=== PATIENT | male | born 1960 | race Caucasian/White ===

== ENCOUNTER 2017-11-11 19:48 | Emergency (ER) | payer OTHER | END 2017-11-11 23:17 | disposition short-term general hospital (02) | LOC: ED 19:48 | DX: S12.400A Unspecified displaced fracture of fifth cervical vertebra, initial encounter for closed fracture (principal); S12.600A Unspecified displaced fracture of seventh cervical vertebra, initial encounter for closed fracture; S12.300A Unspecified displaced fracture of fourth cervical vertebra, initial encounter for closed fracture; F07.81 Postconcussional syndrome; V80.010A Animal-rider injured by fall from or being thrown from horse in noncollision accident, initial encounter | CPT/HCPCS: 70450; 70486; 71046; 72125; 73090; 80053; 82150; 82550; 83690; 85025; 86850; 86900; 86901; 96374; 96375; 99285; G0480; J1170; J2060; J2405 ==

== ENCOUNTER 2019-04-01 20:17 | Emergency (ER) | payer OTHER ==
[~2019-04-01] VITALS: Ht 188 cm; Wt 97.5 kg
--- OUTSIDE RECORDS SUMMARY | ~2019-04-01 | XMS | Encounter Summary ---
Demographics + + + | Address | [address] | | | [place] [address] | + + + | Home Phone | | + + + | Preferred Language | Unknown | + + + | Marital Status | | + + + | Episcopal Affiliation | Unknown | + + + | Race | Unknown | + + + | Ethnic Group | Unknown | + + + Author + + + | Author | [facility] | | | and [place] | + + + | Organization | [facility] | | | and [place] | + + + | Address | Unknown | + + + | Phone | Unavailable | + + + Support + + + + + | Name | Relationship | Address | Phone | + + + + + | Radha Dowling | ECON | [address] | | | | | [place] | | | | | [address] | | + + + + + Care Team Providers + +------+ + | Care Wheel Tuner Name | Role | Phone | + +------+ + | Nick Yeh DO | PCP | | + +------+ + Encounter Details +--------+ + + + + | Date | Type | Department | Care Team | Description | +--------+ + + + + | 10/05/ | Orders Only | [facility] | Nate Rajan, | | | 2018 | | NEUROSURGERY [address] | | | | | [address] | [address] | | | | | [place], [place] | [place] [address] | | | | | [address] | [phone] | | | | | [phone] | | | +--------+ + + + + Social History + +-------+ +--------+------+ | Tobacco Use | Types | Packs/Day | Years | Date | | | | | Used | | + +-------+ +--------+------+ | Never Assessed | | | | | + +-------+ +--------+------+ + + + | Sex Assigned at | Date Recorded | | | | + + + | Not on file | | + + + + + + + | Job Start Date | Occupation | Industry | + + + + | Not on file | Not on file | Not on file | + + + + + + + + | Travel History | Travel Start | Travel End | + + + + + + | No recent travel history available. | + + documented as of this encounter Plan of Treatment Not on filedocumented as of this encounter Visit Diagnoses Not on filedocumented in this encounter"
--- OUTSIDE RECORDS SUMMARY | ~2019-04-01 | XMS | Encounter Summary ---
Demographics + + + | Address | [address] | | | [place] [address] | + + + | Home Phone | | + + + | Preferred Language | Unknown | + + + | Marital Status | | + + + | Lutheran Affiliation | Unknown | + + + | Race | Unknown | + + + | Ethnic Group | Unknown | + + + Author + + + | Author | [facility] | | | and [place] | + + + | Organization | [facility] | | | and [place] | + + + | Address | Unknown | + + + | Phone | Unavailable | + + + Support + + + + + | Name | Relationship | Address | Phone | + + + + + | Radha Dowling | ECON | [address] | | | | | [place] | | | | | [address] | | + + + + + Care Team Providers + +------+ + | Care Financial Services Specialist Name | Role | Phone | + +------+ + | Nick Yeh DO | PCP | | + +------+ + Reason for Referral Evaluate & Treat (Routine) + + + + + + + | Status | Reason | Specialty | Diagnoses / | Referred By | Referred To | | | | | Procedures | Contact | Contact | + + + + + + + | Authorized | Specialty | Gastroenterol | Diagnoses | [facility] | | Services | ogy | Colon | Nick Olsen DO | Gastroenterol | | | Required | | cancer | [address] | [address] | | | | screening | [address] [place] | [address] | | | | | | [place], [place] | [address] [place] | | | | | | [address] | [place], [place] | | | | | | Phone: | [phone] | | | | | | [phone] | Phone: | | | | | | Fax: | [phone] | | | | | | [phone] | Fax: | | | | | | | [phone] | + + + + + + + Reason for Visit + + + | Reason | Comments | + + + | Establish Care | | + + + Encounter Details +--------+---------+ + + + | Date | Type | Department | Care Team | Description | +--------+---------+ + + + | 03/04/ | Office | [facility] | Nick Yeh, | Encounter to | | 2019 | Visit | [facility] [place] | DO [address] | establish care | | | | [address] | [place] [facility] | (Primary Dx); | | | | [place], [place] | [address] | Preventative health | | | | [address] | | care; Colon cancer | | | | [phone] | | screening; Prostate | | | | | | cancer screening; | | | | | | Need for hepatitis C | | | | | | screening test; | | | | | | Need for | | | | | | vaccination; Need | | | | | | for shingles vaccine | +--------+---------+ + + + Social History + +-------+ +--------+------+ | Tobacco Use | Types | Packs/Day | Years | Date | | | | | Used | | + +-------+ +--------+------+ | Never Smoker | | | | | + +-------+ +--------+------+ + +---+---+---+ | Smokeless Tobacco: | | | | | Never Used | | | | + +---+---+---+ + + + + + | Alcohol Use | Drinks/Week | oz/Week | Comments | + + + + + | Yes | 3-5 Cans of beer | 3.0 - 5.0 | Socially | + + + + + + + + | Sex Assigned at [...] + + documented as of this encounter Last Filed Vital Signs + +---------+ + + | Vital Sign | Reading | Time Taken | Comments | + +---------+ + + | Blood Pressure | 108/70 | 03/04/2019 1:58 PM | | | | | PST | | + +---------+ + + | Pulse | 50 | 03/04/2019 1:58 PM | | | | | PST | | + +---------+ + + | Temperature | - | - | | + +---------+ + + | Respiratory Rate | - | - | | + +---------+ + + | Oxygen Saturation | 97% | 03/04/2019 1:58 PM | | | | | PST | | + +---------+ + + | Inhaled Oxygen | - | - | | | Concentration | | | | + +---------+ + + | Weight | - | - | | + +---------+ + + | Height | - | - | | + +---------+ + + | Body Mass Index | - | - | | + +---------+ + + documented in this encounter Patient Instructions Patient Instructions Shanta Ramos, Manager Style - 03/04/2019 2:00 PM PSTFormatti roman of this note might be different from the original. Please complete fasting labs: Please fast 10 hours on average prior to blood test. Water and black coffee are fine Lab Hours: [facility] Lab: [address] Saturday-Saturday 7 AM to 5 PM (walk ins), 5:30 PM (patients being seen in clinic/here for appt s) Closed weekends [facility]: [address] Saturday-Saturday 7 AM to 5:30 PM Closed weekends Urgent Care Lab: [address] Saturday-Saturday 8 AM to 12 PM (all patients) Referrals: During your office visit today we have ordered referrals for you - Gastroenterology -. The referral will be reviewed by our Insurance Authorization Coordinators. Once approved the ord er will be sent to the referred providers office. The referred providers office will contact you to schedule. If you have not heard to schedule your referral/s within 10 business days, please call our Referral Puller Machine at [phone] to check on the status of the referral a uthorization. Prevention Guidelines, Men Ages 50 to 64 Screening tests and vaccines are an important part of managing your health. A screening lan t is done to find possible disorders or diseases in people who don't have any symptoms. The goal is to find a disease early so lifestyle changes can be made and you can be watched more closely to reduce the risk of disease, or to detect it early enough to treat it most effect ively. Screening tests are not considered diagnostic, but are used to determine if more test ing is needed. Health counseling is essential, too. Below are guidelines for these, for men ages 50 to 64. Talk with your healthcare provider to make sure you re up-to-date on what y ou need. Screening Who needs it How often Alcohol misuse All men in this age group At routine exams Blood pressure All men in this age group Yearly checkup if your blood pressure is normal Normal blood pressure is less than 120/80 mm Hg If your blood pressure reading is higher than normal, follow the advice of your healthcare provider Colorectal cancer All men in this age group Flexible sigmoidoscopy every 5 years, or colono scopy every 10 years, or double-contrast barium enema every 5 years; yearly fecal occult blo od test or fecal immunochemical test; or a stool DNA test as often as your healthcare provid er advises; talk with your healthcare provider about which tests are best for you Depression All men in this age group At routine exams Type 2 diabetes or prediabetes All men beginning at age 45 and men without symptoms at any age who are overweight or obese and have 1 or more other risk factors for diabetes At least every 3 years (yearly if your blood sugar has already begun to rise) Type 2 diabetes All men with prediabetes Every year Hepatitis C Men at increased risk for infection talk with your healthcare provider At r outine exams. All men ages 50 to 70 should be tested at least once for hepatitis C. High cholesterol or triglycerides All men in this age group At least every 5 years HIV Men at increased risk for infection talk with your healthcare provider At routine e xams Lung cancer Adults age 55 to 80 who have smoked Yearly screening in smokers with 30 pack-ye ar history of smoking or who quit within 15 years Obesity All men in this age group At routine exams Prostate cancer Starting at age 45, talk to healthcare provider about risks and benefits of digital rectal exam (NURY) and prostate-specific antigen (PSA) screening1 At routine exams Syphilis Men at increased risk for infection talk with your healthcare provider At rout ine exams Tuberculosis Men at increased risk for infection talk with your healthcare provider Ask your healthcare provider Vision All men in this age group Ask your healthcare provider Vaccine Who needs it How often Chickenpox (varicella) All men in this age group who have no record of this infection or va ccine 2 doses; second dose should be given at least 4 weeks after the first dose Hepatitis A Men at increased risk for infection talk with your healthcare provider 2 do ses given at least 6 months apart Hepatitis B Men at increased risk for infection talk with your healthcare provider 3 do ses over 6 months; second dose should be given 1 month after the first dose; the third dose should be given at least 2 months after the second dose and at least 4 months after the firs t dose Haemophilus influenzaeType B (HIB) Men at increased risk for infection talk with your healthcare provider 1 to 3 doses Influenza (flu) All men in this age group Once a year Measles, mumps, rubella (MMR) Men in this age group through their late 50s who have no magaly rd of these infections or vaccines 1 or 2 doses; ask your healthcare provider Meningococcal Men at increased risk for infection talk with your healthcare provider 1 or more doses Pneumococcal conjugate vaccine (PCV13)and pneumococcal polysaccharidevaccine(PPSV23) Men at increased risk for infection talk with your healthcare provider PCV13: 1 dose age s 19 to 65 (protects against 13 types of pneumococcal bacteria) PPSV23: 1 to2 doses through age 64, or 1 dose at 65 or older (protects against 23 types o f pneumococcal bacteria) Tetanus/diphtheria/ pertussis (Td/Tdap) booster All men in this age group Td every 10 years, or a one-time dose of Tdap instead of a Td booster after age 18, then Td every 10 years Zoster All men ages 60 and older 1 dose Counseling Who needs it How often Diet and exercise Men who are overweight or obese When diagnosed, and then at routine exams Sexually transmitted infection prevention Men at increased risk for infection talk with your healthcare provider At routine exams Use of daily aspirin Men in this age group at risk for cardiovascular health problems At ro utine exams Use of tobacco and the health effects it can cause All men in this age group Every visit [address] [place] [address] [facility] Date Last Reviewed: 04/18/201619996492-6217 [employer]. [address] [place] [id number]. All righ ts reserved. This information is not intended as a substitute for professional medical care. Always follow your healthcare professional's instructions. documented in this encounter Progress Notes Nick Yeh DO - 03/04/2019 2:00 PM PSTFormatting of this note might be different fro m the original. Subjective: Joel Canela is a 58 y.o. male patient of Nick Yeh DO. Chief Complaint: Establish Care HPI Establish Care Mat is here to establish care. Prior pcp was Dr. Reeves in [place]. Preventive Health/Routine Physical Exam: Patient presents for physical exam and preventative health care. In general the patient feels his overall health is : good Exercise: Yes, cardio 3 days weekly and lifting 4 days weekly Pt is following a healthy diet : yes Colonoscopy: none Prostate Cancer screening: none No results found for: PSA High risk for STD: no Immunizations: Immunization History Administered Date(s) Administered DTP (PED) 08/09/1964 TD PF (2 LF TETANUS) (ADOL/ADULT) 06/13/1971 TDAP, (ADOL/ADULT) 03/04/2019 TYPHOID, VICPS 08/02/1970, 09/06/1970, 06/11/1972, 07/08/1973, 08/08/1976 H/o cervical fusion Patient broke his neck in October 2017 after an accident with a horse. Had a cervical fusion c4-c7. Has recovered well, denies pain. PREVENTIVE CARE/PRIOR VISITS 1. Any recommendations from Health Maintenance: No Preventative Services TOPIC LAST DONE NEXT DUE Hepatitis C Screening 1960 Vaccine: Influenza 11/16/2018 Colorectal Cancer Screening (Colonoscopy) 2010 Vaccine: Dtap/Tdap/Td 03/04/2019 03/04/2029 Vaccine: Zoster 2010 2. Any immunizations necessary: no Immunization History Administered Date(s) Administered DTP (PED) 08/09/1964 TD PF (2 LF TETANUS) (ADOL/ADULT) 06/13/1971 TDAP, (ADOL/ADULT) 03/04/2019 TYPHOID, VICPS 08/02/1970, 09/06/1970, 06/11/1972, 07/08/1973, 08/08/1976 No Active Allergies Medications: He currently has no medications in their medication list. Past Medical History He has a past medical history of Arthritis, Closed nondisplaced fracture of fourth cervical vertebra with routine healing, Closed nondisplaced fracture of seventh cervical vertebra wi th routine healing, Concussion, Injury to ligament of cervical spine, and Left arm weakness. Past Surgical History He has a past surgical history that includes cervical fusion (11/11/2017); Vasectomy; and f racture surgery. Family History: His family history includes Cancer in his maternal grandfather. Social History: Social History Socioeconomic History Marital status: Spouse name: Not on file Number of children: Not on file Years of education: Not on file Highest education level: Not on file Tobacco Use Smoking status: Never Smoker Smokeless tobacco: Never Used Substance and Sexual Activity Alcohol use: Yes Alcohol/week: 3.0 - 5.0 standard drinks Types: 3 - 5 Cans of beer per week Comment: Socially Drug use: Never Sexual activity: Yes Review of Systems Constitutional: Negative for chills, diaphoresis, fatigue, fever and unexpected weight bose ge. HENT: Negative for hearing loss, sinus pressure and sinus pain. Eyes: Negative for visual disturbance. Respiratory: Negative for cough, chest tightness, shortness of breath and wheezing. Cardiovascular: Negative for chest pain, palpitations and leg swelling. Gastrointestinal: Negative for abdominal pain, blood in stool, constipation, diarrhea, naus ea and vomiting. Endocrine: Negative for cold intolerance and heat intolerance. Genitourinary: Negative for difficulty urinating, dysuria, enuresis, flank pain, frequency and urgency. Musculoskeletal: Positive for joint swelling. Skin: Negative. Allergic/Immunologic: Negative for environmental allergies. Neurological: Negative for dizziness, weakness, light-headedness, numbness and headaches. Hematological: Negative. Psychiatric/Behavioral: Negative for decreased concentration, dysphoric mood and sleep dist urbance. The patient is not nervous/anxious. Objective: Vitals: 03/04/19 1358 BP: 108/70 Pulse: 50 SpO2: 97% Physical Exam Constitutional: He is oriented to person, place, and time. He appears well-developed and we ll-nourished. No distress. HENT: Head: Normocephalic and atraumatic. Right Ear: External ear normal. Left Ear: External ear normal. Nose: Nose normal. Mouth/Throat: Oropharynx is clear and moist. No oropharyngeal exudate. Eyes: Pupils are equal, round, and reactive to light. Conjunctivae are normal. Right eye ex hibits no discharge. Left eye exhibits no discharge. No scleral icterus. Neck: Normal range of motion. Neck supple. No JVD present. No tracheal deviation present. N o thyromegaly present. Cardiovascular: Normal rate, regular rhythm and intact distal pulses. Exam reveals no leyva p and no friction rub. No murmur heard. Pulmonary/Chest: Effort normal and breath sounds normal. No respiratory distress. He has no wheezes. He has no rales. He exhibits no tenderness. Abdominal: Soft. Bowel sounds are normal. He exhibits no distension and no mass. There is n o tenderness. There is no rebound and no guarding. No CVA tenderness Musculoskeletal: Normal range of motion. General: No tenderness or edema. Lymphadenopathy: He has no cervical adenopathy. Neurological: He is alert and oriented to person, place, and time. He exhibits normal muscl e tone. Coordination normal. Skin: Skin is warm and dry. No rash noted. He is not diaphoretic. Psychiatric: He has a normal mood and affect. His behavior is normal. Judgment and thought content normal. Nursing note and vitals reviewed. Ortho Exam No results found for this or any previous visit. Assessment and Plans: 1. Encounter to establish care 2. Preventative health care Lipid Panel Comprehensive Metabolic Panel CBC with Differential 3. Colon cancer screening [facility]ERRAL TO [facility] [place] [facility] 4. Prostate cancer screening PSA, Screen 5. Need for hepatitis C screening test Hepatitis C Ab 6. Need for vaccination Tdap vaccine greater than or equal to 7yo IM 7. Need for shingles vaccine zoster recombinant, PF, (SHINGRIX) 50 mcg/0.5 mL vaccine inje ction 1. Encounter to establish care 2. Preventative health care Diet reviewed Exercise reviewed Reviewed preventive care protocols Scheduled due services Updated immunizations. Preventive services Plan and appropriate handouts given Labs ordered. - Lipid Panel; Future - Comprehensive Metabolic Panel; Future - CBC with Differential; Future 3. Colon cancer screening Referral placed. - AMB REFERRAL TO [facility] 4. Prostate cancer screening Labs ordered. - PSA, Screen; Future 5. Need for hepatitis C screening test Labs ordered. - Hepatitis C Ab; Future 6. Need for vaccination Given. - Tdap vaccine greater than or equal to 7yo IM 7. Need for shingles vaccine Sent to pharmacy. - zoster recombinant, PF, (SHINGRIX) 50 mcg/0.5 mL vaccine injection; Inject 0.5 mLs into t he muscle once for 1 dose. Dispense: 1 each; Refill: 1 Return in about 1 year (around 03/04/2020) for annual exam. Care instructions and warning signs were discussed. Medications per orders. Side effects discussed. Labs and investigations per orders I JASPAL Ayala, am acting as a scribe on behalf of, and in the presence of Nick nuñez DO. Electronically signed by: Shanta Ramos, Manager Style 03/04/2019 1:51 PM I have reviewed and edited this note: Nick Yeh DO 03/05/19 I, Nick Yeh DO , personally performed the services described in this documentation, as scribed in my presence by Shanta Ramos and it is both accurate and complete. Electronical ly signed by Nick Yeh DO on 03/05/2019 at 12:54 PM . This note is dictated using [employer] voice recognition software. This note was dictated but not proofread. It may contain some grammatical errors. documented in this en counter Plan of Treatment + +------+--------+ + + | Name | Type | Priori | Associated Diagnoses | Order Schedule | | | | ty | | | + +------+--------+ + + | PSA, Screen | Lab | Routin | Prostate cancer | 1 Occurrences | | | | e | screening | starting 03/04/2019 | | | | | | until 03/03/2020 | + +------+--------+ + + | Lipid Panel | Lab | Routin | Preventative | Expected: | | | | e | health care | 03/04/2019, Expires: | | | | | | 03/03/2020 | + +------+--------+ + + | Comprehensive | Lab | Routin | Preventative | Expected: | | Metabolic Panel | | e | health care | 03/04/2019, Expires: | | | | | | 03/03/2020 | + +------+--------+ + + | CBC with | Lab | Routin | Preventative | Expected: | | Differential | | e | health care | 03/04/2019, Expires: | | | | | | 03/04/2020 | + +------+--------+ + + | Hepatitis C Ab | Lab | Routin | Need for hepatitis | Expected: | | | | e | C screening test | 03/04/2019, Expires: | | | | | | 03/04/2020 | + +------+--------+ + + + + +--------+ + + | Name | Type | Priori | Associated Diagnoses | Order Schedule | | | | ty | | | + + +--------+ + + | AMB REFERRAL TO [facility] | Outpatient | Routin | Colon cancer | Ordered: 03/04/2019 | | [facility] | Referral | e | screening | | + + +--------+ + + documented as of this encounter Procedures + +--------+ + + + | Procedure Name | Priori | Date/Time | Associated Diagnosis | Comments | | | ty | | | | + +--------+ + + + | LABS - EXTERNAL SCAN | | 03/09/2019 | | Results for this | | | | 12:00 AM | | procedure are in the | | | | PST | | results section. | + +--------+ + + + documented in this encounter Results LABS - EXTERNAL SCAN (03/09/2019 12:00 AM PST) + + + | Narrative | Performed At | + + + | Ordered by an | | | unspecified provider. | | + + + documented in this encounter Visit Diagnoses + + | Diagnosis | + + | Encounter to establish care - Primary Reserved for inherently not codable concepts | | WITHOUT codable children | + + | Preventative health care Routine general medical examination at a health care | | facility | + + | Colon cancer screening Special screening for malignant neoplasms, colon | + + | Prostate cancer screening Special screening for malignant neoplasm of prostate | + + | Need for hepatitis C screening test Special screening examination for other specified | | viral diseases | + + | Need for vaccination Need for prophylactic vaccination and inoculation against | | unspecified single disease | + + | Need for shingles vaccine Need for prophylactic vaccination and inoculation against | | varicella | + + documented in this encounter"
--- OUTSIDE RECORDS SUMMARY | ~2019-04-01 | XMS | Encounter Summary ---
Demographics + + + | Address | [address] | | | [place] [address] | + + + | Home Phone | | + + + | Preferred Language | Unknown | + + + | Marital Status | | + + + | Adventism Affiliation | Unknown | + + + | Race | Unknown | + + + | Ethnic Group | Unknown | + + + Author + + + | Author | [facility] | | | and [place] | + + + | Organization | [facility] | | | and [place] | + + + | Address | Unknown | + + + | Phone | Unavailable | + + + Support + + + + + | Name | Relationship | Address | Phone | + + + + + | Radha Dowling | ECON | [address] | | | | | [place] | | | | | [address] | | + + + + + Care Team Providers + +------+ + | Care Structural Steel Worker Apprentice Name | Role | Phone | + +------+ + | Nick Yeh DO | PCP | | + +------+ + Encounter Details +--------+ + + + + | Date | Type | Department | Care Team | Description | +--------+ + + + + | 04/01/ | Imaging | [facility] | Provider, | Arrived | | 2020 | Exam | [facility] | [address] | | | | | IMAGING | [place] | | | | | [phone] | [place] [id number] | | +--------+ + + + + [...] Not on filedocumented as of this encounter Procedures + +--------+ + + + | Procedure Name | Priori | Date/Time | Associated Diagnosis | Comments | | | ty | | | | + +--------+ + + + | MRI KNEE LEFT WO | Routin | 03/06/2019 | | Results for this | | CONTRAST | e | 12:00 AM | | procedure are in the | | | | PST | | results section. | + +--------+ + + + documented in this encounter Results MRI Knee Left wo Contrast (03/06/2019 12:00 AM PST) + + | Specimen | + + | | + + + + + | Narrative | Performed At | + + + | External films for comparison only | [facility] | | | | | No results will be in the chart. | | + + + + +---------+ + + | Performing | Address | City/State/Zipcode | Phone Number | | Organization | | | | + +---------+ + + | [facility] | | | | + +---------+ + + documented in this encounter Visit Diagnoses Not on filedocumented in this encounter"
--- OUTSIDE RECORDS SUMMARY | ~2019-04-01 | XMS | Encounter Summary ---
Demographics + + + | Address | [address] | | | [place] [address] | + + + | Home Phone | | + + + | Preferred Language | Unknown | + + + | Marital Status | | + + + | Oriental Orthodox Affiliation | Unknown | + + + | Race | Unknown | + + + | Ethnic Group | Unknown | + + + Author + + + | Author | [facility] | | | and [place] | + + + | Organization | [facility] | | | and [place] | + + + | Address | Unknown | + + + | Phone | Unavailable | + + + Support + + + + + | Name | Relationship | Address | Phone | + + + + + | Radha Dowling | ECON | [address] | | | | | [place] | | | | | [address] | | + + + + + Care Team Providers + +------+ + | Care Steward/Stewardess Wine Name | Role | Phone | + +------+ + | Nnea Diop | PCP | | | PA | | | + +------+ + Reason for Referral Diagnostic/Screening (Routine) + +--------+ + + + + | Status | Reason | Specialty | Diagnoses / | Referred By | Referred To | | | | | Procedures | Contact | Contact | + +--------+ + + + + | Authorized | | Radiology | Diagnoses | [place], | [address] | | | | | Localized | [facility] | | | | | osteoarthrit | Johnny, | [address] | | | | | is of left | MD [address] | | | | | knee | [address] | [place], [place] | | | | | Mechanical | [place], | [address] | | | | | knee pain, | [place] | Phone: | | | | | left | [address] | [phone] | | | | | Procedures | Phone: | Fax: | | | | | MRI Knee | [phone] | [phone] | | | | | Left wo | Fax: | | | | | | Contrast | [phone] | | + +--------+ + + + + Reason for Visit + + + | Reason | Comments | + + + | Follow-up, Office | | | Visit | | + + + | Knee Pain | Bilateral | + + + Self-referral (Routine) + +--------+ + + + + | Status | Reason | Specialty | Diagnoses / | Referred By | Referred To | | | | | Procedures | Contact | Contact | + +--------+ + + + + | Authorized | | Orthopedic | Diagnoses | | [place], | | | | Surgery | Knee pain, | | Owen | | | | | bilateral | | MD Johnny | | | | | | | [address] | | | | | | | [address] [place] | | | | | | | [place] | | | | | | | [address] | | | | | | | Phone: | | | | | | | [phone] | | | | | | | Fax: | | | | | | | [phone] | + +--------+ + + + + Encounter Details +--------+---------+ + + + | Date | Type | Department | Care Team | Description | +--------+---------+ + + + | 02/25/ | Office | [facility] | Owen Whitehead | Localized | | 2019 | Visit | ORTHOPEDIC SURGERY | MD [address] | osteoarthritis of | | | | [address] | [address] [place] | left knee (Primary | | | | [place], [place] | [place] [address] | Dx); Mechanical knee | | | | [address] | [phone] | pain, left | | | | [phone] | | | +--------+---------+ + + + Social History + +-------+ +--------+------+ | Tobacco Use | Types | Packs/Day | Years | Date | | | | | Used | | + +-------+ +--------+------+ | Never Smoker | | | | | + +-------+ +--------+------+ + +---+---+---+ | Smokeless Tobacco: | | | | | Never Used | | | | + +---+---+---+ + + +---------+ + | Alcohol Use | Drinks/Week | oz/Week | Comments | + + +---------+ + | Yes | | | Socially | + + +---------+ + + + + | Sex Assigned [...] this encounter Last Filed Vital Signs + + + + + | Vital Sign | Reading | Time Taken | Comments | + + + + + | Blood Pressure | - | - | | + + + + + | Pulse | - | - | | + + + + + | Temperature | - | - | | + + + + + | Respiratory Rate | - | - | | + + + + + | Oxygen Saturation | - | - | | + + + + + | Inhaled Oxygen | - | - | | | Concentration | | | | + + + + + | Weight | 97.5 kg (214 lb 15.2 | 02/25/2019 1:51 PM | | | | oz) | PST | | + + + + + | Height | 188 cm (6' 2") | 02/25/2019 1:51 PM | | | | | PST | | + + + + + | Body Mass Index | 27.6 | 02/25/2019 1:51 PM | | | | | PST | | + + + + + documented in this encounter Patient Instructions Patient Instructions Owen Whitehead MD - 02/25/2019 2:15 PM PST Knee Pain with Uncertain Cause There are several common causes for knee pain. These can include: A sprain of the ligaments that support the joint An injury to the cartilage lining of the joint Arthritis from odha-bgr-vkhy or inflammation There are other causes as well. There may also be swelling, reduced movement of the knee cee int, and pain with walking. A definite diagnosis will still need to be made. If your symptom s don't improve, further follow-up and testing may be needed. Home care Stay off the injured leg as much as possible until pain improves. Apply an ice pack over the injured area for 15 to 20 minutes every 3 to 6 hours. You rg uld do this for the first 24 to 48 hours. You can make an ice pack by filling a plastic bag that seals at the top with ice cubes and then wrapping it with a thin towel. Continue to use ice packs for relief of pain and swelling as needed. As the ice melts, be careful not to ge t your wrap, splint, or cast wet. After 48 hours, apply heat (warm shower or warm bath) for 15 to 20 minutes several times a day, or alternate ice and heat. If you have to wear a hook- and-loop knee brace, you can open it to apply the ice pack, or heat, directly to the knee. N ever put ice directly on the skin. Always wrap the ice in a towel or other type of cloth. You may use hrst-ilt-sfazaye pain medicine to control pain, unless another pain medicine was prescribed. If you have chronic liver or kidney disease or ever had a stomach ulcer or gastrointestinal bleeding, talk with your healthcare provider before using these medicines. If crutches or a walker have been recommended, don't put weight on the injured leg until you can do so without pain. Check with your healthcare provider before returning to sports or full work duties. If you have a smyt-avy-xtpo knee brace, you can remove it to bathe and sleep, unless zaire d otherwise. Follow-up care Follow up with your healthcare provider as advised. This is usually within 1 to 2 weeks. If X-rays were taken, you will be told of any new findings that may affect your care Call 911 Call 911 if you have: Shortness of breath Chest pain When to seek medical advice Call your healthcare provider right away if any of these occur: Toes or foot becomes swollen, cold, blue, numb, or tingly Pain or swelling spreads over the knee or calf Warmth or redness appears over the knee or calf Other joints become painful Rash appears Fever of 100.4F (38C) or higher, or as directed by your healthcare provider Chills Date Last Reviewed: 07/16/201719999550-6438 The [employer]. [address] [place] [address]. All righ ts reserved. This information is not intended as a substitute for professional medical care. Always follow your healthcare professional's instructions. documented in this encounter Progress Notes Owen Whitehead MD - 02/25/2019 2:15 PM PSTFormatting of this note might be dif ferent from the original. [facility] RETURN CLINIC VISIT Pt. Name/Age/: Joel Canela 58 y.o. 1960 Primary Care Physician: Nena Diop Chief Complaint/Reason for Visit: Follow-up, Office Visit and Knee Pain (Bilateral) History of Present Illness: The patient is a pleasant 58 y.o. male who presents for a repeat visit for bilateral knee p ain with the left being worse than the right. He reports continual clicking sensations in t he knee. It catches and bothers him. He localizes this to the medial aspect of the knee. He reports that his pain is about a 3 out of 10 at baseline and a 5 out of 10 at its worst. It has not been improving over time. Lifting and doing a stairmaster causes him difficulty . He worked with therapy but did not really feel like he had any significant benefit from i t. Past Medical History: History reviewed. No pertinent past medical history. Past Surgical History: Procedure Laterality Date CERVICAL FUSION 11/11/2017 Allergies: Allergies Allergen Reactions Hydromorphone Anxiety Agitation Current Medications: No current outpatient medications on file. No current facility-administered medications for this visit. Family History: History reviewed. No pertinent family history. Social History: Social History Socioeconomic History Marital status: Spouse name: Not on file Number of children: Not on file Years of education: Not on file Highest education level: Not on file Occupational History Not on file Social Needs Financial resource strain: Not on file Food insecurity: Worry: Not on file Inability: Not on file Transportation needs: Medical: Not on file Non-medical: Not on file Tobacco Use Smoking status: Never Smoker Smokeless tobacco: Never Used Substance and Sexual Activity Alcohol use: Yes Comment: Socially Drug use: Never Sexual activity: Not on file Lifestyle Physical activity: Days per week: Not on file Minutes per session: Not on file Stress: Not on file Relationships Social connections: Talks on phone: Not on file Gets together: Not on file Attends sikh service: Not on file Active member of club or organization: Not on file Attends meetings of clubs or organizations: Not on file Relationship status: Not on file Intimate partner violence: Fear of current or ex partner: Not on file Emotionally abused: Not on file Physically abused: Not on file Forced sexual activity: Not on file Other Topics Concern Not on file Social History Narrative Not on file Review of Systems All of these are negative unless otherwise marked Musculoskeletal: [] Physical handicaps [] Back or shoulder pain []Rheumatoid disease [] Osteoarthritis [x] Joint pain [x] Joint swelling []Gout [] Leg cramps at night Endocrine: [] Thyroid [] Diabetes Admission Weight: Weight: 97.5 kg (214 lb 15.2 oz) BMI: Body mass index is 27.6 kg/m . Physical Examination: Ht 1.88 m (6' 2") | Wt 97.5 kg (214 lb 15.2 oz) | BMI 27.60 kg/m General: Alert, oriented, no acute distress HEENT: Normocephalic, atraumatic Cardiovascular: Regular rate and rhythm Respiratory: Breathing normally at a regular rate Ortho Exam Left knee exam: Nontender over the left medial joint line. Pain with valgus stress test. Correctable varu s deformity. This is very mild deformity honestly. Knee is stable to varus valgus stress t esting. Stable to anterior and posterior drawer testing. Positive Sofía's type maneuver s. Diagnostic Studies: Imaging Labs- Lab Results Component Value Date NA 142 11/12/2017 K 3.9 11/12/2017 CL 108 11/12/2017 CO2 27 11/12/2017 ANIONGAP 11 11/12/2017 BUN 15 11/12/2017 CALCIUM 8.3 (L) 11/12/2017 ALBUMIN 3.7 11/12/2017 BILITOT 0.5 11/12/2017 AST 40 11/12/2017 ALT 33 11/12/2017 WBC 12.93 (H) 11/12/2017 HGB 14.7 11/12/2017 MCV 86.8 11/12/2017 LABPLAT 269 11/12/2017 INR 1.0 11/12/2017 Assessment and Plan: 1. Localized osteoarthritis of left knee MRI Knee Left wo Contrast 2. Mechanical knee pain, left MRI Knee Left wo Contrast The patient is a pleasant 58 y.o. male who presents for a repeat visit with left knee moder ate to severe medial joint space narrowing with likely meniscal tear. Treatment options were discussed with the patient including non-operative treatment modalities. Considering the na ture of the patient's condition, decision was made to proceed with a left knee MRI. The pat ient is mostly bothered by his catching symptoms. The pain is much less bothersome for him. In this sense, it may be worthwhile to consider knee arthroscopy. To that effect, I think it is worth getting an MRI of the left knee. Hopefully that will give us some good informa tion. We will see him back after the MRI. Follow-up: Return After MRI. with no x-ray Portions of this report were transcribed using voice recognition software. Every effort wa s made to ensure accuracy; however, inadvertent computerized inbound sales consultant errors may be pre sent. I appreciate the opportunity to help with the management of this patient. Owen Whitehead MD documented in this encounter Plan of Treatment + +---------+--------+ + + | Name | Type | Priori | Associated Diagnoses | Order Schedule | | | | ty | | | + +---------+--------+ + + | MRI Knee Left wo | Imaging | Routin | Localized | Expected: | | Contrast | | e | osteoarthritis of | 02/25/2019, Expires: | | | | | left knee | 02/26/2020 | | | | | Mechanical knee | | | | | | pain, left | | + +---------+--------+ + + documented as of this encounter Visit Diagnoses + + | Diagnosis | + + | Localized osteoarthritis of left knee - Primary | + + | Mechanical knee pain, left | + + documented in this encounter
--- OUTSIDE RECORDS SUMMARY | ~2019-04-01 | XMS | Encounter Summary ---
Demographics + + + | Address | [address] | | | [place] [address] | + + + | Home Phone | | + + + | Preferred Language | Unknown | + + + | Marital Status | | + + + | Yazidi Affiliation | Unknown | + + + | Race | Unknown | + + + | Ethnic Group | Unknown | + + + Author + + + | Author | [facility] | | | and [place] | + + + | Organization | [facility] | | | and [place] | + + + | Address | Unknown | + + + | Phone | Unavailable | + + + Support + + + + + | Name | Relationship | Address | Phone | + + + + + | Radha Dowling | ECON | [address] | | | | | [place] | | | | | [address] | | + + + + + Care Team Providers + +------+ + | Care Night Clerk Name | Role | Phone | + +------+ + PCP | Unavailable | + +------+ + Encounter Details +--------+ + + + + | Date | Type | Department | Care Team | Description | +--------+ + + + + | 11/11/ | Hospital | [facility] | Conversion | Diagnosis unknown | | 2018 | Encounter | CONVERSION [address] | Transaction, | | | | | [address] | Provider Unknown | | | | | [place] | [phone] | | | | | [address] | | | | | | [phone] | | | +--------+ + + + [...] | + +--------+ + + + | XR CHEST 2 VIEWS | Routin | 11/11/2017 | | Results for this | | | e | 10:01 PM | | procedure are in the | | | | PDT | | results section. | + +--------+ + + + documented in this encounter Results XR Chest 2 Vws (11/11/2017 10:01 PM PDT) + + | Specimen | + + | | + + + + + | Narrative | Performed At | + + + | This is a non-reportable procedure without a radiologist report and | | | is used for image storage only | | + + + + + | Procedure Note | + + | Alfredo Wall Conversion - 10/29/2018 11:15 AM PDT This is a non-reportable procedure | | without a radiologist report and isused for image storage only | + + documented in this encounter Visit Diagnoses + + | Diagnosis | + + | Diagnosis unknown Other unknown and unspecified cause of morbidity or mortality | + + documented in this encounter"
--- OUTSIDE RECORDS SUMMARY | ~2019-04-01 | XMS | Encounter Summary ---
Demographics + + + | Address | [address] | | | [place] [address] | + + + | Home Phone | | + + + | Preferred Language | Unknown | + + + | Marital Status | | + + + | Moravian Affiliation | Unknown | + + + | Race | Unknown | + + + | Ethnic Group | Unknown | + + + Author + + + | Author | [facility] | | | and [place] | + + + | Organization | [facility] | | | and [place] | + + + | Address | Unknown | + + + | Phone | Unavailable | + + + Support + + + + + | Name | Relationship | Address | Phone | + + + + + | Radha Dowling | ECON | [address] | | | | | [place] | | | | | [address] | | + + + + + Care Team Providers + +------+ + | Care Laundry Bag Punch Operator Name | Role | Phone | + +------+ + PCP | Unavailable | + +------+ + Encounter Details +--------+ + + + + | Date | Type | Department | Care Team | Description | +--------+ + + + + | 02/11/ | Hospital | [facility] | Conversion | Closed nondisplaced | | 2018 | Encounter | CENTER OPI XRAY | Transaction, | fracture of fourth | | | | [address] | Provider Unknown | cervical vertebra | | | | [address] [place], [place] | [phone] | with routine | | | | [address] | | healing, unspecified | | | | [phone] | Nate Rajan, | fracture | | | | | PROC[facility] [address] | morphology, | | | | | [address] | subsequent | | | | | [place] [address] | encounter; Closed | | | | | [phone] | nondisplaced | | | | | | fracture of seventh | | | | | | cervical vertebra | | | | | | with routine | | | | | | healing, unspecified | | | | | | fracture | | | | | | morphology, | | | | | | subsequent | | | | | | encounter; Injury to | | | | | | ligament of | | | | | | cervical spine, | | | | | | sequela; Left arm | | | | | | weakness | +--------+ + + + + Social [...] + + documented as of this encounter Medications at Time of Discharge + + + +---------+ + + | Medication | Sig | Dispensed | Refills | Start | End Date | | | | | | Date | | + + + +---------+ + + | diazePAM (VALIUM) | Take 1 tablet by | 60 | 0 | 11/29/19 | | | 5 mg tablet | mouth every 6 (six) | tablet | | 18 | 9 | | | hours as needed for | | | | | | | Muscle spasms. | | | | | + + + +---------+ + + | MANUAL SELECTION | Dispense and provide | 1 each | 0 | 12/21/19 | | | NEEDED - hospital | instruction as | | | 18 | 9 | | bed (medical collections specialist) | needed. | | | | | + + + +---------+ + + | oxyCODONE | Take one to two | 80 | 0 | 11/29/19 | | | (ROXICODONE) 5 mg | tablets as needed | tablet | | 18 | 9 | | tablet | for pain every 6 | | | | | | | hours | | | | | + + + +---------+ + + | risperiDONE | take 1 or 2 tablets | | 0 | 11/16/19 | | | (RISPERDAL) 0.25 MG | by mouth every 6 | | | 18 | 9 | | tablet | hours if needed for | | | | | | | AGITATION | | | | | + + + +---------+ + + documented as of this encounter Plan of Treatment Not on filedocumented as of this encounter Procedures + +--------+ + + + | Procedure Name | Priori | Date/Time | Associated Diagnosis | Comments | | | ty | | | | + +--------+ + + + | XR CERVICAL SPINE 2 | Routin | 02/11/2018 | | Results for this | | OR 3 VIEWS | e | 2:22 PM | | procedure are in the | | | | PST | | results section. | + +--------+ + + + documented in this encounter Results XR Cervical Spine 2 or 3 Views (02/11/2018 2:22 PM PST) + + | Specimen | + + | | + + + + + | Impressions | Performed At | + + + | Findings and impression: Anterior fusion surgery changes with disc | | | spacer seen from C4 up to C7. Hardware appears grossly intact. No | | | prevertebral soft tissue swelling seen. Cervical spine vertebral body | | | heights appear to be maintained. | | + + + + + + | Narrative | Performed At | + + + | [facility] CERVICAL SPINE LIMITED 2-3 VIEW 1960 | | | 02/11/2018 2:22 PM INDICATION: C4 fracture. C7 fracture. | | | COMPARISON: Cervical spine radiographs on 12/26/2017. TECHNIQUE: | | | Cervical spine series, 2 views | | + + + + + | Procedure Note | + + | Alfredo Wall Conversion - 10/29/2018 11:15 AM PDT [facility] CERVICAL SPINE LIMITED | | 2-3 [id number] 2:22 PM INDICATION: C4 fracture. C7 fracture. COMPARISON: | | Cervical spine radiographs on 12/26/2017. TECHNIQUE: Cervical spine series, 2 views | | IMPRESSION: Findings and impression: Anterior fusion surgery changes with disc spacer | | seen from C4 up to C7. Hardware appears grossly intact. No prevertebral soft tissue | | swelling seen. Cervical spine vertebral body heights appear to be maintained. | | | |COMPARISON: Cervical spine radiographs on 12/26/2017. | | | |TECHNIQUE: Cervical spine series, 2 views | | | |IMPRESSION: | |Findings and impression: Anterior fusion surgery changes with disc spacer seen from C4 up t o C7. Hardware appears grossly intact. No prevertebral soft tissue swelling seen. Cervical s pine vertebral body heights appear to be maintained. | | | | | + + documented in this encounter Visit Diagnoses + + | Diagnosis | + + | Closed nondisplaced fracture of fourth cervical vertebra with routine healing, | | unspecified fracture morphology, subsequent encounter | + + | Closed nondisplaced fracture of seventh cervical vertebra with routine healing, | | unspecified fracture morphology, subsequent encounter | + + | Injury to ligament of cervical spine, sequela | + + | Left arm weakness Other musculoskeletal symptoms referable to limbs | + + documented in this encounter"
--- OUTSIDE RECORDS SUMMARY | ~2019-04-01 | XMS | Encounter Summary ---
Demographics + + + | Address | [address] | | | [place] [address] | + + + | Home Phone | | + + + | Preferred Language | Unknown | + + + | Marital Status | | + + + | Hinduism Affiliation | Unknown | + + + | Race | Unknown | + + + | Ethnic Group | Unknown | + + + Author + + + | Author | [facility] | | | and [place] | + + + | Organization | [facility] | | | and [place] | + + + | Address | Unknown | + + + | Phone | Unavailable | + + + Support + + + + + | Name | Relationship | Address | Phone | + + + + + | Radha Dowling | ECON | [address] | | | | | [place] | | | | | [address] | | + + + + + Care Team Providers + +------+ + | Care Education Analyst Name | Role | Phone | + +------+ + | Nick Yeh DO | PCP | | + +------+ + Reason for Visit +---------+ + | Reason | Comments | +---------+ + | Results | | +---------+ + Encounter Details +--------+ + + + + | Date | Type | Department | Care Team | Description | +--------+ + + + + | 03/10/ | Telephone | [facility] | Nick Yeh, | Results | | 2019 | | [facility] | DO [address] | | | | | [address] | [place] | | | | | [place], [place] | [address] | | | | | [address] | | | | | | [phone] | | | +--------+ + + + [...] filedocumented as of this encounter Visit Diagnoses + + | Diagnosis | + + | Other hyperlipidemia | + + documented in this encounter"
--- OUTSIDE RECORDS SUMMARY | ~2019-04-01 | XMS | Encounter Summary ---
Demographics + + + | Address | [address] | | | [place] [address] | + + + | Home Phone | | + + + | Preferred Language | Unknown | + + + | Marital Status | | + + + | Buddhism Affiliation | Unknown | + + + | Race | Unknown | + + + | Ethnic Group | Unknown | + + + Author + + + | Author | [facility] | | | and [place] | + + + | Organization | [facility] | | | and [place] | + + + | Address | Unknown | + + + | Phone | Unavailable | + + + Support + + + + + | Name | Relationship | Address | Phone | + + + + + | Radha Dowling | ECON | [address] | | | | | [place] | | | | | [address] | | + + + + + Care Team Providers + +------+ + | Care Peer Tutor Name | Role | Phone | + +------+ + | Nick Yeh DO | PCP | | + +------+ + Reason for Visit + + + | Reason | Comments | + + + | Follow-up, Office | Review MRI | | Visit | | + + + | Knee Pain | Left | + + + Self-referral (Routine) + [...] | | | | | | | [address] | | | | | | | Phone: | | | | | | | [phone] | | | | | | | Fax: | | | | | | | [phone] | + +--------+ + + + + Encounter Details +--------+---------+ + + + | Date | Type | Department | Care Team | Description | +--------+---------+ + + + | 03/30/ | Office | [facility] Owen Whitehead | Primary | | 2020 | Visit | ORTHOPEDIC SURGERY | MD [address] | osteoarthritis of | | | | [address] [facility] | [address] | left knee (Primary | | | | [place], [place] | [place] [address] | Dx) | | | | [address] | [phone] | | | | | [phone] | | | +--------+---------+ + + + [...] | 97.5 kg (214 lb 15.2 | 03/30/2019 3:59 PM | | | | oz) | PST | | + + + + + | Height | 188 cm (6' 2") | 03/30/2019 3:59 PM | | | | | PST | | + + + + + | Body Mass Index | 27.6 | 03/30/2019 3:59 PM | | | | | PST | | + + + + + documented in this encounter Patient Instructions Patient Instructions Owen Whitehead MD - 03/30/2019 3:45 PM PSTFormatting of t his note might be different from the original. Understanding Osteoarthritis of the Knee A joint is a place where two bones meet. The knee is called a hinge joint. This joint is fo rmed where the thighbone (femur) meets the shinbone (tibia). A healthy knee joint bends free ly. Knee osteoarthritis is a condition where parts of the knee joint wear out. This can lead to pain, stiffness, and limited movement. What is osteoarthritis? Every joint contains a smooth tissue called cartilage. Cartilage cushions the ends of bones and helps bones in a joint glide smoothly against each other. Knee osteoarthritis occurs wh en cartilage in the knee joint begins to break down and wear away. Bones may become exposed and rub together. The cartilage may become irritated and rough. This prevents smooth movemen t of the joint and can lead to pain. Causes of osteoarthritis of the knee Causes can include: Wear and tear from normal use over time Overuse of the knee during sports or work activities Being overweight. This increases stress on the knee joint. Misalignment of the knee joint Injury to the knee Symptoms of osteoarthritis of the knee Common symptoms include: Pain and swelling around the joint. The pain and swelling get worse with activity and be tter with rest. Grinding sound when moving the knee Reduced knee movement Knee stiffness. This is often worse first thing in the morning. Treating osteoarthritis of the knee Osteoarthritis is a long-term condition. Treatment usually focuses on managing symptoms. Tr eatment may include: Idco-pai-qabkloy or prescription medicines taken by mouth to help relieve pain and swell ing Injections of medicine into the joint to help relieve symptoms for a time A weight-loss plan for people who are overweight A plan of physical therapy and exercises to improve the strength and flexibility of the muscles around the knee Heat or cold therapy to help relieve pain and stiffness Assistive devices that help with movement, such as a cane or a walker Assistive devices that make activities of daily life easier, such as raised toilet seats or shower bars If other treatments don t do enough to relieve symptoms, you may need surgery to replace the joint. During this surgery, the damaged joint is removed. An artificial knee joint is th en put into place. This can help relieve pain and stiffness and restore movement of the knee . When to call your healthcare provider Call your healthcare provider right away if you have any of these: Fever of 100.4F (38C) or higher, or as directed Symptoms that don t get better with prescribed medicines or get worse New symptoms Date Last Reviewed: 05/26/201519994622-9414 [employer]. [address] [place] [address]. All righ ts reserved. This information is not intended as a substitute for professional medical care. Always follow your healthcare professional's instructions. documented in this encounter Progress Notes Owen Whitehead MD - 03/30/2019 3:45 PM PSTFormatting of this note might be dif ferent from the original. [facility] RETURN CLINIC VISIT Pt. Name/Age/: Joel Canela 58 y.o. 1960 Primary Care Physician: Nick Yeh Chief Complaint/Reason for Visit: Follow-up, Office Visit (Review MRI) and Knee Pain (Left ) History of Present Illness: The patient is a pleasant 58 y.o. male who presents for a repeat visit for continued left k nee pain. The patient states that his pain is a 3 out of 10 at baseline and a 5 out of 10 a t its worst. It bothers him if he runs. He has had no improvement since his last visit. Susannah gilmore presents today for an MRI follow-up. He was curious as to what it would show. Past Medical History: Past Medical History: Diagnosis Date Arthritis Closed nondisplaced fracture of fourth cervical vertebra with routine healing Closed nondisplaced fracture of seventh cervical vertebra with routine healing Concussion Injury to ligament of cervical spine Left arm weakness Past Surgical History: Procedure Laterality Date CERVICAL FUSION 11/11/2017 FRACTURE SURGERY VASECTOMY Allergies: No Known Allergies Current Medications: No current outpatient medications on file. No current facility-administered medications for this visit. Family History: Family History Problem Relation Age of Onset Cancer Maternal Grandfather Social History: Social History Socioeconomic History Marital [...] Socially Drug use: Never Sexual activity: Yes Lifestyle Physical activity: Days per week: Not on file Minutes per session: Not on file Stress: Not on file Relationships Social connections: Talks on phone: Not on file Gets together: Not on file Attends muslim service: Not on file Active member of [...] or shoulder pain []Rheumatoid disease [] Osteoarthritis [] Joint pain [] Joint swelling []Gout [] Leg cramps at [...] at a regular rate Ortho Exam Left Knee Exam Tenderness: None Left Knee Passive Range of Motion: 0/130 Left Knee Anterior Drawer Negative Posterior Drawer Negative Varus Stress Negative Valgus Stress Negative Sofía's Negative Diagnostic Studies: Imaging MRI of the left knee dated 03/06/2019 reviewed. The patient has full-thickness cartilage l esions in the medial compartment. These are kissing lesions on both the tibial plateau and the femoral condyle. There is edema in the medial tibial plateau. He also has a posterior horn medial meniscus tear Labs- Lab Results Component Value Date NA 142 11/12/2017 K 3.9 11/12/2017 CL 108 11/12/2017 CO2 27 11/12/2017 ANIONGAP 12 03/09/2019 BUN 15 11/12/2017 CALCIUM 8.3 (L) 11/12/2017 ALBUMIN 3.7 11/12/2017 BILITOT 0.5 11/12/2017 AST 40 11/12/2017 ALT 33 11/12/2017 WBC 12.93 (H) 11/12/2017 HGB 14.7 11/12/2017 MCV 86.8 11/12/2017 LABPLAT 269 11/12/2017 INR 1.0 11/12/2017 Assessment and Plan: 1. Primary osteoarthritis of left knee The patient is a pleasant 58 y.o. male who presents for a repeat visit with moderate to sev ere osteoarthritis of the left knee with some catching symptoms likely caused by his menisca l tear. Treatment options were discussed with the patient including non-operative treatment modalities. Considering the nature of the patient's condition, decision was made to proceed with observation. He would like to get another injection but does not want a get one before the weekend. We will have him come back another day to get another injection. We discusse d the role of surgical intervention. From my standpoint, that is likely not a good idea. I think that an arthroscopic intervention is likely to have a high failure rate. Follow-up: Return for injection. with no x-ray Portions of this report were transcribed using voice recognition software. Every effort wa s made to ensure accuracy; however, inadvertent computerized continuous mining machine lode miner errors may be pre sent. I appreciate the opportunity to help with the management of this patient. Owen Whitehead MD documented in this encounter Plan of Treatment Not on filedocumented as of this encounter Visit Diagnoses + + | Diagnosis | + + | Primary osteoarthritis of left knee - Primary Primary localized osteoarthrosis, lower | | leg | + + documented in this encounter
--- OUTSIDE RECORDS SUMMARY | ~2019-04-01 | XMS | Encounter Summary ---
Demographics + + + | Address | [address] | | | [place] [address] | + + + | Home Phone | | + + + | Preferred Language | Unknown | + + + | Marital Status | | + + + | Mu-Ism Affiliation | Unknown | + + + | Race | Unknown | + + + | Ethnic Group | Unknown | + + + Author + + + | Author | [facility] | | | and [place] | + + + | Organization | [facility] | | | and [place] | + + + | Address | Unknown | + + + | Phone | Unavailable | + + + Support + + + + + | Name | Relationship | Address | Phone | + + + + + | Radha Dowling | ECON | [address] | | | | | [place] | | | | | [address] | | + + + + + Care Team Providers + +------+ + | Care Research Executive Name | Role | Phone | + +------+ + | Nena Diop | PCP | | | PA | | | + +------+ + Encounter Details +--------+ + + + + | Date | Type | Department | Care Team | Description | +--------+ + + + + | 03/02/ | Abstract | [facility] | Provider, | | | 2019 | | MEDICINE MARIANA | [address] | | | | | [address] | [place]. | | | | | [place] | [place] [address] | | | | | [address] | | | | | | [phone] | | | +--------+ + + + [...]
--- OUTSIDE RECORDS SUMMARY | ~2019-04-01 | XMS | Encounter Summary ---
Demographics + + + | Address | [address] | | | [place] [address] | + + + | Home Phone | | + + + | Preferred Language | Unknown | + + + | Marital Status | | + + + | Amish Affiliation | Unknown | + + + | Race | Unknown | + + + | Ethnic Group | Unknown | + + + Author + + + | Author | [facility] | | | and [place] | + + + | Organization | [facility] | | | and [place] | + + + | Address | Unknown | + + + | Phone | Unavailable | + + + Support + + + + + | Name | Relationship | Address | Phone | + + + + + | Radha Dowling | ECON | [address] | | | | | [place] | | | | | [address] | | + + + + + Care Team Providers + +------+ + | Care Civil Engineering Project Manager Name | Role | Phone | + [...] Unknown | | | | | [place] | [phone] | | | | | [address] | | | | | | [phone] | | | +--------+ + + + [...] | + +--------+ + + + | CT HEAD WO CONTRAST | Routin | 11/11/2017 | | Results for this | | | e | 9:59 PM | | procedure are in the | | | | PDT | | results section. | + +--------+ + + + documented in this encounter Results CT Head wo Contrast (11/11/2017 9:59 PM PDT) + + | Specimen | + + | | + + + + + | Narrative | Performed At | + + + | This is a non-reportable procedure without a radiologist report and | | | is used for image storage only | | + + + + + | Procedure Note | + + | [facility] Alfred[facility] Leesa - 10/29/2018 11:15 AM PDT This is [...]
--- OUTSIDE RECORDS SUMMARY | ~2019-04-01 | XMS | Encounter Summary ---
Demographics + + + | Address | [address] | | | [place] [address] | + + + | Home Phone | | + + + | Preferred Language | Unknown | + + + | Marital Status | | + + + | Confucianist Affiliation | Unknown | + + + | Race | Unknown | + + + | Ethnic Group | Unknown | + + + Author + + + | Author | [facility] | | | and [place] | + + + | Organization | [facility] | | | and [place] | + + + | Address | Unknown | + + + | Phone | Unavailable | + + + Support + + + + + | Name | Relationship | Address | Phone | + + + + + | Radha Dowling | ECON | [address] | | | | | [place] | | | | | [address] | | + + + + + Care Team Providers + +------+ + | Care Financial Operations Consultant Name | Role | Phone | + +------+ + | Nick Yeh DO | PCP | | + +------+ + Reason for Visit +--------+ + | Reason | Comments | +--------+ + | Letter | return to work letter | +--------+ + Encounter Details +--------+ + + + + | Date | Type | Department | Care Team | Description | +--------+ + + + + | 11/18/ | Telephone | [facility] | Nate Rajan, | Letter (return to | | 2019 | | NEUR[facility]ERY [address] | [employer]PER[employer] [address] | work letter ) | | | | [address] | [address] | | | | | [place], [place] | [place] [address] | | | | | [address] | [phone] | | | | | [phone] | | | +--------+ + + + [...]
--- OUTSIDE RECORDS SUMMARY | ~2019-04-01 | XMS | Clinical Summary ---
Demographics + + + | Address | [address] | | | [place] [address] | + + + | Home Phone | | + + + | Preferred Language | Unknown | + + + | Marital Status | | + + + | Oriental Orthodox Affiliation | Unknown | + + + | Race | Unknown | + + + | Ethnic Group | Unknown | + + + Author + + + | Author | [facility] | | | and [place] | + + + | Organization | [facility] | | | and [place] | + + + | Address | Unknown | + + + | Phone | Unavailable | + + + Support + + + + + | Name | Relationship | Address | Phone | + + + + + | Radha Dowling | ECON | [address] | | | | | [place] | | | | | [address] | | + + + + + Care Team Providers + +------+ + | Care Bar Captain Name | Role | Phone | + +------+ + | Nick Yeh DO | PCP | | + +------+ + Allergies No Known Allergies Medications + + + +---------+------+------+-------+ | Medication | Sig | Dispensed | Refills | Star | End | Statu | | | | | | t | Date | s | | | | | | Date | | | + + + +---------+------+------+-------+ | zoster | Inject 0.5 mLs into | 1 each | 1 | 02/15 | 02/15 | Expir | | recombinant, PF, | the muscle once for | | | 11/04 | 11/04 | ed | | (SHINGRIX) 50 | 1 dose. | | | 19 | 19 | | | mcg/0.5 mL vaccine | | | | | | | | injectionIndications | | | | | | | | : Need for shingles | | | | | | | | vaccine | | | | | | | + + + +---------+------+------+-------+ Active Problems + + + | Problem | Noted Date | + + + | Other hyperlipidemia | 03/10/2019 | + + + | Hx of fusion of cervical spine | 03/04/2019 | + + + | Primary osteoarthritis of left knee | 10/28/2018 | + + + | Primary osteoarthritis of right knee | 10/28/2018 | + + + | Closed nondisplaced fracture of fourth cervical vertebra with | 11/12/2017 | | routine healing | | + + + | Injury to ligament of cervical spine | 11/12/2017 | + + + | Left arm weakness | 11/12/2017 | + + + | Closed nondisplaced fracture of seventh cervical vertebra with | 11/12/2017 | | routine healing | | + + + Encounters +--------+ + + + + | Date | Type | Specialty | Care Team | Description | +--------+ + + + + | 04/01/ | Imaging | Radiology | Ruslan, | Arrived | | 2019 | Exam | | MD [place] | | +--------+ + + + + | 03/30/ | Office | Orthopedic Surgery | [facility]head | Primary | | 2019 | Visit | | MD Johnny | osteoarthritis of | | | | | | left knee (Primary | | | | | | Dx) | +--------+ + + + + | 03/30/ | Telephone | Family Medicine | Nick Yeh, | Lab Results; | | 2019 | | | DO | Referral | +--------+ + + + + | 03/19/ | Telephone | Orthopedic Surgery | Owen Whitehead | Appointment | | 2020 | | | MD Johnny | | +--------+ + + + + | 03/10/ | Telephone | Family Medicine | Nick Yeh, | Results | | 2018 | | | DO | | +--------+ + + + + | 03/10/ | Abstract | Family Medicine | Nick Yeh, | | | 2018 | | | DO | | +--------+ + + + + | 03/04/ | Office | Family Medicine | Nick Yeh, | Encounter to | | 2019 | Visit | | DO | establish care | | | | | | (Primary Dx); | | | | | | Preventative health | | | | | | care; Colon cancer | | | | | | screening; Prostate | | | | | | cancer screening; | | | | | | Need for hepatitis C | | | | | | screening test; | | | | | | Need for | | | | | | vaccination; Need | | | | | | for shingles vaccine | +--------+ + + + + | 03/02/ | Abstract | Family Medicine | Ruslan, | | | 2019 | | | MD [place] | | +--------+ + + + + | 02/26/ | Telephone | Orthopedic Surgery | Owen Whitehead | Other (MRI ORDERS) | | 2019 | | | MD Johnny | | +--------+ + + + + | 02/25/ | Office | Orthopedic Surgery | Owen Whitehead | Localized | | 2018 | Visit | | MD Johnny | osteoarthritis of | | | | | | left knee (Primary | | | | | | Dx); Mechanical knee | | | | | | pain, left | +--------+ + + + + from Last 3 Months Immunizations + + + + | Name | Administration Dates | Next Due | + + + + | DTP (PED) | 08/09/1964 | | + + + + | TD PF (2 LF TETANUS) | 06/13/1971 | | | (ADOL/ADULT) | | | + + + + | TDAP, (ADOL/ADULT) | 03/04/2019 | | + + + + | TYPHOID, VICPS | 08/08/1976, 07/08/1973, 06/11/1972, | | | | 09/06/1970, 08/02/1970 | | + + + + Family History + + +------+ + | Medical History | Relation | Name | Comments | + + +------+ + | Cancer | Maternal | | | | | Grandfath | | | | | er | | | + + +------+ + + +------+--------+ + | Relation | Name | Status | Comments | + +------+--------+ + | Maternal Grandfather | | | | + +------+--------+ + Social History + +-------+ +--------+------+ | [...] recent travel history available. | + + Last Filed Vital Signs + + + + + | Vital Sign | Reading | Time Taken | Comments | + + + + + | Blood Pressure | 108/70 | 03/04/2019 1:58 PM | | | | | PST | | + + + + + | Pulse | 50 | 03/04/2019 1:58 PM | | | | | PST | | + + + + + | Temperature | 36.8 C (98.2 F) | 11/14/2017 8:29 AM | | | | | PDT | | + + + + + | Respiratory Rate | 16 | 11/14/2017 8:29 AM | | | | | PDT | | + + + + + | Oxygen Saturation | 97% [...] | | + + + + + Plan of Treatment + + + + + | Health Maintenance | Due Date | Last Done | Comments | + + + + + | Hepatitis C | | | | | Screening | 1 | | | + + + + + | Colorectal Cancer | | | | | Screening | 1 | | | | (Colonoscopy) | | | | + + + + + | Vaccine: Zoster (1 | | | | | of 2) | 1 | | | + + + + + | Vaccine: Influenza | | | | | (#1) | 9 | | | + + + + + | Vaccine: | | 03/04/2019, 06/13/1971, | | | Dtap/Tdap/Td (4 - | 9 | 08/09/1964 | | | Td) | | | | + + + + + Implants + +------+--------+ +--------+--------+--------+ | Implanted | Type | Area | Manufacture | Device | Shelf | Model | | | | | r | | Expira | / | | | | | | Identi | tion | Serial | | | | | | fier | Date | / Lot | + +------+--------+ +--------+--------+--------+ | Algrft Dbm Dbx 05.0cc Fd - | | N/A: | MTF - | | 06/13/ | [id number] | | [id number]: | | Spine | SYNTHES - | | 2019 | | | Qty: 1 on 11/12/2017 by | | Cervic | MTFS | | | /[id number] | | Nghia White MD | | al | | | | [id number] | | | | | | | | [id number] | | | | | | | | / | + +------+--------+ +--------+--------+--------+ | Spacer Cc Acf Lordotic 8mm | | N/A: | MUSCULOSKEL | | 07/26/ | [id number] | | Adv - | | Spine | ETAL | | 2020 | | | [id number]: | | Cervic | TRANSPLA - | | | /[id number] | | Qty: 1 on 11/12/2017 by | | al | MUSC | | | [id number] | | Nghia White MD | | | | | | 088 / | + +------+--------+ +--------+--------+--------+ | Spacer Cc Acf Lordotic 6mm | | N/A: | MUSCULOSKEL | | 07/04/ | [id number] | | Adv - | | Spine | ETAL | | 2019 | | | [id number]: Qty: | | Cervic | TRANSPLA - | | | /[id number] | | 1 on 11/12/2017 by Cindy, | | al | MUSC | | | [id number] | | MD Nghia | | | | | | 24 / | + +------+--------+ +--------+--------+--------+ | Spacer Cc Acf Lordotic 8mm | | N/A: | MUSCULOSKEL | | 07/26/ | [id number] | | Adv - | | Spine | ETAL | | 2020 | | | [id number]: | | Cervic | TRANSPLA - | | | /[id number] | | Qty: 1 on 11/12/2017 by | | yissel | [facility] | | | [id number] | | Nghia White MD | | | | | | 087 / | + +------+--------+ +--------+--------+--------+ | Screw F/A Slf-Tp Prov | | N/A: | GLOBUS | | | 150.03 | | 4.2x16mm - | | Spine | MEDICAL - | | | 6 / / | | [id number]: Qty: 4 on | | Cervic | GLBU | | | | | 11/12/2017 by Cindy, | | yissel | | | | | | MD Nghia | | | | | | | + +------+--------+ +--------+--------+--------+ | Screw F/A Slf-Tp Prov | | N/A: | GLOBUS | | | 150.03 | | 4.2x18mm - | | Spine | MEDICAL - | | | 8 / / | | [id number]: Qty: 4 on | | Cervic | GLBU | | | | | 11/12/2017 by Cindy, | | yissle | | | | | | MD Nghia | | | | | | | + +------+--------+ +--------+--------+--------+ | Plate Cerv Ant Prov 3lvl 54mm | | N/A: | GLOBUS | | | 150.35 | | - [id number]: Qty: 1 | | Spine | MEDICAL - | | | 4 / / | | on 11/12/2017 by Cindy, | | Cervic | GLBU | | | | | MD Nghia | | al | | | | | + +------+--------+ +--------+--------+--------+ Procedures + +--------+ + + + | [...] section. | + +--------+ + + + | CBC WITH | Routin | 03/09/2019 | | Results for this | | DIFFERENTIAL | e | | | procedure are in the | | | | | | results section. | + +--------+ + + + | LIPID PANEL | Routin | 03/09/2019 | | Results for this | | | e | | | procedure are in the | | | | | | results section. | + +--------+ + + + | COMPREHENSIVE | Routin | 03/09/2019 | | Results for this | | METABOLIC PANEL | e | | | procedure are in the | | | | | | results section. | + +--------+ + + + | EXTERNAL LAB: CBC | Routin | 03/09/2019 | | Results for this | | | e | | | procedure are in the | | | | | | results section. | + +--------+ + + + | EXTERNAL LAB: | Routin | 03/09/2019 | | Results for this | | GLUCOSE | e | | | procedure are in the | | | | | | results section. | + +--------+ + + + | EXTERNAL LAB: PSA | Routin | 03/09/2019 | | Results for this | | | e | | | procedure are in the | | | | | | results section. | + +--------+ + + + | EXTERNAL LAB: ALT | Routin | 03/09/2019 | | Results for this | | | e | | | procedure are in the | | | | | | results section. | + +--------+ + + + | EXTERNAL LAB: AST | Routin | 03/09/2019 | | Results for this | | | e | | | procedure are in the | | | | | | results section. | + +--------+ + + + | EXTERNAL LAB: | Routin | 03/09/2019 | | Results for this | | ALKALINE PHOSPHATASE | e | | | procedure are in the | | | | | | results section. | + +--------+ + + + | EXTERNAL LAB: | Routin | 03/09/2019 | | Results for this | | BILIRUBIN, TOTAL | e | | | procedure are in the | | | | | | results section. | + +--------+ + + + | EXTERNAL LAB: | Routin | 03/09/2019 | | Results for this | | ALBUMIN | e | | | procedure are in the | | | | | | results section. | + +--------+ + + + | EXTERNAL LAB: | Routin | 03/09/2019 | | Results for this | | PROTEIN, TOTAL | e | | | procedure are in the | | | | | | results section. | + +--------+ + + + | EXTERNAL LAB: | Routin | 03/09/2019 | | Results for this | | CALCIUM | e | | | procedure are in the | | | | | | results section. | + +--------+ + + + | EXTERNAL LAB: CARBON | Routin | 03/09/2019 | | Results for this | | DIOXIDE | e | | | procedure are in the | | | | | | results section. | + +--------+ + + + | EXTERNAL LAB: | Routin | 03/09/2019 | | Results for this | | CHLORIDE | e | | | procedure are in the | | | | | | results section. | + +--------+ + + + | EXTERNAL LAB: | Routin | 03/09/2019 | | Results for this | | POTASSIUM | e | | | procedure are in the | | | | | | results section. | + +--------+ + + + | EXTERNAL LAB: SODIUM | Routin | 03/09/2019 | | Results for this | | | e | | | procedure are in the | | | | | | results section. | + +--------+ + + + | EXTERNAL LAB: | Routin | 03/09/2019 | | Results for this | | TRIGLYCERIDES | e | | | procedure are in the | | | | | | results section. | + +--------+ + + + | EXTERNAL LAB: | Routin | 03/09/2019 | | Results for this | | CHOLESTEROL, HDL | e | | | procedure are in the | | | | | | results section. | + +--------+ + + + | EXTERNAL LAB: | Routin | 03/09/2019 | | Results for this | | CHOLESTEROL, TOTAL | e | | | procedure are in the | | | | | | results section. | + +--------+ + + + | EXTERNAL LAB: | Routin | 03/09/2019 | | Results for this | | CHOLESTEROL, LDL | e | | | procedure are in the | | | | | | results section. | + +--------+ + + + | EXTERNAL LAB: | Routin | 03/09/2019 | | Results for this | | CREATININE | e | | | procedure are in the | | | | | | results section. | + +--------+ + + + | MRI KNEE LEFT WO | Routin | 03/06/2019 | | Results for this | | CONTRAST | e | 12:00 AM | | procedure are in the | | | | PST | | results section. | + +--------+ + + + | IMAGING REPORT - | | 03/06/2019 | | Results for this | | EXTERNAL SCAN | | 12:00 AM | | procedure are in the | | | | PST | | results section. | + +--------+ + + + from Last 3 Months Results External Lab: Glucose (03/09/2019) + +-------+ + + + | Component | Value | Ref Range | Performed | Pathologist | | | | | At | Signature | + +-------+ + + + | Glucose, | 85 | 70 - 100 | | | | External | | | | | + +-------+ + + + External Lab: PSA (03/09/2019) + +-------+ + + + | Component | Value | Ref Range | Performed | Pathologist | | | | | At | Signature | + +-------+ + + + | PSA, | 1.67 | 0 - 4 | | | | External | | | | | + +-------+ + + + External Lab: ALT (03/09/2019) + +-------+ + + + | Component | Value | Ref Range | Performed | Pathologist | | | | | At | Signature | + +-------+ + + + | ALT, | 25 | 7 - 52 | | | | External | | | | | + +-------+ + + + External Lab: AST (03/09/2019) + +-------+ + + + | Component | Value | Ref Range | Performed | Pathologist | | | | | At | Signature | + +-------+ + + + | AST, | 28 | 13 - 39 | | | | External | | | | | + +-------+ + + + External Lab: Alkaline Phosphatase (03/09/2019) + +-------+ + + + | Component | Value | Ref Range | Performed | Pathologist | | | | | At | Signature | + +-------+ + + + | ALP, | 53 | 31 - 120 | | | | External | | | | | + +-------+ + + + External Lab: Bilirubin, Total (03/09/2019) + +-------+ + + + | Component | Value | Ref Range | Performed | Pathologist | | | | | At | Signature | + +-------+ + + + | Bilirubin, | 0.4 | 0 - 1.2 | | | | Total, | | | | | | External | | | | | + +-------+ + + + External Lab: Albumin (03/09/2019) + +-------+ + + + | Component | Value | Ref Range | Performed | Pathologist | | | | | At | Signature | + +-------+ + + + | Albumin, | 4.3 | 3.5 - 5 | | | | External | | | | | + +-------+ + + + External Lab: Protein, Total (03/09/2019) + +-------+ + + + | Component | Value | Ref Range | Performed | Pathologist | | | | | At | Signature | + +-------+ + + + | Protein, | 6.5 | 6 - 8.3 | | | | Total, | | | | | | External | | | | | + +-------+ + + + External Lab: Calcium (03/09/2019) + +-------+ + + + | Component | Value | Ref Range | Performed | Pathologist | | | | | At | Signature | + +-------+ + + + | Calcium, | 9.5 | 8.5 - 10.3 | | | | External | | | | | + +-------+ + + + External Lab: Carbon Dioxide (03/09/2019) + +-------+ + + + | Component | Value | Ref Range | Performed | Pathologist | | | | | At | Signature | + +-------+ + + + | Carbon | 30 | 19 - 31 | | | | Dioxide, | | | | | | External | | | | | + +-------+ + + + External Lab: Chloride (03/09/2019) + +-------+ + + + | Component | Value | Ref Range | Performed | Pathologist | | | | | At | Signature | + +-------+ + + + | Chloride, | 102 | 95 - 112 | | | | External | | | | | + +-------+ + + + External Lab: Potassium (03/09/2019) + +-------+ + + + | Component | Value | Ref Range | Performed | Pathologist | | | | | At | Signature | + +-------+ + + + | Potassium, | 4.2 | 3.6 - 5.1 | | | | External | | | | | + +-------+ + + + External Lab: Sodium (03/09/2019) + +-------+ + + + | Component | Value | Ref Range | Performed | Pathologist | | | | | At | Signature | + +-------+ + + + | Sodium, | 140 | 132 - 143 | | | | External | | | | | + +-------+ + + + External Lab: CBC (03/09/2019) + +---------+ + + + | Component | Value | Ref Range | Performed | Pathologist | | | | | At | Signature | + +---------+ + + + | WBC, | 6.8 | 4.5 - 11 | | | | External | | | | | + +---------+ + + + | HGB, | 15.5 | 13.5 - 18 | | | | External | | | | | + +---------+ + + + | HCT, | 46.7 | 41 - 50 | | | | External | | | | | + +---------+ + + + | PLT, | 291 | 140 - 440 | | | | External | | | | | + +---------+ + + + | Neutrophils | 53.7 | 39 - 80 | | | | %, | | | | | | External | | | | | + +---------+ + + + | Lymphocytes | 27.7 | 24 - 44 | | | | %, | | | | | | External | | | | | + +---------+ + + + | Monocytes | 8.9 | 0 - 12 | | | | %, External | | | | | + +---------+ + + + | Eosinophils | 8.7 (A) | 0 - 6 | | | | %, | | | | | | External | | | | | + +---------+ + + + | RBC, | 5.25 | 4.3 - 5.7 | | | | External | | | | | + +---------+ + + + | MCV, | 89 | 81 - 99 | | | | External | | | | | + +---------+ + + + External Lab: Triglycerides (03/09/2019) + +-------+ + + + | Component | Value | Ref Range | Performed | Pathologist | | | | | At | Signature | + +-------+ + + + | Triglycerid | 118 | 30 - 150 | | | | es, | | | | | | External | | | | | + +-------+ + + + + + | Specimen | + + | Blood | + + External Lab: Cholesterol, HDL (03/09/2019) + +-------+ + + + | Component | Value | Ref Range | Performed | Pathologist | | | | | At | Signature | + +-------+ + + + | HDL | 53.2 | mg/dl | | | | Cholesterol | | | | | | , External | | | | | + +-------+ + + + + + | Specimen | + + | Blood | + + External Lab: Cholesterol, Total (03/09/2019) + +-------+ + + + | Component | Value | Ref Range | Performed | Pathologist | | | | | At | Signature | + +-------+ + + + | Cholesterol | 230 | mg/dl | | | | , Total, | | | | | | External | | | | | + +-------+ + + + + + | Specimen | + + | Blood | + + External Lab: Cholesterol, LDL (03/09/2019) + +-------+ + + + | Component | Value | Ref Range | Performed | Pathologist | | | | | At | Signature | + +-------+ + + + | LDL | 153 | | | | | Cholesterol | | | | | | , Direct, | | | | | | External | | | | | + +-------+ + + + + + | Specimen | + + | Blood | + + External Lab: Creatinine (03/09/2019) + +-------+ + + + | Component | Value | Ref Range | Performed | Pathologist | | | | | At | Signature | + +-------+ + + + | Creatinine, | 0.89 | 0.7 - 1.33 | | | | External | | | | | + +-------+ + + + + + | Specimen | + + | Blood | + + LABS - EXTERNAL SCAN (03/09/2019 12:00 AM PST) + + + | Narrative | Performed At | + + + | Ordered by an | | | unspecified provider. | | + + + Lipid Panel (03/09/2019) + +-------+ + + + | Component | Value | Ref Range | Performed | Pathologist | | | | | At | Signature | + +-------+ + + + | Chol/HDL | 4.3 | | | | | Ratio | | | | | + +-------+ + + + | VLDL | 24 | 4 - 40 | | | | Cholesterol | | | | | | Irvin | | | | | + +-------+ + + + | Non HDL | 177 | | | | | Chol. | | | | | | (LDL+VLDL) | | | | | + +-------+ + + + + + | Specimen | + + | Blood | + + CBC with Differential (03/09/2019) + +-------+ + + + | Component | Value | Ref Range | Performed | Pathologist | | | | | At | Signature | + +-------+ + + + | MCH | 30.0 | 27.0 - 33.0 pg | | | + +-------+ + + + | MCHC | 33.0 | 30.0 - 36.0 | | | | | | g/dL | | | + +-------+ + + + | % Basophils | 1.0 | 0.0 - 2.0 % | | | + +-------+ + + + + + | Specimen | + + | Blood | + + Comprehensive Metabolic Panel (03/09/2019) + +-------+ + + + | Component | Value | Ref Range | Performed | Pathologist | | | | | At | Signature | + +-------+ + + + | Anion Gap | 12 | 7 - 21 mmol/L | | | + +-------+ + + + | Bun/Creatin | 19.1 | 6.0 - 28.6 | | | | ine | | | | | + +-------+ + + + | Globulin | 2.2 | 1.8 - 3.5 | | | + +-------+ + + + + + | Specimen | + + | Blood | + + IMAGING REPORT - EXTERNAL SCAN (03/06/2019 12:00 AM PST) + + + | Narrative | Performed At | + + + | Ordered by an | | | unspecified provider. | | + + + MRI Knee Left wo Contrast (03/06/2019 12:00 [...] | | | + +---------+ + + from Last 3 Months Insurance + +--------+ +--------+ +---------+------+ | Payer | Benefi | Subscriber | Effect | Phone | Address | Type | | | t Plan | ID | anita | | | | | | / | | Dates | | | | | | Group | | | | | | + +--------+ +--------+ +---------+------+ | [facility] | PHP | [id number] | 03/18/19 | [phone] | | PPO | | PLAN | PEBB | | 18-Pre | 5 | | | | | STATEW | | sent | | | | | | MEMO | | | | | | + +--------+ +--------+ +---------+------+ + +--------+ +--------+ + + | Guarantor Name | Accoun | Relation to | Date | Phone | Billing Address | | | t Type | Patient | of | | | | | | | | | | + +--------+ +--------+ + + | Joel Canela | Person | Self [birth year] | [address] | | | al/Fam | | 1961 | [phone] | [address] [place] | | | adithya | | | [address] (Home) | [phone] | + +--------+ +--------+ + + Advance Directives + + + + + | Type | Date Recorded | Patient | Explanation | | | | Intelligence Intern | | + + + + + | Power of | | | | | Shale Planer Operator | | | | + + + + + | Advance | | | | | Directive | | | | + + + + +
--- OUTSIDE RECORDS SUMMARY | ~2019-04-01 | XMS | Encounter Summary ---
Demographics + + + | Address | [address] | | | [place] [address] | + + + | Home Phone | | + + + | Preferred Language | Unknown | + + + | Marital Status | | + + + | Protestant Affiliation | Unknown | + + + | Race | Unknown | + + + | Ethnic Group | Unknown | + + + Author + + + | Author | [facility] | | | and [place] | + + + | Organization | [facility] | | | and [place] | + + + | Address | Unknown | + + + | Phone | Unavailable | + + + Support + + + + + | Name | Relationship | Address | Phone | + + + + + | Radha Dowling | ECON | [address] | | | | | [place] | | | | | [address] | | + + + + + Care Team Providers + +------+ + | Care Die Storage Clerk Name | Role | Phone | [...] | | | | [place] | [phone] | | | | | [phone] | | | | | | [phone] | | | +--------+ + + + [...] + +--------+ + + + | CT CERVICAL SPINE WO | Routin | 11/11/2017 | | Results for this | | CONTRAST | e | 10:02 PM | | procedure are in the | | | | PDT | | results section. | + +--------+ + + + documented in this encounter Results CT Cervical Spine wo Contrast (11/11/2017 10:02 PM PDT) + + | Specimen | + + | | + + + + + | Narrative | Performed At | + + + | This is a non-reportable procedure without a radiologist report and | | | is used for image storage only | | + + + + + | Procedure Note | + + | Alfredo Wall - 10/29/2018 11:15 AM PDT This is [...]
--- OUTSIDE RECORDS SUMMARY | ~2019-04-01 | XMS | Encounter Summary ---
Demographics + + + | Address | [address] | | | [place] [address] | + + + | Home Phone | | + + + | Preferred Language | Unknown | + + + | Marital Status | | + + + | Congregational Affiliation | Unknown | + + + | Race | Unknown | + + + | Ethnic Group | Unknown | + + + Author + + + | Author | [facility] | | | and [place] | + + + | Organization | [facility] | | | and [place] | + + + | Address | Unknown | + + + | Phone | Unavailable | + + + Support + + + + + | Name | Relationship | Address | Phone | + + + + + | Radha Dowling | ECON | [address] | | | | | [place] | | | | | [address] | | + + + + + Care Team Providers + +------+ + | Care Ditcher Name | Role | Phone | + +------+ + | Nena Diop | PCP | | | PA | | | + +------+ + Reason for Referral Evaluate & Treat (Routine) +--------+ + + + + + | Status | Reason | Specialty | Diagnoses / | Referred By | Referred To | | | | | Procedures | Contact | Contact | +--------+ + + + + + | Closed | Specialty | Physical | Diagnoses | [place], | [facility] | | | Services | Therapy | Primary | [place] | [facility] | | | Required | | osteoarthrit | Johnny, | PHYSICAL | | | | | is of left | [address] | | | | | knee | [address] | [place] | | | | | | [place], | [place], [place] | | | | | | [place] | [address] | | | | | | [address] | Phone: | | | | | | Phone: | [phone] | | | | | | [phone] | Fax: | | | | | | Fax: | [phone] | | | | | | [phone] | | +--------+ + + + + + Reason for Visit + + + | Reason | Comments | + + + | New Patient | | + + + | Knee [...] | | | | | | | [address] | | | | | | | Phone: | | | | | | | [phone] | | | | | | | Fax: | | | | | | | [phone] | + +--------+ + + + + Encounter Details +--------+---------+ + + + | Date | Type | Department | Care Team | Description | +--------+---------+ + + + | 10/28/ | Office | [facility] | Owen Whitehead | Primary | | 2019 | Visit | ORTHOPEDIC SURGERY | MD [address] | osteoarthritis of | | | | [address] [facility] | [address] | left knee (Primary | | | | [place], [place] | [place] [address] | Dx); Primary | | | | [address] | [phone] | osteoarthritis of | | | | [phone] | | right knee | +--------+---------+ + + + Social History [...] + + | Weight | 97.5 kg (215 lb) | 10/28/2018 8:52 AM | | | | | PDT | | + + + + + | Height | 188 cm (6' 2") | 10/28/2018 8:52 AM | | | | | PDT | | + + + + + | Body Mass Index | 27.6 | 10/28/2018 8:52 AM | | | | | PDT | | + + + + + documented in this encounter Patient Instructions Patient Instructions Owen Whitehead MD - 10/28/2018 9:00 AM PDTFormatting of t his note might be different [...] on managing symptoms. Tr eatment may include: Gxdi-tpi-nverywn or prescription medicines taken by mouth to [...] get worse New symptoms Date Last Reviewed: 05/26/201519996833-6382 [employer]. [address] [place] [address]. All righ ts reserved. This information is not intended as a substitute for professional medical care. Always follow your healthcare professional's instructions. documented in this encounter Progress Notes Owen Whitehead MD - 10/28/2018 9:00 AM PDTFormatting of this note might be dif ferent from the original. [facility] HISTORY AND PHYSICAL EXAMINATION Pt. Name/Age/: Joel Canela 57 y.o. 1960 Primary Care Physician: Nena Diop Chief Complaint/Reason for Visit: New Patient and Knee Pain (Bilateral) History of Present Illness: The patient is a pleasant 57 y.o. male who presents with bilateral knee pain with the left being worse than the right. He occasionally has catching in his left knee. He additionally has swelling and pain. He thinks it may have been worsened by a fall off of the horse last year. He fell hard after a horse took off from underneath him. He broke his neck during t he fall. He noticed that his left knee pain worsened significantly after the fall. He has been doing ice and Advil which does help significantly with his pain. His pain is a 3 out o f 10 at baseline and a 6 out of 10 at its worst. He feels like his pain has been the same o lei time. He is able to do his normal daily activities. He denies any tobacco use. Of note, he denies any significant previous injuries to the knee. He states that he was se en a couple of years ago and was diagnosed with osteoarthritis. Past Medical History: History reviewed. No pertinent past medical history. Past Surgical History: Procedure Laterality Date CERVICAL FUSION 11/11/2017 Allergies: Allergies Allergen Reactions Hydromorphone Other (See Comments) Current Medications: No current outpatient medications on file. No current facility-administered medications for this visit. Family History: History reviewed. No pertinent family history. Social History: Social History Socioeconomic History Marital status: Spouse name: Not on file Number of children: Not on file Years of education: Not on file Highest education level: Not on file Social Needs Financial resource strain: Not on file Food insecurity - worry: Not on file Food insecurity - inability: Not on file Transportation needs - medical: Not on file Transportation needs - non-medical: Not on file Occupational History Not on file Tobacco Use Smoking status: Never Smoker Smokeless tobacco: Never Used Substance and Sexual Activity Alcohol use: Yes Comment: Socially Drug use: Never Sexual activity: Not on file Other Topics Concern Not on file Social History Narrative Not on file Review of Systems All of these are negative unless otherwise marked Eyes: [] Double vision [x] Glasses/contacts [] Failing vision Respiratory: [] Asthma/Wheezing [] Pneumonia [] Night sweats [] Shortness of breath [] Chronic cough [] Coughing up blood [] Exposure to tuberculosis Cardiovascular: [] Heart Problems [] Hypertension [] Heart murmur [] Palpitations [] Rheumatic fever [] Phlebitis [] Chest pain [] Ankle swelling [] Leg cramps [] Racin g heart [] Skipping beats [] Blood clots Urinary Tract: [] Painful urination [] Kidney Stones [] Any urine leakage [] Weak urine stream [] Night urination [] Urine infections [] Bedwetting [] Blood in urine Ear/Nose/Throat: [] Frequent Colds [] Sinus Disease [] Nose obstruction [] Sneezing Spells [] Change in taste [] Artificial teeth [] Ears ringing [] Ear pain [] Hearing loss [] Teeth problems [] Hoarseness [] Neck swelling [] Sore throat [] Congestion [] Nosebleeds [] Nasal allergies Gastrointestinal: [] Abdominal pain [] Heartburn [] Blood from rectum [] Colitis [] Gallbladder problems [] Troubl e swallowing [] Bloated stomach [] Change in stools [] Vomiting blood [] Nausea [] Hemorrhoids [] Jaundice [ ] Hepatitis [] Diarrhea [] Constipation [] Diverticulitis Musculoskeletal: [] Physical handicaps [x] Back or shoulder pain []Rheumatoid disease [] Osteoarthritis [x] Joint pain [x] Joint swelling []Gout [] Leg cramps at night Skin: [] Skin rashes [] Itching/Burning [] Skin bruises easil y [] Artificial tanning [] Skin cancer [] Hair loss [] Changes in moles Psychiatric: [] Depression [] Suicidal thoughts [] Sleep pattern changes [] Appetite changes [] Recent counseling [] Nervousness/anxiety [] Physical violence [] Marital problems Neurological: [] Headaches [] Seizures [] Stroke/TIA [] Faintness [] Tremors [x] Numbness [] Dizziness [] Changes in handwriting [] Memory loss [x] Shooting pains Endocrine: [] Thyroid [] Diabetes Systemic: []Weight loss/gain (over 10 lbs) []Fever/chills []Fatigue [] Sleeping Difficulties [] Speech change [] Voice change Admission Weight: Weight: 97.5 kg (215 lb) BMI: Body mass index is 27.6 kg/m. Physical Examination: Ht 1.88 m (6' 2") | Wt 97.5 kg (215 lb) | BMI 27.60 kg/m General: Alert, oriented, no acute distress HEENT: Normocephalic, atraumatic Cardiovascular: Regular rate and rhythm Respiratory: Breathing normally at a regular rate Ortho Exam Bilateral Knee Exam Tenderness: Nontender over the knees Right Knee Passive Range of Motion: 0/140 Left Knee Passive Range of Motion: 0/130 (pain at deep flexion) Right Knee Left Knee Anterior Drawer Negative Negative Posterior Drawer Negative Negative Noreen's Test Negative Negative Varus Stress Negative Negative Valgus Stress Negative Negative Sofía's Negative Negative Sensation intact to light touch in the first dorsal webspace, medial, lateral, dorsal and p lantar foot. Dorsalis pedis and posterior tibial pulses 2+. Able to plantarflex, dorsiflex, uriel and invert the ankle. Diagnostic Studies: Imaging 4 views of the bilateral knees obtained today demonstrate no fractures or dislocations. Th ere is mild medial joint space narrowing in the right knee and moderate to severe joint spac e narrowing in the left knee. Minimal osteophyte formation. Labs- No results found for: NA, K, CL, CO2, ANIONGAP, GLU, BUN, CREA, GFRNONAA, CALCIUM, ALBUMIN, BILITOT, TOTALPROTEIN, AST, ALT, ALKPHOS, WBC, HGB, HCT, MCV, LABPLAT, PLT, ESR, CRP, LIPAS E, AMYLASE, PT, INR Assessment and Plan: 1. Primary osteoarthritis of left knee XR Knee Left 1 - 2 Vw 2. Primary osteoarthritis of right knee XR Knee Right 4 + Vw The patient is a pleasant 57 y.o. male who presents with bilateral knee osteoarthrosis with the left being worse than the right. Treatment options were discussed with the patient incl uding non-operative treatment modalities. Considering the nature of the patient's condition, decision was made to proceed with recommending vzan-xki-gzgubgc anti-inflammatory use and p hysical therapy. He would like to do physical therapy close to home. We will work on alvaro zavala that. I recommended that he take ibuprofen 400 mg 3 times daily for the next 3 to 4 we eks. I recommended he take that with food. He denies any history of stomach or kidney prob lems. I will see him back in 2 months and we will reevaluate him at that time. Follow-up: Return in about 2 months (around 12/28/2018). with no x-ray Portions of this report were transcribed using voice recognition software. Every effort wa s made to ensure accuracy; however, inadvertent computerized electric well logging operator errors may be pre sent. I appreciate the opportunity to help with the management of this patient. Owen Whitehead MD documented in this encounter Plan of Treatment + + +--------+ + + | Name | Type | Priori | Associated Diagnoses | Order Schedule | | | | ty | | | + + +--------+ + + | [facility] | Outpatient | Routin | Primary | Ordered: 10/28/2018 | | Hospital Physical | Referral | e | osteoarthritis of | | | Therapy, External - | | | left knee | | | AMB Referral | | | | | + + +--------+ + + documented as of this encounter Results XR Knee Left 1 - 2 Vw (10/28/2018 8:47 AM PDT) + + | Specimen | + + | | + + + + + | Narrative | Performed At | + + + | XR KNEE LEFT 1 - 2 VW 10/28/2018 8:47 AM HISTORY: BILATERAL KNEE | [facility] | | PAIN. COMPARISON: None. FINDINGS: The right knee shows mild | | | medial compartment joint space loss. Bone mineralization is normal. | | | There is no joint effusion. Calcium is observed at the attachment | | | site of the patellar tendon. The left knee demonstrates moderate | | | to severe medial compartment joint space loss. There is slight | | | lateral shifting of the tibia relative to the femur. There are tiny | | | osteophytes of the medial and patellofemoral compartments. Bone | | | mineralization is normal. A bone island is in the proximal tibia | | | medially. There is no joint effusion. Soft tissues are unremarkable. | | | IMPRESSION - Mild degenerative changes of right knee. | | | Moderate to severe degenerative changes of left knee. Dictated and | | | Signed by: Parviz Mclean MD Electronically signed: 10/28/2018 9:47 | | | AM | | + + + + + | Procedure Note | + + | [facility], Rad Results In - 10/28/2018 9:51 AM PDT XR KNEE LEFT 1 - 2 VW 10/28/2018 8:47 AM | | | | HISTORY: BILATERAL KNEE PAIN. | | | | COMPARISON: None. | | | | FINDINGS: | | The right knee shows mild medial compartment joint space loss. Bone | | mineralization is normal. There is no joint effusion. Calcium is observed at the | | attachment site of the patellar tendon. | | | | The left knee demonstrates moderate to severe medial compartment joint space | | loss. There is slight lateral shifting of the tibia relative to the femur. There | | are tiny osteophytes of the medial and patellofemoral compartments. Bone | | mineralization is normal. A bone island is in the proximal tibia medially. There | | is no joint effusion. Soft tissues are unremarkable. | | | | IMPRESSION - | | Mild degenerative changes of right knee. | | | | Moderate to severe degenerative changes of left knee. | | | | Dictated and Signed by: Parviz Mclean MD | | Electronically signed: 10/28/2018 9:47 AM | + + + +---------+ + + | Performing | Address | City/State/Zipcode | Phone Number | | Organization | | | | + +---------+ + + | [facility] | | | | + +---------+ + + XR Knee Right 4 + Vw (10/28/2018 8:47 AM PDT) + + | Specimen | + + | | + + + + + | Narrative | Performed At | + + + | XR KNEE RIGHT 4 + VW 10/28/2018 8:47 AM HISTORY: Right Knee pain. | [facility] | | COMPARISON: None. FINDINGS: The right knee shows mild medial | | | compartment joint space loss. Bone mineralization is normal. There | | | is no joint effusion. Calcium is observed at the attachment site of | | | the patellar tendon. The left knee demonstrates moderate to severe | | | medial compartment joint space loss. There is slight lateral | | | shifting of the tibia relative to the femur. There are tiny | | | osteophytes of the medial and patellofemoral compartments. Bone | | | mineralization is normal. A bone island is in the proximal tibia | | | medially. There is no joint effusion. Soft tissues are unremarkable. | | | IMPRESSION - Mild degenerative changes of right knee. | | | Moderate to severe degenerative changes of left knee. Dictated and | | | Signed by: Parviz Mclean MD Electronically signed: 10/28/2018 9:47 | | | AM | | + + + + + | Procedure Note | + + | [facility], Rad Results In - 10/28/2018 9:50 AM PDT XR KNEE RIGHT 4 + VW 10/28/2018 8:47 AM | | | | HISTORY: Right Knee pain. | | | | COMPARISON: None. | | | | FINDINGS: | | The right knee shows mild medial compartment joint space loss. Bone | | mineralization is normal. There is no joint effusion. Calcium is observed at the | | attachment site of the patellar tendon. | | | | The left knee demonstrates moderate to severe medial compartment joint space | | loss. There is slight lateral shifting of the tibia relative to the femur. There | | are tiny osteophytes of the medial and patellofemoral compartments. Bone | | mineralization is normal. A bone island is in the proximal tibia medially. There | | is no joint effusion. Soft tissues are unremarkable. | | | | IMPRESSION - | | Mild degenerative changes of right knee. | | | | Moderate to severe degenerative changes of left knee. | | | | Dictated and Signed by: Parviz Mclean MD | | Electronically signed: 10/28/2018 9:47 AM | + + + +---------+ + + [...] lower | | leg | + + | Primary osteoarthritis of right knee Primary localized osteoarthrosis, lower leg | + + documented in this encounter
--- OUTSIDE RECORDS SUMMARY | ~2019-04-01 | XMS | Encounter Summary ---
Demographics + + + | Address | [address] | | | [place] [address] | + + + | Home Phone | | + + + | Preferred Language | Unknown | + + + | Marital Status | | + + + | Nondenominational Affiliation | Unknown | + + + | Race | Unknown | + + + | Ethnic Group | Unknown | + + + Author + + + | Author | [facility] | | | and [place] | + + + | Organization | [facility] | | | and [place] | + + + | Address | Unknown | + + + | Phone | Unavailable | + + + Support + + + + + | Name | Relationship | Address | Phone | + + + + + | Radha Dowling | ECON | [address] | | | | | [place] | | | | | [address] | | + + + + + Care Team Providers + +------+ + | Care Dietary Assistant Name | Role | Phone | + [...] Unknown | | | | | [place] | [phone] | | | | | [address] | | | | | | [phone] | | | +--------+ + + + [...] + +--------+ + + + | XR FOREARM LEFT 2 VW | Routin | 11/11/2017 | | Results for this | | | e | 10:05 PM | | procedure are in the | | | | PDT | | results section. | + +--------+ + + + documented in this encounter Results XR Forearm Left 2 Vw (11/11/2017 10:05 PM PDT) + + | Specimen | [...]
--- OUTSIDE RECORDS SUMMARY | ~2019-04-01 | XMS | Encounter Summary ---
Demographics + + + | Address | [address] | | | [place] [address] | + + + | Home Phone | | + + + | Preferred Language | Unknown | + + + | Marital Status | | + + + | Lutheran Affiliation | Unknown | + + + | Race | Unknown | + + + | Ethnic Group | Unknown | + + + Author + + + | Author | [facility] | | | and [place] | + + + | Organization | [facility] | | | and [place] | + + + | Address | Unknown | + + + | Phone | Unavailable | + + + Support + + + + + | Name | Relationship | Address | Phone | + + + + + | Radha Dowling | ECON | [address] | | | | | [place] | | | | | [address] | | + + + + + Care Team Providers + +------+ + | Care Foreign Broadcast Specialist Name | Role | Phone | + +------+ + | Nena Diop | PCP | | | PA | | | + +------+ + Encounter Details +--------+ + + + + | Date | Type | Department | Care Team | Description | +--------+ + + + + | 10/28/ | Hospital | [facility] | Owen Whitehead | Pain in both knees, | | 2019 | Encounter | [facility] [address] [facility] | [address] | unspecified | | | | [address] [place] | [address] [place] | chronicity | | | | [place], [place] | [place] [address] | | | | | [address] | [phone] | | | | | [phone] | | | +--------+ + + + [...] 18 | 9 | | bed (medical practice manager) | needed. | | | | | [...] + +--------+ + + + | XR KNEE RIGHT 4 + VW | Routin | 10/28/2018 | Pain in both | Results for this | | | e | 8:47 AM | knees, unspecified | procedure are in the | | | | PDT | chronicity | results section. | + +--------+ + + + | XR KNEE LEFT 1 - 2 | Routin | 10/28/2018 | Pain in both | Results for this | | VW | e | 8:47 AM | knees, unspecified | procedure are in the | | | | PDT | chronicity | results section. | + +--------+ + + + documented in this encounter Results IMAGING REPORT - EXTERNAL SCAN (03/06/2019 12:00 AM PST) + + + | Narrative | Performed At | + + + | Ordered by an | | | unspecified provider. | | + + + XR Knee Left 1 - 2 Vw [...] + | Diagnosis | + + | Pain in both knees, unspecified chronicity | + + documented in this encounter"
--- OUTSIDE RECORDS SUMMARY | ~2019-04-01 | XMS | Encounter Summary ---
Demographics + + + | Address | [address] | | | [place] [address] | + + + | Home Phone | | + + + | Preferred Language | Unknown | + + + | Marital Status | | + + + | Bahai Affiliation | Unknown | + + + | Race | Unknown | + + + | Ethnic Group | Unknown | + + + Author + + + | Author | [facility] | | | and [place] | + + + | Organization | [facility] | | | and [place] | + + + | Address | Unknown | + + + | Phone | Unavailable | + + + Support + + + + + | Name | Relationship | Address | Phone | + + + + + | Radha Dowling | ECON | [address] | | | | | [place] | | | | | [address] | | + + + + + Care Team Providers + +------+ + | Care Digital Commentator Name | Role | Phone | + +------+ + | Nena Diop | PCP | | | PA | | | + +------+ + Reason for Visit +--------+ + | Reason | Comments | +--------+ + | Other | MRI ORDERS | +--------+ + Encounter Details +--------+ + + + + | Date | Type | Department | Care Team | Description | +--------+ + + + + | 02/26/ | Telephone | [facility] | Owen Whitehead | Other (MRI ORDERS) | | 2019 | | ORTHOPEDIC SURGERY | [address] | | | | | [address] [facility] | [facility] | | | | | [place] | [place] [address] | | | | | [address] | [phone] | | | | | [phone] | | | +--------+ + + + [...]
--- OUTSIDE RECORDS SUMMARY | ~2019-04-01 | XMS | Encounter Summary ---
Demographics + + + | Address | [address] | | | [place] [address] | + + + | Home Phone [...] Author | [facility] | | | and [place] | + + + | Organization | [facility] | | | and [place] | + + + | Address | Unknown | + + + | Phone | Unavailable | + + + Support + + + + + | Name | Relationship | Address | Phone | + + + + + | Radha Dowling | ECON | [address] | | | | | [place] | | | | | [address] | | + + + + + Care Team Providers + +------+ + | Care Instructor Creeler Name | Role | Phone | + [...] + + | 11/18/ | Telephone | [facility] | Nate Rajan, | Letter (return to | | 2019 | | NEUROSURGERY [address] | GROUP FITNESS INSTRUCTOR [address] | work letter ) | | | | [address] | [address] | | | | | [place], [place] | [place] [address] | | | | | [address] | [phone] | | | | | [phone] | | | +--------+ + + + [...]
--- OUTSIDE RECORDS SUMMARY | ~2019-04-01 | XMS | Encounter Summary ---
Demographics + + + | Address | [address] | | | [place] [address] | + + + | Home Phone | | + + + | Preferred Language | Unknown | + + + | Marital Status | | + + + | Baptist Affiliation | Unknown | + + + | Race | Unknown | + + + | Ethnic Group | Unknown | + + + Author + + + | Author | [facility] | | | and [place] | + + + | Organization | [facility] | | | and [place] | + + + | Address | Unknown | + + + | Phone | Unavailable | + + + Support + + + + + | Name | Relationship | Address | Phone | + + + + + | Radha Dowling | ECON | [address] | | | | | [place] | | | | | [address] | | + + + + + Care Team Providers + +------+ + | Care Community Manager Name | Role | Phone | [...] | Services | Therapy | Primary | [place] | [facility] | | | Required | | osteoarthrit | Johnny, | PHYSICAL | | | | | is of left | MD [address] | [address]APY [address] | | | | | knee | [address] | [place] | | | | | | [place], | [place], [place] | | | | | | [place] | [address] | | | | | | [address] | Phone: | | | | | | Phone: | [phone] | | | | | | [phone] | Fax: | | | | | | Fax: | [phone] | | | | | | [phone] | | +--------+ + + + + [...] | | | | | | | [address] | | | | | | | Phone: | | | | | | | [phone] | | | | | | | Fax: | | | | | | | [phone] | + +--------+ + + + + Encounter Details +--------+---------+ + + + | Date | Type | Department | Care Team | Description | +--------+---------+ + + + | 10/28/ | Office | [facility] | Owen Whitehead | Primary | | 2019 | Visit | ORTHOPEDIC SURGERY | MD [address] | osteoarthritis of | | | | [address] [facility] | [address] | left knee (Primary | | | | [place], [place] | [place] [address] | Dx); Primary | | | | [address] | [phone] | osteoarthritis of | | | | [phone] | | right knee | +--------+---------+ + [...] on managing symptoms. Tr eatment may include: Otpn-ono-usrkznm or prescription medicines taken by mouth to [...] get worse New symptoms Date Last Reviewed: 05/26/201519997033-7496 [employer]. [address] [place] [address]. All righ ts reserved. This information is not intended as a substitute for professional medical care. Always follow your healthcare professional's instructions. documented in this encounter Progress Notes Owen Whitehead MD - 10/28/2018 9:00 AM PDTFormatting of this note might be dif ferent from the original. Located Within [facility] HISTORY AND PHYSICAL EXAMINATION Pt. [...] decision was made to proceed with recommending wqge-qzv-pucpsdn anti-inflammatory use and p hysical therapy. He [...] made to ensure accuracy; however, inadvertent computerized coupon collection clerk errors may be pre sent. I appreciate [...]
--- OUTSIDE RECORDS SUMMARY | ~2019-04-01 | XMS | Encounter Summary ---
Demographics + + + | Address | [address] | | | [place] [address] | + + + | Home Phone | | + + + | Preferred Language | Unknown | + + + | Marital Status | | + + + | Samaritan Affiliation | Unknown | + + + | Race | Unknown | + + + | Ethnic Group | Unknown | + + + Author + + + | Author | [facility] | | | and [place] | + + + | Organization | [facility] | | | and [place] | + + + | Address | Unknown | + + + | Phone | Unavailable | + + + Support + + + + + | Name | Relationship | Address | Phone | + + + + + | Radha Dowling | ECON | [address] | | | | | [place] | | | | | [address] | | + + + + + Care Team Providers + +------+ + | Care Extrusion Press Operator Name | Role | Phone | + +------+ + PCP | Unavailable | + +------+ + Encounter Details +--------+ + + + + | Date | Type | Department | Care Team | Description | +--------+ + + + + | 02/11/ | Hospital | [facility] | Conversion | Closed nondisplaced | | 2018 | Encounter | CENTER OPI XRAY | Transaction, | fracture of fourth | | | | [address] | Provider Unknown | cervical vertebra | | | | [address] [place], [place] | [phone] | with routine | | | | [address] | | healing, unspecified | | | | [phone] | Nate Rajan, | fracture | | | | | DIRECTOR OF DIAGNOSTIC IMAGING [address] | morphology, | | | | | [address] | subsequent | | | | | [place] [address] | encounter; Closed | | | | | [phone] | nondisplaced | | | | | [...] 18 | 9 | | bed (medical field representative) | needed. | | | | | [...] Performed At | + + + | [facility] CERVICAL SPINE LIMITED 2-3 VIEW 1960 [...] [facility] CERVICAL SPINE LIMITED | | 2-3 VIEW10/2/075133 2:22 PM INDICATION: C4 fracture. C7 fracture. [...]
--- OUTSIDE RECORDS SUMMARY | ~2019-04-01 | XMS | Encounter Summary ---
Demographics + + + | Address | [address] | | | [place] [address] | + + + | Home Phone | | + + + | Preferred Language | Unknown | + + + | Marital Status | | + + + | Synagogue Affiliation | Unknown | + + + | Race | Unknown | + + + | Ethnic Group | Unknown | + + + Author + + + | Author | [facility] | | | and [place] | + + + | Organization | [facility] | | | and [place] | + + + | Address | Unknown | + + + | Phone | Unavailable | + + + Support + + + + + | Name | Relationship | Address | Phone | + + + + + | Radha Dowling | ECON | [address] | | | | | [place] | | | | | [address] | | + + + + + Care Team Providers + +------+ + | Care Ophthalmic Surgical Assistant Name | Role | Phone | + +------+ + PCP | Unavailable | + +------+ + Encounter Details +--------+ + + + + | Date | Type | Department | Care Team | Description | +--------+ + + + + | 12/26/ | Hospital | [facility] | Conversion | S/P cervical spinal | | 2018 | Encounter | [facility] | Transaction, | fusion | | | | [address] | Provider Unknown | | | | | [address] [place], [place] | [phone] | | | | | [address] | | | | | | [phone] | Nghia White MD | | | | | | [address] [facility] [address] | | | | | | FLOOR [place], [place] | | | | | | [address] | | | | | | [phone] | | | | | | | | +--------+ + + + [...] 18 | 9 | | bed (medical office representative) | needed. | | | | [...] XR CERVICAL SPINE 2 | Routin | 12/26/2017 | | Results for this | | OR 3 VIEWS | e | 2:07 PM | | procedure are in the | | | | PDT | | results section. | + +--------+ + + + documented in this encounter Results XR Cervical Spine 2 or 3 Views (12/26/2017 2:07 PM PDT) + + | Specimen | + + | | + + + + + | Impressions | Performed At | + + + | 1. C4 through C7 fusion. | | + + + + + + | Narrative | Performed At | + + + | [facility] 1960 57 years Male XR CERVICAL SPINE LIMITED | | | 2-3 VIEW 12/26/2017 2:07 PM INDICATION: Neck fusion. | | | COMPARISON: MRI cervical spine dated 11/04/2017 TECHNIQUE: Cervical | | | spine series, 2 views FINDINGS: Anterior plate and screws seen | | | fixating C4-5, C5-6, and C6-7. Intervertebral spacer device appears in | | | appropriate position. Prevertebral soft tissues are unremarkable. | | + + + + + | Procedure Note | + + | Duke, Alfredo Conversion - 10/29/2018 11:15 AM PDT JOELJENNIFER CANELA89 years MaleXR | | CERVICAL SPINE LIMITED 2-3 VIEW12/26/2017 2:07 PM INDICATION: Neck fusion. COMPARISON: | | MRI cervical spine dated 11/04/2017 TECHNIQUE: Cervical spine series, 2 views FINDINGS: | | Anterior plate and screws seen fixating C4-5, C5-6, and C6-7. Intervertebral spacer | | device appears in appropriate position. Prevertebral soft tissues are unremarkable. | | IMPRESSION: 1. C4 through C7 fusion. Electronically signed by Terrance Hickman DO on | | 12/26/2017 2:30 PM | | | |COMPARISON: MRI cervical spine dated 11/04/2017 | | | |TECHNIQUE: Cervical spine series, 2 views | | | |FINDINGS: Anterior plate and screws seen fixating C4-5, C5-6, and C6-7. Intervertebral spac er device appears in appropriate position. Prevertebral soft tissues are unremarkable. | | | |IMPRESSION: | |1. C4 through C7 fusion. | | | | | + + documented in this encounter Visit Diagnoses + + | Diagnosis | + + | S/P cervical spinal fusion Arthrodesis status | + + documented in this encounter"
--- OUTSIDE RECORDS SUMMARY | ~2019-04-01 | XMS | Encounter Summary ---
Demographics + + + | Address | [address] | | | [place] [address] | + + + | Home Phone | | + + + | Preferred Language | Unknown | + + + | Marital Status | | + + + | Latter Day Affiliation | Unknown | + + + | Race | Unknown | + + + | Ethnic Group | Unknown | + + + Author + + + | Author | [facility] | | | and [place] | + + + | Organization | [facility] | | | and [place] | + + + | Address | Unknown | + + + | Phone | Unavailable | + + + Support + + + + + | Name | Relationship | Address | Phone | + + + + + | Radha Dowling | ECON | [address] | | | | | [place] | | | | | [address] | | + + + + + Care Team Providers + +------+ + | Care District Sales Coordinator Name | Role | Phone | + +------+ + | Nick Yeh DO | PCP | | + +------+ + Reason for Visit + + + | Reason | Comments | + + + | Lab Results | | + + + | Referral | | + + + Encounter Details +--------+ + + + + | Date | Type | Department | Care Team | Description | +--------+ + + + + | 03/30/ | Telephone | [facility] | Nick Yeh, | Lab Results; | | 2019 | | MEDICINE [place] | DO [address] | Referral | | | | [address] | [place] | | | | | [place] | [address] | | | | | [address] | | | | | | [phone] | | | +--------+ + + + [...]
--- OUTSIDE RECORDS SUMMARY | ~2019-04-01 | XMS | Encounter Summary ---
Demographics + + + | Address | [address] | | | [place] [address] | + + + | Home Phone | | + + + | Preferred Language | Unknown | + + + | Marital Status | | + + + | Yazdanism Affiliation | Unknown | + + + | Race | Unknown | + + + | Ethnic Group | Unknown | + + + Author + + + | Author | [facility] | | | and [place] | + + + | Organization | [facility] | | | and [place] | + + + | Address | Unknown | + + + | Phone | Unavailable | + + + Support + + + + + | Name | Relationship | Address | Phone | + + + + + | Radha Dowling | ECON | [address] | | | | | [place] | | | | | [address] | | + + + + + Care Team Providers + +------+ + | Care Stamping Bench Die Maker Name | Role | Phone | + [...] | 03/10/ | Telephone | [facility] | Nick Yeh, | Results | | 2019 | | [facility] | DO [address] | | | | | [address] | [place] | | | | | [place], [place] | [address] | | | | | [address] | | | | | | [phone] | | | +--------+ + + + [...]
--- OUTSIDE RECORDS SUMMARY | ~2019-04-01 | XMS | Encounter Summary ---
Demographics + + + | Address | [address] | | | [place] [address] | + + + | Home Phone | | + + + | Preferred Language | Unknown | + + + | Marital Status | | + + + | Jain Affiliation | Unknown | + + + | Race | Unknown | + + + | Ethnic Group | Unknown | + + + Author + + + | Author | [facility] | | | and [place] | + + + | Organization | [facility] | | | and [place] | + + + | Address | Unknown | + + + | Phone | Unavailable | + + + Support + + + + + | Name | Relationship | Address | Phone | + + + + + | Radha Dowling | ECON | [address] | | | | | [place] | | | | | [address] | | + + + + + Care Team Providers + +------+ + | Care Hotel Housekeeper Name | Role | Phone | + +------+ + | Nick Yeh DO | PCP | | + +------+ + Encounter Details +--------+ + + + + | Date | Type | Department | Care Team | Description | +--------+ + + + + | 11/28/ | Orders Only | [facility] | Conversion | | | 2018 | | CONVERSION [address] | Transaction, | | | | | [address] | Provider Unknown | | | | | [place], [place] | [phone] | | | | | [address] | | | | | | [phone] | | | +--------+ + + + [...]
--- OUTSIDE RECORDS SUMMARY | ~2019-04-01 | XMS | Encounter Summary ---
Demographics + + + | Address | [address] | | | [place] [address] | + + + | Home Phone | | + + + | Preferred Language | Unknown | + + + | Marital Status | | + + + | Mu-Ism Affiliation | Unknown | + + + | Race | Unknown | + + + | Ethnic Group | Unknown | + + + Author + + + | Author | [facility] | | | and [place] | + + + | Organization | [facility] | | | and [place] | + + + | Address | Unknown | + + + | Phone | Unavailable | + + + Support + + + + + | Name | Relationship | Address | Phone | + + + + + | Radha Dowling | ECON | [address] | | | | | [place] | | | | | [address] | | + + + + + Care Team Providers + +------+ + | Care Drywall Installer Name | Role | Phone | + [...] Authorized | | Radiology | Diagnoses | [place], | [address] | | | | | Localized | [facility] | | | | | osteoarthrit | Johnny, | [address] | | | | | is of left | MD [address] | [address] | | | | | knee | [address] | [place], [place] | | | | | Mechanical | [place], | [address] | | | | | knee pain, | [place] | Phone: | | | | | left | [address] | [phone] | | | | | Procedures | Phone: | Fax: | | | | | MRI Knee | [phone] | [phone] | | | | | Left wo | Fax: | | | | | | Contrast | [phone] | | + +--------+ + + + [...] | | | | | | | [address] | | | | | | | Phone: | | | | | | | [phone] | | | | | | | Fax: | | | | | | | [phone] | + +--------+ + + + + Encounter Details +--------+---------+ + + + | Date | Type | Department | Care Team | Description | +--------+---------+ + + + | 02/25/ | Office | [facility] | Owen Whtiehead | Localized | | 2019 | Visit | ORTHOPEDIC SURGERY | MD [address] | osteoarthritis of | | | | [address] | [address] [place] | left knee (Primary | | | | [place], [place] | [place] [address] | Dx); Mechanical knee | | | | [address] | [phone] | pain, left | | | | [phone] | | | +--------+---------+ + + + [...] cartilage lining of the joint Arthritis from kovi-jlr-gspg or inflammation There are other causes as [...] other type of cloth. You may use snpu-nur-cdusgcp pain medicine to control pain, unless another [...] full work duties. If you have a cqqg-equ-ourg knee brace, you can remove it to [...] your healthcare provider [place] Date Last Reviewed: 07/16/201719995427-9817 [employer]. [address] [place] [address]. All righ ts reserved. This information is not intended as a substitute for professional medical care. Always follow your healthcare professional's instructions. documented in this encounter Progress Notes Owen Whitehead MD - 02/25/2019 2:15 PM PSTFormatting of this note might be dif ferent from the original. [facility] RETURN CLINIC VISIT Pt. Name/Age/: Joel Canela [...] file Gets together: Not on file Attends presybeterian service: Not on file Active member of [...] made to ensure accuracy; however, inadvertent computerized certified master locksmith errors may be pre sent. I appreciate [...]
--- OUTSIDE RECORDS SUMMARY | ~2019-04-01 | XMS | Encounter Summary ---
Demographics + + + | Address | [address] | | | [place] [address] | + + + | Home Phone | | + + + | Preferred Language | Unknown | + + + | Marital Status | | + + + | Zoroastrianism Affiliation | Unknown | + + + | Race | Unknown | + + + | Ethnic Group | Unknown | + + + Author + + + | Author | [facility] | | | and [place] | + + + | Organization | [facility] | | | and [place] | + + + | Address | Unknown | + + + | Phone | Unavailable | + + + Support + + + + + | Name | Relationship | Address | Phone | + + + + + | Radha Dowling | ECON | [address] | | | | | [place] | | | | | [address] | | + + + + + Care Team Providers + +------+ + | Care Paint Sprayer Sandblaster Name | Role | Phone | + [...] + + | 02/26/ | Telephone | [facility] | Owen Whitehead | Other (MRI ORDERS) | | 2019 | | ORTHOPEDIC SURGERY | MD [address] | | | | | [address] [facility] | [facility] | | | | | [place] | [place] [address] | | | | | [address] | [phone] | | | | | [phone] | | | +--------+ + + + [...]
--- OUTSIDE RECORDS SUMMARY | ~2019-04-01 | XMS | Encounter Summary ---
Demographics + + + | Address | [address] | | | [place] [address] | + + + | Home Phone | | + + + | Preferred Language | Unknown | + + + | Marital Status | | + + + | Caodaism Affiliation | Unknown | + + + | Race | Unknown | + + + | Ethnic Group | Unknown | + + + Author + + + | Author | [facility] | | | and [place] | + + + | Organization | [facility] | | | and [place] | + + + | Address | Unknown | + + + | Phone | Unavailable | + + + Support + + + + + | Name | Relationship | Address | Phone | + + + + + | Radha Dowling | ECON | [address] | | | | | [place] | | | | | [address] | | + + + + + Care Team Providers + +------+ + | Care Real Estate Rep Name | Role | Phone | + [...] [place] | | | | | [phone] | [place] [address] | | +--------+ + + + + [...]
--- OUTSIDE RECORDS SUMMARY | ~2019-04-01 | XMS | Encounter Summary ---
Demographics + + + | Address | [address] | | | [place] [address] | + + + | Home Phone | | + + + | Preferred Language | Unknown | + + + | Marital Status | | + + + | Advent Affiliation | Unknown | + + + | Race | Unknown | + + + | Ethnic Group | Unknown | + + + Author + + + | Author | [facility] | | | and [place] | + + + | Organization | [facility] | | | and [place] | + + + | Address | Unknown | + + + | Phone | Unavailable | + + + Support + + + + + | Name | Relationship | Address | Phone | + + + + + | Radha Dowling | ECON | [address] | | | | | [place] | | | | | [address] | | + + + + + Care Team Providers + +------+ + | Care Aviation Safety Inspector Name | Role | Phone | + [...] Unknown | | | | | [place] | [phone] | | | | | [address] | | | | | | [phone] | | | +--------+ + + + [...]
--- OUTSIDE RECORDS SUMMARY | ~2019-04-01 | XMS | Encounter Summary ---
Demographics + + + | Address | [address] | | | [place] [address] | + + + | Home Phone | | + + + | Preferred Language | Unknown | + + + | Marital Status | | + + + | Presybeterian Affiliation | Unknown | + + + | Race | Unknown | + + + | Ethnic Group | Unknown | + + + Author + + + | Author | [facility] | | | and [place] | + + + | Organization | [facility] | | | and [place] | + + + | Address | Unknown | + + + | Phone | Unavailable | + + + Support + + + + + | Name | Relationship | Address | Phone | + + + + + | Radha Dowling | ECON | [address] | | | | | [place] | | | | | [address] | | + + + + + Care Team Providers + +------+ + | Care Delivery Coordinator Name | Role | Phone | + +------+ + | Nick Yeh DO | PCP | | + +------+ + Encounter Details +--------+ + + + + | Date | Type | Department | Care Team | Description | +--------+ + + + + | 03/10/ | Abstract | [facility] | Nick Yeh, | | | 2019 | | [facility] [facility] | DO [address] | | | | | [address] | [place] | | | | | [place] | [address] | | | | | [address] | | | | | | [phone] | | | +--------+ + + + [...] + + documented in this encounter Results CBC with Differential (03/09/2019) + +-------+ + [...] + + | Blood | + + Lipid Panel (03/09/2019) + +-------+ [...] | Blood | + + External Lab: CBC (03/09/2019) + [...] + +---------+ + + + External Lab: Glucose (03/09/2019) + +-------+ + [...] + +-------+ + + + External Lab: Triglycerides (03/09/2019) [...] + + | Blood | + + documented in this encounter Visit Diagnoses Not on filedocumented in this encounter"
--- OUTSIDE RECORDS SUMMARY | ~2019-04-01 | XMS | Encounter Summary ---
Demographics + + + | Address | [address] | | | [place] [address] | + + + | Home Phone | | + + + | Preferred Language | Unknown | + + + | Marital Status | | + + + | Taoist Affiliation | Unknown | + + + | Race | Unknown | + + + | Ethnic Group | Unknown | + + + Author + + + | Author | [facility] | | | and [place] | + + + | Organization | [facility] | | | and [place] | + + + | Address | Unknown | + + + | Phone | Unavailable | + + + Support + + + + + | Name | Relationship | Address | Phone | + + + + + | Radha Dowling | ECON | [address] | | | | | [place] | | | | | [phone] | | + + + + + Care Team Providers + +------+ + | Care Window Shade Installer Name | Role | Phone | + +------+ + PCP | Unavailable | + +------+ + Encounter Details +--------+ + + + + | Date | Type | Department | Care Team | Description | +--------+ + + + + | 11/12/ | Hospital | [facility] | Silvia White MD | Fall from horse, | | 2018 - | Encounter | [facility] | [address] | initial encounter; | | | | [address] | 5TH FLOOR | Closed fracture of | | [facility]/14/ [facility] [place] | cervical vertebra, | | 2018 | | [address] | [address] | unspecified cervical | | | | [phone] | [phone] | vertebral level, | | | | | | initial encounter | | | | | | ([facility]LY [facility]) | +--------+ + + + + Social [...] + + + | Blood Pressure | 140/79 | 11/14/2017 8:29 AM | | | | | PDT | | + + + + + | Pulse | 86 | 11/14/2017 8:29 AM | | | [...] + + + + | Weight | 95.2 kg (209 lb 14.1 | 11/14/2017 8:29 AM | | | | oz) | PDT | | + + + + + | Height | 188 cm (6' 2") | 11/14/2017 8:29 AM | | | | | PDT | | + + + + + | Body Mass Index | 26.95 | 11/14/2017 8:29 AM | | | | | PDT | | + + + + + documented in this encounter Discharge Summaries Silvia White MD - 11/14/2017 9:05 AM PDTFormatting of this note might be different fr om the original. Discharge Summaries by Silvia White MD at 11/14/17904 Author: Silvia White MD Service: Neurosurgery Author Type: Physician Filed: 11/17/17 1051 Date of Service: 11/14/17904 Status: Signed Restoration Technician: Silvia White MD (Physician) [facility] Service: Neurosurgery Discharge Summary Date of Admission: 11/12/2017 Date of Discharge: 11/14/2017 Discharge Physician: SILVIA WHITE MD Treatment Team: Treatment Team: Consulting Physician: Silvia White MD Admitting Provider: Simi Jurado MD Discharge Diagnoses: Principal Problem: Closed nondisplaced fracture of fourth cervical vertebra with routine healing Active Problems: Closed nondisplaced fracture of seventh cervical vertebra with routine healing Injury to ligament of cervical spine Left arm weakness Resolved Problems: * No resolved hospital problems. * Procedures: CERVICAL - DISC & FUSION - ANTERIOR - C4-7 BRIEF HISTORY OF PRESENTATION: Joel Alaniz is a 56 y.o. male who presented after a fall from a horse with +LOC. HOSPITAL COURSE: Workup showed no intracranial injury but significant weakness of the left arm consiste nt with brachial plexus stretch as well as ligamentous/vertebral fractures C4-7. He was boris en to the OR on 11-12 for anterior cervical fusion C4-7. He tolerated the procedure well and was cared for on the surgical floor. His voice and swallowing intact postop. He was maint ained in an Phelps collar. He did have some impulsivity in the hospital and required some re direction. His left arm remained weak and he was seen by OT and PT with recommendations for outpatient therapy. He was stable for discharge home into the care of his . Past Medical History Diagnosis Date Concussion multiple per Past Surgical History Procedure Laterality Date CERVICAL FUSION N/A 11/12/2017 Procedure: CERVICAL - DISC & FUSION - ANTERIOR; Surgeon: Silvia White MD; Location: [facility]; Service: Neurosurgery; Laterality: N/A; C4-7 Allergies Allergen Reactions Dilaudid [Hydromorphone] Agitation No prescriptions prior to admission. DISCHARGE EXAM Vital Signs: BP 140/79 (BP Location: Left upper arm) | Pulse 86 | Temp 98.2 F (36.8 C) (Oral) | R gigi 16 | Ht 1.88 m (6' 2") | Wt 95.2 kg (209 lb 14.1 oz) | SpO2 95% | BMI 26.95 kg/m Alert and oriented to person, hospital, doesn't recall accident. Able to stand up from bed and walks to bathroom. Left arm is weak in multiple muscle groups, but deltoid 2/5, biceps 3/5, triceps 3/5, WE 4/ 5, sharepoint specialist 4/5. Numbness in left 1st - 3rd digits not rest of hand or proximal shoulder. Incision C/D/I. DATA CBC: Lab Results Component Value Date WBC 12.93 (H) 11/12/2017 RBC 5.05 11/12/2017 HGB 14.7 11/12/2017 HCT 43.8 11/12/2017 MCV 86.8 11/12/2017 MCH 29.0 11/12/2017 MCHC 33.5 11/12/2017 RDW 41.6 11/12/2017 PLT 269 11/12/2017 MPV 8.4 11/12/2017 DIFFTYPE AUTOMATED 11/12/2017 BMP: Lab Results Component Value Date NA 142 11/12/2017 K 3.9 11/12/2017 CL 108 11/12/2017 CO2 27 11/12/2017 ANIONGAP 11 11/12/2017 GLUF 119 (H) 11/12/2017 BUN 15 11/12/2017 CREATININE 1.0 11/12/2017 BCR 15 11/12/2017 CA 8.3 (L) 11/12/2017 EGFR >60 11/12/2017 PLAN 1. s/p C4-7 ACDF for Cspine fractures and ligament injury. -Continue Phelps collar -Plan d/c home -No work or driving for now -Followup in 2 weeks 2. Closed head injury, continues to be impulsive, sometimes agitated/anxious. -Should improve with time, non-surgical 3. Left arm weakness. 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 No discharge procedures on file. Follow up: Sil[facility] MD [address] [facility] [address] In 2 weeks For re-check Jack Funez MD [address] [place] [address] [place] [address] Medication List START taking these medications diazePAM 5 MG tablet QTY: 60 tablet Refills: 0 For diagnoses: Closed fracture of cervical vertebra, unspecified cervical vertebral level, initial encounter Commonly known as: VALIUM Take 1 tablet by mouth every 6 (six) hours as needed for Muscle spasms. oxyCODONE 5 MG immediate release tablet QTY: 80 tablet Refills: 0 For diagnoses: Closed fracture of cervical vertebra, unspecified cervical vertebral level, initial encounter Commonly known as: ROXICODONE Take one to two tablets as needed for pain every 6 hours Where to Get Your Medications You can get these medications from any pharmacy Bring a paper prescription for each of these medications diazePAM 5 MG tablet oxyCODONE 5 MG immediate release tablet SILVIA WHITE MD documented in this encounter Progress Notes Conversion Transaction, Provider Unknown - 11/14/2017 9:05 AM PDTFormatting of this note m ight be different from the original. Case Management by Linette Cochran RN at 11/14/17904 Author: Linette Cochran RN Service: (none) Author Type: Registered Nurse Filed: 11/14/17 1635 Date of Service: 11/14/17904 Status: Signed Restoration Technician: Linette Cochran RN (Registered Nurse) Discharge Planning: CM sent HH ref to [facility], spoke to pt PCP does not sign for HH . Disposition: pt to d/c home with spouse Transportation: family transport All orders, signed AVS, and prescriptions have been faxed All DC paperwork completed Patient and family in agreement with discharge plan Medicare important message N/A Linette Cochran RN CM ewel, Silvia Carrion MD - 11/14/2017 7:13 AM PDT Progress Notes by Silvia White MD at 11/14/17712 Author: Silvia White MD Service: Neurosurgery Author Type: Physician Filed: 11/14/17 0716 Date of Service: 11/14/17712 Status: Signed Restoration Technician: Silvia White MD (Physician) [facility] Service: Neurological Surgery Progress Note Hospital Day: LOS: 2 days Post-Op Day: 2 Days Post-Op SUBJECTIVE Doing OK. Wants to go home. Some anxiety, impulsivity still. Swallowing OK but throat sore. OBJECTIVE Vital Signs: BP 140/79 (BP Location: Left upper arm) | Pulse 86 | Temp 98.2 F (36.8 C) (Oral) | R gigi 16 | Ht 1.88 m (6' 2") | Wt 95.2 kg (209 lb 14.1 oz) | SpO2 95% | BMI 26.95 kg/m Input/Output Last 3 shifts I/O last 3 completed shifts: In: 800 [P.O.:800] Out: 388 [Urine:300; Drains:88] Input/Output Last shift No intake/output data recorded. Physical Exam: Walking around halls. Alert and oriented to person, hospital, doesn't recall accident. Drain removed, incision looks good. Left arm is weak in multiple muscle groups, but deltoid 2/5, biceps 3/5, triceps 3/5, WE 4/ 5, sharepoint specialist 4/5. Numbness in left 1st - 3rd digits not rest of hand or proximal shoulder. PROBLEM LIST Principal Problem: Closed nondisplaced fracture of fourth cervical vertebra with routine healing Active Problems: Closed nondisplaced fracture of seventh cervical vertebra with routine healing Injury to ligament of cervical spine Left arm weakness ASSESSMENT & PLAN 56 year old s/p presumed fall from horse HOD#3 1. POD# 2 s/p C4-7 ACDF for Cspine fractures and ligament injury. -Continue Phelps collar -Plan d/c home today -No work until further notice -No lifting > 5 lbs. 2. Closed head injury, continues to be impulsive, sometimes agitated/anxious. -Should improve with time, non-surgical -No driving for now 3. Left arm weakness. Probable left brachial plexopathy -Will need OT outpatient SILVIA WHITE MD 11/14/2017 Silvia Sorensen M D - 11/13/2017 6:56 PM PDT Progress Notes by Silvia White MD at 11/13/17 4843 Author: Silvia White MD Service: Neurosurgery Author Type: Physician Filed: 11/13/171901 Date of Service: 11/13/171855 Status: Signed Restoration Technician: Silvia White MD (Physician) [facility] Service: Neurological Surgery Progress Note Hospital Day: LOS: 1 day Post-Op Day: 1 Day Post-Op SUBJECTIVE Seen on rounds this am. here, frustrated/upset by his impulsivity and anxiety. Able to swallow without issues. Talking fine. No change in his left arm weakness. Not much pain he says. OBJECTIVE Vital Signs: BP 141/87 (BP Location: Right upper arm) | Pulse 71 | Temp 98.4 F (36.9 C) (Oral) | Resp 14 | Ht 1.88 m (6' 2") | Wt 95.2 kg (209 lb 14.1 oz) | SpO2 97% | BMI 26.95 kg/m Input/Output Last 3 shifts I/O last 3 completed shifts: In: 900 [I.V.:900] Out: 583 [Urine:475; Drains:58; Blood:50] Input/Output Last shift I/O this shift: In: - Out: 30 [Drains:30] Physical Exam: Alert and oriented to person, hospital, doesn't recall accident. Drain with moderate output overnight. Able to stand up from bed and walks to bathroom. Left arm is weak in multiple muscle groups, but deltoid 2/5, biceps 3/5, triceps 3/5, WE 4/ 5, sharepoint specialist 4/5. Numbness in left 1st - 3rd digits not rest of hand or proximal shoulder. Incision C/D/I. PROBLEM LIST Principal Problem: Closed nondisplaced fracture of fourth cervical vertebra with routine healing Active Problems: Closed nondisplaced fracture of seventh cervical vertebra with routine healing Injury to ligament of cervical spine Left arm weakness ASSESSMENT & PLAN 56 year old s/p presumed fall from horse HOD#2 1. POD# 1 s/p C4-7 ACDF for Cspine fractures and ligament injury. -Continue Phelps collar -Continue drain one more day 2. Closed head injury, continues to be impulsive, sometimes agitated/anxious. -Should improve with time, non-surgical 3. Left arm weakness. 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 SILVIA WHITE MD 11/13/2017 onversion Transact ion, Provider Unknown - 11/13/2017 5:55 PM PDTFormatting of this note might be different fr om the original. Progress Notes by Percy Callejas at 11/13/171754 Author: Percy Callejas Service: (none) Author Type: Continuous Dryout Operator Helper Filed: 11/13/171807 Date of Service: 11/13/171754 Status: Signed Restoration Technician: Percy Callejas (Continuous Dryout Operator Helper) Request by pt & d/t [id number]-[id number]-tixqkv distress ("It happened so fast") r/t to neck fx after fall from horse. Pt kept referencing how unexpected and serious the injury w as ("I usually walk away from accidents"). Reflected w/ pt on the comprehensive impact of t he fall, including the physical neuro damage, the emotional trauma to his sense of vulnerabi lity, the relational damage to his 's ability to care for him while juggling other respo nsibilities, and the spiritual damage to his self-confidence and self-sufficiency. 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 Offered guidance in terms of how his rehabilitation ("re-habiting his bod y and sense of self") will also include these four aspects of one's person. Suggested that he consider engaging the days ahead as a "wilderness time" that likely feels uncertain, unfa miliar, unpredictable, and non-productive...yet is the very place for healing and restoratio n. Validated his spiritual pain and distress of Relatedness to that which has given his lif e meaning and purpose, including family, work, and outdoors activities ("I am a doer and a m moe--rarely still"). He reported that these interventions helped to ease some of his distr ess and validate his concerns. onver sophy Transaction, Provider Unknown - 11/13/2017 5:47 PM PDT Nurse Progress Note by Abraham Hernandez RN at 11/13/171746 Author: Abraham Hernandez RN Service: (none) Author Type: Registered Nurse Filed: 11/13/171747 Date of Service: 11/13/171746 Status: Signed Restoration Technician: Abraham Hernandez RN (Registered Nurse) End of shift chart check complete. onver sophy Transaction, Provider Unknown - 11/13/2017 11:35 AM PDT Case Management by Linette Cochran RN at 11/13/171134 Author: Linette Cochran RN Service: (none) Author Type: Registered Nurse Filed: 11/13/171135 Date of Service: 11/13/171134 Status: Signed Restoration Technician: Linette Cochran RN (Registered Nurse) Discharge Planning: CM attended RN rounding, pt to remain likely one more day, no change to ADC plan of home with spouse, pt resides in [facility], ref sent to [facility]. my Bender - 11/13/2017 11:05 AM PDTFormatting of this note might be different from the origi nal. Progress Notes by Amy Mills PA-C at 11/13/17 1105 Author: Amy Mills PA-C Service: General Surgery Author Type: Physician Assista nt - Certified Filed: 11/13/17 1310 Date of Service: 11/13/17 1105 Status: Signed Restoration Technician: Amy Mills PA-C (Physician General Contractor - Certified) Progress Note Hospital Day: LOS: 1 day Post-Op Day: 1 Day Post-Op Subjective This is a 56 y.o. male patient who presented to [facility] with a diagn osis of fall from horse. Events Overnight: Joel is alert and oriented to person, place, and time this morning. He complains of mi ld neck pain and left arm weakness. He denies any other complaints a this time. No abdominal pain, moving all 4 extremities. Assessment and Plan 56 YO male with cervical spine fractures with ligamentous involvement and left arm weakness after suspected fall off horse -POD1 Anterior cervical discectomy and fusion C4-[address] White Left arm weakness thought to be due to brachial plexus injury. No other trauma has been identified. Patient denies any other symptoms. Okay for general diet. PRN pain control. Surgical drain remains in. Disposition per neurosurgery. General Surgery will signoff at this time. Please reconsult if needed. Call with any questi ons or concerns. Scheduled Medications adenosine 6 mg Intravenous Once docusate sodium 100 mg Oral BID senna-docusate 1 tablet Oral BID Continuous Infusions lactated ringers 75 mL/hr at 11/12/17 2130 PRN Medications acetaminophen OR acetaminophen, acetaminophen OR acetaminophen, benzocaine-menthol, bisacodyl, diazepam OR diazePAM, LORazepam, magnesium hydroxide, morphine OR morphi ne OR morphine, ondansetron OR ondansetron, oxyCODONE OR oxyCODONE OR oxyCOD ONE, polyethylene glycol, saline lock IV - when tolerating PO fluids AND sodium chloride (PF), sodium chloride 0.9 %, zolpidem Objective Vital Signs: BP 138/84 (BP Location: Right upper arm) | Pulse 74 | Temp 98.2 F (36.8 C) (Oral) | Resp 14 | Ht 1.88 m (6' 2") | Wt 95.2 kg (209 lb 14.1 oz) | SpO2 98% | BMI 26.95 kg/m Results for orders placed or performed during the hospital encounter of 11/12/17 (from the past 24 hour(s)) MRSA by PCR Collection Time: 11/12/17 1:55 PM Result Value Ref Range SOURCE NARES(NOSE) MRSA PCR NEGATIVE NEGATIVE Intake/Output Summary (Last 24 hours) at 11/13/17 1306 Last data filed at 11/13/17 1200 Gross per 24 hour Intake 900 ml Output 438 ml Net 462 ml Physical Exam Constitutional: No distress. C-collar on, surgical drain in place with serosanguinous flui d output. Cardiovascular: Normal rate. Pulmonary: Effort normal. No stridor. No respiratory distress. Abdominal: Soft. no distension. Neurological: Alert and oriented to person, place, and time. Psychiatric: He has a normal mood and affect His behavior is normal. Thought content nuria bender Nursing note and vitals reviewed. Problem List Principal Problem: Closed nondisplaced fracture of fourth cervical vertebra with routine healing Active Problems: Closed nondisplaced fracture of seventh cervical vertebra with routine healing Injury to ligament of cervical spine Left arm weakness Signed: Amy Mills PA-C [facility] Acute Care Surgery Portions of this chart may have been created with voice recognition software. Occasional wr juliet-word or "sound-alike" substitutions may have occurred, even after review, due to the inh erent limitations of voice recognition software. Please read the chart carefully and recogni ze, using context, where these substitutions have occurred. Personal communication is reques johnnie for any clarifications. onversion Transaction, Provider Unknown - 11/12/2017 8:18 PM PDTFormatting of this note might be different from th e original. Nurse Progress Note by Hadley Ochoa RN at 11/12/172017 Author: Hadley Ochoa RN Service: (none) Author Type: Registered Nurse Filed: 11/12/172018 Date of Service: 11/12/172017 Status: Signed Restoration Technician: Hadley Ochoa RN (Registered Nurse) Report off to [facility] PACU. Patient in stable condition. HR 80-90s. Will continue to karis tor. onver sophy Transaction, Provider Unknown - 11/12/2017 8:07 PM PDT Nurse Progress Note by Hadley Ochoa RN at 11/12/172006 Author: Hadley Ochoa RN Service: (none) Author Type: Registered Nurse Filed: 11/12/172011 Date of Service: 11/12/172006 Status: Signed Restoration Technician: Hadley Ochoa RN (Registered Nurse) Dr. Espino at bedside. IV metoprolol given 5 mg. Patient's HR high of 158, maintained in 1 50s. Patient denies any pain, SOB or chest pain. After administration HR 80s. NSR. Will cont inue to monitor. onver sophy Transaction, Provider Unknown - 11/12/2017 7:50 PM PDT Nurse Progress Note by Hadley Ochoa RN at 11/12/171949 Author: Hadley Ochoa RN Service: (none) Author Type: Registered Nurse Filed: 11/12/171957 Date of Service: 11/12/171949 Status: Signed Restoration Technician: Hadley Ochoa RN (Registered Nurse) Dr. Espino at bedside to assess patient. HR 130s-140s.Dr. Espino to IVP Adenosine 6mg at bedside. Patient to tolerate medication administration. HR post administration 100s. Will co ntinue to monitor. onver sophy Transaction, Provider Unknown - 11/12/2017 6:00 PM PDT Nurse Progress Note by Nakia Bhagat RN at 11/12/171799 Author: Nakia Bhagat RN Service: (none) Author Type: Registered Nurse Filed: 11/12/17 180 Date of Service: 11/12/171799 Status: Signed Restoration Technician: Nakia Bhagat RN (Registered Nurse) End of shift chart review done. Nakia Bhagat RN onver sophy Transaction, Provider Unknown - 11/12/2017 1:58 PM PDT Case Management by SONIA Jefferson at 11/12/17 1358 Author: SONIA Jefferson Service: (none) Author Type: Prison Teacher Filed: 11/12/17 1401 Date of Service: 11/12/17 1358 Status: Addendum Restoration Technician: SONIA Jefferson (Prison Teacher) Related Notes: Original Note by SONIA Jefferson (Prison Teacher) filed at 11/12/17 1400 11/12/17 1356 Discharge Planning Evaluation Admitting Diagnosis AMS, neck trauma Readmission No Living Arrangements Spouse/significant other (Radha [phone]) Support Systems Spouse/significant other Type of Residence Private residence House type House-1 story Steps to enter 6 Independent with ADL's Yes Independent with Mobility Yes Mental Status Oriented Prior functional status Patient is indpt in ADLs and IADLs (drives) Anticipated Discharge Plan Post Acute Care Needs None at this time Plan communicated to patient/family Yes Resources Financial concerns No Transportation issues No Patient/Family concerns No Prescription Plan Yes Previous home health equipment No Vascular access device No Ostomy/Drains/Appliances No Anticipated Disposition Facility Type (TBD) Met with patient. Explained CM role and discussed discharge planning. Pt is a 56 yr old male admitted with above.Denies outpt medical services such as dialysis, home infusion , home health, coumadin clinic, or home oxygen.Pt is aware CM will follow for D/C needs as they arise during hospitalization. Follow for PT recommendations, Patient's spouse is self-employed and she states she is unab le to take very much time away from the business. They are interested in private-pay [email or web address] [facility] information, possibly home health... Depending on his recovery. CM also supplied healthcare POA/advanced directive paperwork. Patient's PCP is: JACK FUNEZ Patient's insurance: [employer] Coverage concerns: no Medication coverage/concerns: yes/no Community resources utilized / needed: Assistance in transportation: family transport Identification of any specific education / training: Barriers to Discharge / Alternative housing needed: Anticipated DCP: TBD SONIA Jefferson onver sophy Philip Provider Unknown - 11/12/2017 4:08 AM PDT Progress Notes by Rachid Woodruff RPH at 11/12/17407 Author: Rachid Woodruff RPH Service: Pharmacy Author Type: Pharmacist Filed: 11/12/17407 Date of Service: 11/12/17407 Status: Signed Restoration Technician: Rachid Woodruff RPH (Pharmacist) Note ccl 95.9ml/min meds reviewed pharmacy will follow rdc 0408 docume nted in this encounter Plan of Treatment Not on filedocumented as of this encounter Procedures + +--------+ + + + | Procedure Name | Priori | Date/Time | Associated Diagnosis | Comments | | | ty | | | | + +--------+ + + + | FL C ARM > 1 HOUR | Routin | 11/12/2017 | | Results for this | | | e | 6:20 PM | | procedure are in the | | | | PDT | | results section. | + +--------+ + + + | MRSA NAAT | Timed | 11/12/2017 | | Results for this | | | | 1:55 PM | | procedure are in the | | | | PDT | | results section. | + +--------+ + + + | CT ANGIOGRAM HEAD | Routin | 11/12/2017 | | Results for this | | NECK W CONTRAST | e | 2:55 AM | | procedure are in the | | | | PDT | | results section. | + +--------+ + + + | MRI BRAIN W WO | Routin | 11/12/2017 | | Results for this | | CONTRAST | e | 2:40 AM | | procedure are in the | | | | PDT | | results section. | + +--------+ + + + | MRI CERVICAL SPINE | Routin | 11/12/2017 | | Results for this | | WO CONTRAST | e | 2:36 AM | | procedure are in the | | | | PDT | | results section. | + +--------+ + + + | EXTERNAL LAB: CBC | Routin | 11/12/2017 | | Results for this | | | e | 1:22 AM | | procedure are in the | | | | PDT | | results section. | + +--------+ + + + | PROTIME INR | Routin | 11/12/2017 | | Results for this | | | e | 1:22 AM | | procedure are in the | | | | PDT | | results section. | + +--------+ + + + | COMPREHENSIVE | Routin | 11/12/2017 | | Results for this | | METABOLIC PANEL | e | 1:22 AM | | procedure are in the | | | | PDT | | results section. | + +--------+ + + + | ECG 12 LEAD | Routin | 11/12/2017 | | Results for this | | | e | 1:14 AM | | procedure are in the | | | | PDT | | results section. | + +--------+ + + + documented in this encounter Results FL C-Arm > 1 Hour (11/12/2017 6:20 PM PDT) + + | Specimen | + + | | + + + + + | Impressions | Performed At | + + + | 1. Status post anterior cervical fusion plate placement extending | | | from C4 through C7. | | + + + + + + | Narrative | Performed At | + + + | JOEL ALANIZ 1960 XR C-ARM FLUORO OVER 1 HOUR 11/12/2017 | | | 6:20 PM INDICATION: Status post fall from horse, neck pain | | | COMPARISON: MRI, 11/12/2017 TECHNIQUE: 2 intraoperative | | | fluoroscopic views, fluoroscopy time 10.2 seconds FINDINGS: The | | | patient is status post placement of a anterior cervical fusion plate | | | extending from what appears to be C4-C7. Bone plugs are noted along | | | the disc spaces. There is minimal anterior listhesis of C4 on C5. | | + + + + + | Procedure Note | + + | Alfredo Wall Conversion - 10/29/2018 11:15 AM PDT JOEL CORBIN1960XR C-ARM FLUORO | | OVER 1 HOUR11/12/2017 6:20 PM INDICATION: Status post fall from horse, neck pain | | COMPARISON: MRI, 11/12/2017 TECHNIQUE: 2 intraoperative fluoroscopic views, fluoroscopy | | time 10.2 seconds FINDINGS: The patient is status post placement of a anterior cervical | | fusion plate extending from what appears to be C4-C7. Bone plugs are noted along the | | disc spaces. There is minimal anterior listhesis of C4 on C5. IMPRESSION: 1. Status | | post anterior cervical fusion plate placement extending from C4 through C7. | | | | | |TECHNIQUE: 2 intraoperative fluoroscopic views, fluoroscopy time 10.2 seconds | | | |FINDINGS: The patient is status post placement of a anterior cervical fusion plate extendin g from what appears to be C4-C7. Bone plugs are noted along the disc spaces. There is minima l anterior listhesis of C4 on C5. | | | |IMPRESSION: | |1. Status post anterior cervical fusion plate placement extending from C4 through C7. | | | | | + + MRSA NAAT (11/12/2017 1:55 PM PDT) + + | Specimen | + + | | + + + + + | Narrative | Performed At | + + + | SOURCE NARES(NOSE) MRSA | EXTERNAL LAB | | PCR NEGATIVE Testing | | | performed at [facility];[address] [place] [address];NIKO Portillo [address] | | + + + + +---------+ + + | Performing | Address | City/State/Zipcode | Phone Number | | Organization | | | | + +---------+ + + | EXTERNAL LAB | | | | + +---------+ + + CT Angiogram Head and Neck w Contrast (11/12/2017 2:55 AM PDT) + + | Specimen | + + | | + + + + + | Impressions | Performed At | + + + | CT SCAN HEAD: No acute or focal intracranial abnormality. CT | | | ANGIOGRAM NECK: No significant carotid or vertebral artery stenosis in | | | the neck. No evidence of dissection. CT ANGIOGRAM HEAD: No large | | | vessel occlusion, stenosis or aneurysm. [facility] Electronically | | | signed by Margarito Cardoso MD on Nov 12 2017 3:40AM Referring Provider | | | Line: [phone] ID: [id number] | | + + + + + + | Narrative | Performed At | + + + | EXAM: CT ANGIOGRAM HEAD AND NECK. CT SCAN HEAD WITHOUT CONTRAST. | | | EXAM DATE:11/12/2017 03:03 AM. CLINICAL HISTORY:Other (see | | | comments). COMPARISON:Outside head CT and cervical spine | | | 11/11/2017. TECHNIQUE: Routine axial helical CTA imaging was | | | performed from the aortic arch through the [place] of Car. Routine | | | axial CT imaging of the head was performed prior to and following | | | contrast administration. Reconstructions: Routine multiplanar 3D MIP | | | reconstructions. IV contrast: APPLIED. NASCET Criteria are used for | | | stenosis measurements. In accordance with CT protocol | | | optimization, one or more of the following dose reduction techniques | | | were utilized for this exam: automated exposure control, adjustment of | | | mA and/or KV based on patient size, or use of iterative | | | reconstructive technique. FINDINGS: CT SCAN HEAD: Parenchyma: No | | | intraparenchymal hemorrhage. No evidence of mass, midline shift, or | | | CT findings of acute infarction. Bay-white differentiation is | | | distinct. Extraaxial Spaces: Normal for age. No subdural or | | | epidural collections identified. Ventricles: Normal in size and | | | position. Sinuses and Orbits: Imaged paranasal sinuses, orbits, | | | and mastoids show no significant abnormality. Bones: No evidence | | | of fracture or calvarial defect. CT ANGIOGRAM EXTRACRANIAL | | | CIRCULATION: The visualized arch is unremarkable. Great vessels are | | | patent and unremarkable. Right Carotid: The common carotid, | | | internal carotid, and external carotid arteries are widely patent. No | | | dissection, significant atherosclerotic plaque, or calcification | | | identified. Left Carotid: The common carotid, internal carotid, | | | and external carotid arteries are widely patent. No dissection, | | | significant atherosclerotic plaque, or calcification identified. | | | Vertebrals: Mild atherosclerotic narrowing of the left V1 segment. | | | Vertebral arteries are otherwise unremarkable and patent throughout | | | the neck. CT ANGIOGRAM INTRACRANIAL CIRCULATION: Normal. No | | | stenoses or aneurysms of the visualized vessels. The dural venous | | | sinuses are patent. Other: Better demonstrated on the prior | | | cervical spine CT are fractures involving the spinous process of C4 | | | and left lamina/lateral mass and transverse process of C7. | | + + + + + | Procedure Note | + + | [facility], Rad Conversion - 10/29/2018 11:15 AM PDT EXAM:CT ANGIOGRAM HEAD AND NECK.CT SCAN | | HEAD WITHOUT CONTRAST. EXAM DATE:11/12/2017 03:03 AM. CLINICAL HISTORY:Other (see | | comments). COMPARISON:Outside head CT and cervical spine 11/11/2017. TECHNIQUE: Routine | | axial helical CTA imaging was performed from the aortic arch through the [place] of | | Car. Routine axial CT imaging of the head was performed prior to and following | | contrast administration. Reconstructions: Routine multiplanar 3D MIP reconstructions. IV | | contrast: APPLIED.NASCET Criteria are used for stenosis measurements. In accordance | | with CT protocol optimization, one or more of the following dose reduction techniques | | were utilized for this exam: automated exposure control, adjustment of mA and/or KV | | based on patient size, or use of iterative reconstructive technique. FINDINGS:CT SCAN | | HEAD:Parenchyma: No intraparenchymal hemorrhage. No evidence of mass, midline shift, or | | CT findings of acute infarction. Bay-white differentiation is distinct. Extraaxial | | Spaces: Normal for age. No subdural or epidural collections identified. Ventricles: | | Normal in size and position. Sinuses and Orbits: Imaged paranasal sinuses, orbits, and | | mastoids show no significant abnormality. Bones: No evidence of fracture or calvarial | | defect. CT ANGIOGRAM EXTRACRANIAL CIRCULATION:The visualized arch is unremarkable. Great | | vessels are patent and unremarkable. Right Carotid: The common carotid, internal | | carotid, and external carotid arteries are widely patent. No dissection, significant | | atherosclerotic plaque, or calcification identified. Left Carotid: The common carotid, | | internal carotid, and external carotid arteries are widely patent. No dissection, | | significant atherosclerotic plaque, or calcification identified. Vertebrals: Mild | | atherosclerotic narrowing of the left V1 segment. Vertebral arteries are otherwise | | unremarkable and patent throughout the neck. CT ANGIOGRAM INTRACRANIAL | | CIRCULATION:Normal. No stenoses or aneurysms of the visualized vessels. The dural venous | | sinuses are patent. Other: Better demonstrated on the prior cervical spine CT are | | fractures involving the spinous process of C4 and left lamina/lateral mass and | | transverse process of C7. IMPRESSION: CT SCAN HEAD: No acute or focal intracranial | | abnormality. CT ANGIOGRAM NECK: No significant carotid or vertebral artery stenosis in | | the neck. No evidence of dissection. CT ANGIOGRAM HEAD: No large vessel occlusion, | | stenosis or aneurysm. [facility] Electronically signed by Margarito Cardoso MD on Nov 12 2017 | | 3:40AM Referring Provider Line: [phone] ID: [id number] | | | |Right Carotid: The common carotid, internal carotid, and external carotid arteries are wide ly patent. No dissection, significant atherosclerotic plaque, or calcification identified. | | | |Left Carotid: The common carotid, internal carotid, and external carotid arteries are widel y patent. No dissection, significant atherosclerotic plaque, or calcification identified. | | | |Vertebrals: Mild atherosclerotic narrowing of the left V1 segment. Vertebral arteries are o therwise unremarkable and patent throughout the neck. | | | |CT ANGIOGRAM INTRACRANIAL CIRCULATION: | |Normal. No stenoses or aneurysms of the visualized vessels. | | | |The dural venous sinuses are patent. | | | |Other: Better demonstrated on the prior cervical spine CT are fractures involving the spino us process of C4 and left lamina/lateral mass and transverse process of C7. | | | |IMPRESSION: | | | |CT SCAN HEAD: No acute or focal intracranial abnormality. | | | |CT ANGIOGRAM NECK: No significant carotid or vertebral artery stenosis in the neck. No evid ence of dissection. | | | |CT ANGIOGRAM HEAD: No large vessel occlusion, stenosis or aneurysm. | | | |[facility] | | | | Electronically signed by Margarito Cardoso MD on Nov 12 2017 3:40AM Referring Provider Line: [phone] ID: [id number] | + + MRI Brain w wo Contrast (11/12/2017 2:40 AM PDT) + + | Specimen | + + | | + + + + + | Impressions | Performed At | + + + | 1. No acute or focal intracranial abnormality. No abnormal | | | enhancement. [facility] Electronically signed by Margarito | | | MD Janae on Nov 12 2017 3:24AM Referring Provider Line: | | | [phone] ID: [id number] | | + + + + + + | Narrative | Performed At | + + + | EXAM: MRI BRAIN WITHOUT AND WITH CONTRAST EXAM DATE: 11/12/2017 | | | 02:41 AM. CLINICAL HISTORY: Fall from horse. Head injury. | | | COMPARISON: Outside head CT 11/11/2017. TECHNIQUE: Multiplanar, | | | multisequence T1-weighted and fluid-sensitive MR sequences of the | | | brain were performed. Sequences optimized for routine evaluation. | | | Other: None. IV Contrast: MultiHance. FINDINGS: Brain Volume: | | | Normal for age. Parenchyma/Dura: No mass, acute infarct or | | | hemorrhage. No white matter lesions identified. No abnormal | | | enhancement. Ventricles/Cisterns: No hydrocephalus. No abnormal | | | extra-axial fluid collection or hemorrhage. Orbits: Symmetric and | | | unremarkable. Sella Turcica: The pituitary gland, cavernous | | | sinuses, suprasellar cistern and optic chiasm are unremarkable. | | | IAC: Symmetric and unremarkable. Vasculature: Normal signal flow | | | void is seen in the major arterial structures at the skull base. | | | Sinuses: No acute appearing sinus disease. Bones: No focal | | | pathologic appearing marrow signal changes. Other: None. | | + + + + + | Procedure Note | + + | [facility], Alfredo Conversion - 10/29/2018 11:15 AM PDT EXAM:MRI BRAIN WITHOUT AND WITH | | CONTRAST EXAM DATE: 11/12/2017 02:41 AM. CLINICAL HISTORY: Fall from horse. Head injury. | | COMPARISON: Outside head CT 11/11/2017. TECHNIQUE: Multiplanar, multisequence | | T1-weighted and fluid-sensitive MR sequences of the brain were performed. Sequences | | optimized for routine evaluation. Other: None. IV Contrast: MultiHance. FINDINGS:Brain | | Volume: Normal for age. Parenchyma/Dura: No mass, acute infarct or hemorrhage. No white | | matter lesions identified. No abnormal enhancement. Ventricles/Cisterns: No | | hydrocephalus. No abnormal extra-axial fluid collection or hemorrhage. Orbits: Symmetric | | and unremarkable. Sella Turcica: The pituitary gland, cavernous sinuses, suprasellar | | cistern and optic chiasm are unremarkable. IAC: Symmetric and unremarkable. Vasculature: | | Normal signal flow void is seen in the major arterial structures at the skull base. | | Sinuses: No acute appearing sinus disease. Bones: No focal pathologic appearing marrow | | signal changes. Other: None. IMPRESSION: 1. No acute or focal intracranial abnormality. | | No abnormal enhancement. [facility] Electronically signed by Margarito Cardoso MD on Nov 12 | | 2017 3:24AM Referring Provider Line: [phone] ID: [id number] | | | |Ventricles/Cisterns: No hydrocephalus. No abnormal extra-axial fluid collection or hemorrha ge. | | | |Orbits: Symmetric and unremarkable. | | | |Sella Turcica: The pituitary gland, cavernous sinuses, suprasellar cistern and optic chiasm are unremarkable. | | | |IAC: Symmetric and unremarkable. | | | |Vasculature: Normal signal flow void is seen in the major arterial structures at the skull base. | | | |Sinuses: No acute appearing sinus disease. | | | |Bones: No focal pathologic appearing marrow signal changes. | | | |Other: None. | | | |IMPRESSION: | | | |1. No acute or focal intracranial abnormality. No abnormal enhancement. | | | | | | | |[facility] | | | | Electronically signed by Margarito Cardoso MD on Nov 12 2017 3:24AM Referring Provider Line: [phone] ID: [id number] | + + MRI Cervical Spine wo Contrast (11/12/2017 2:36 AM PDT) + + | Specimen | + + | | + + + + + | Impressions | Performed At | + + + | 1. Edema is seen involving the spinous process of C4, as well as | | | the lateral mass on the left at C7. Fractures are present in these | | | regions on the prior CT. 2. There are findings consistent with | | | disruption of the anterior longitudinal ligament/anterior disk space | | | at C4-C5. There is associated prevertebral edema. 3. This is a | | | potentially unstable injury. [facility] The above findings | | | were discussed with Irma Bledsoe by Dr. Margarito Cardoso at 03:17 hrs | | | on 11/12/17. Electronically signed by Margarito Cardoso MD on Nov 12 | | | 2017 3:21AM Referring Provider Line: [phone] ID: [id number] | | + + + + + + | Narrative | Performed At | + + + | EXAM: MRI CERVICAL SPINE WITHOUT CONTRAST EXAM DATE: 11/12/2017 | | | 02:36 AM. CLINICAL HISTORY: Fall from horse. COMPARISONS: | | | Outside cervical spine CT 11/11/2017. TECHNIQUE: Multiplanar, | | | multisequence T1-weighted and fluid-sensitive sequences of the | | | cervical spine without contrast. Other: None. FINDINGS: | | | Neurologic Structures: The visualized posterior fossa structures are | | | unremarkable. No signal abnormality in the visualized spinal cord. | | | Alignment: No scoliosis or spondylolisthesis. Bone Marrow: Edema | | | is seen involving the spinous process of C4, as well as the lateral | | | mass on the left at C7. Fractures are present in these regions on the | | | prior CT. Interspace Levels/Facets: C1-C2: Unremarkable. | | | C2-C3: Unremarkable. C3-C4: Unremarkable. C4-C5: There are | | | findings consistent with disruption of the anterior longitudinal | | | ligament/anterior disk space at this level. There is associated | | | prevertebral edema. C5-C6: Degenerative disk space narrowing | | | without significant central stenosis. C6-C7: Unremarkable. | | | C7-T1: Unremarkable. Musculature: Posterior paraspinal edema is | | | present about the C4 spinous process fracture. | | + + + + + | Procedure Note | + + | [facility], Rad Conversion - 10/29/2018 11:15 AM PDT EXAM:MRI CERVICAL SPINE WITHOUT | | CONTRAST EXAM DATE: 11/12/2017 02:36 AM. CLINICAL HISTORY: Fall from horse. COMPARISONS: | | Outside cervical spine CT 11/11/2017. TECHNIQUE: Multiplanar, multisequence T1-weighted | | and fluid-sensitive sequences of the cervical spine without contrast. Other: None. | | FINDINGS:Neurologic Structures: The visualized posterior fossa structures are | | unremarkable. No signal abnormality in the visualized spinal cord. Alignment: No | | scoliosis or spondylolisthesis. Bone Marrow: Edema is seen involving the spinous process | | of C4, as well as the lateral mass on the left at C7. Fractures are present in these | | regions on the prior CT. Interspace Levels/Facets:C1-C2: Unremarkable. C2-C3: | | Unremarkable. C3-C4: Unremarkable. C4-C5: There are findings consistent with disruption | | of the anterior longitudinal ligament/anterior disk space at this level. There is | | associated prevertebral edema. C5-C6: Degenerative disk space narrowing without | | significant central stenosis. C6-C7: Unremarkable. C7-T1: Unremarkable. Musculature: | | Posterior paraspinal edema is present about the C4 spinous process fracture. | | IMPRESSION: 1. Edema is seen involving the spinous process of C4, as well as the | | lateral mass on the left at C7. Fractures are present in these regions on the prior | | CT.2. There are findings consistent with disruption of the anterior longitudinal | | ligament/anterior disk space at C4-C5. There is associated prevertebral edema.3. This is | | a potentially unstable injury. [facility] The above findings were discussed with Irma | | Rakan by Dr. Margarito Cardoso at 03:17 hrs on 11/12/17. Electronically signed by Margarito | | MD Janae on Nov 12 2017 3:21AM Referring Provider Line: [phone] ID: [id number] | |C2-C3: Unremarkable. | | | |C3-C4: Unremarkable. | | | |C4-C5: There are findings consistent with disruption of the anterior longitudinal ligament/ anterior disk space at this level. There is associated prevertebral edema. | | | |C5-C6: Degenerative disk space narrowing without significant central stenosis. | | | |C6-C7: Unremarkable. | | | |C7-T1: Unremarkable. | | | |Musculature: Posterior paraspinal edema is present about the C4 spinous process fracture. | | | | | |IMPRESSION: | | | |1. Edema is seen involving the spinous process of C4, as well as the lateral mass on the le ft at C7. Fractures are present in these regions on the prior CT. | |2. There are findings consistent with disruption of the anterior longitudinal ligament/ante rior disk space at C4-C5. There is associated prevertebral edema. | |3. This is a potentially unstable injury. | | | | | |[facility] | | | |The above findings were discussed with Irma Bledsoe by Dr. Margarito Cardoso at 03:17 hrs on 11/12/17. | | | | Electronically signed by Margarito Cardoso MD on Nov 12 2017 3:21AM Referring Provider Line: [phone] ID: [id number] | + + Protime INR (11/12/2017 1:22 AM PDT) + + + + + + | Component | Value | Ref Range | Performed | Pathologist | | | | | At | Signature | + + + + + + | INR | 1.0Comment: REFERENCE | | EXTERNAL | | | | RANGE:0.9 - 1.2 | | LAB | | | | NON-ANTICOAGULATED2.0 | | | | | | - 3.0 ALL OTHER | | | | | | THERAPEUTIC | | | | | | INDICATIONS2.5 - 3.5 | | | | | | MECHANICAL HEART VALVES, | | | | | | RECURRENT OR SYSTEMIC | | | | | | EMBOLISMTesting | | | | | | performed at [facility] | | | | | | [facility];[place], [place] | | | | | | [address] | | | | + + + + + + + + | Specimen | + + | Blood specimen | | (specimen) | + + + +---------+ + + | Performing | Address | City/State/Zipcode | Phone Number | | Organization | | | | + +---------+ + + | EXTERNAL LAB | | | | + +---------+ + + External Lab: CBC (11/12/2017 1:22 AM PDT) + + + + + + | Component | Value | Ref Range | Performed | Pathologist | | | | | At | Signature | + + + + + + | WBC | 12.93 (H) | 3.80 - 11.00 | EXTERNAL | | | | | K/uL | LAB | | + + + + + + | RED CELL | 5.05 | 4.20 - 5.70 | EXTERNAL | | | COUNT | | M/uL | LAB | | + + + + + + | Hgb | 14.7 | 13.2 - 17.0 | EXTERNAL | | | | | g/dL | LAB | | + + + + + + | Hematocrit, | 43.8 | 39.0 - 50.0 % | EXTERNAL | | | POC | | | LAB | | + + + + + + | MCV | 86.8 | 80.0 - 100.0 fl | EXTERNAL | | | | | | LAB | | + + + + + + | MCH | 29.0 | 27.0 - 34.0 pg | EXTERNAL | | | | | | LAB | | + + + + + + | MCHC | 33.5 | 32.0 - 35.5 | EXTERNAL | | | | | g/dL | LAB | | + + + + + + | RDW-CV | 41.6 | 37 - 53 fl | EXTERNAL | | | | | | LAB | | + + + + + + | Platelet | 269 | 150 - 400 K/uL | EXTERNAL | | | Count | | | LAB | | | Plasma | | | | | + + + + + + | MPV | 8.4 | fl | EXTERNAL | | | | | | LAB | | + + + + + + | Differentia | AUTOMATED | | EXTERNAL | | | l Type | | | LAB | | + + + + + + | % Segmented | 87.12 | % | EXTERNAL | | | | | | LAB | | | Neutrophils | | | | | + + + + + + | % | 7.46 | % | EXTERNAL | | | Lymphocytes | | | LAB | | + + + + + + | % Monocytes | 4.85 | % | EXTERNAL | | | | | | LAB | | + + + + + + | % | 0.12 | % | EXTERNAL | | | Eosinophils | | | LAB | | + + + + + + | % Basophils | 0.45 | % | EXTERNAL | | | | | | LAB | | + + + + + + | Absolute | 11.27 (H) | 1.90 - 7.40 | EXTERNAL | | | Segmented | | K/uL | LAB | | | Neutrophils | | | | | + + + + + + | Absolute | 0.97 (L) | 1.00 - 3.90 | EXTERNAL | | | Lymphocytes | | K/uL | LAB | | + + + + + + | Absolute | 0.63 | 0.00 - 0.80 | EXTERNAL | | | Monocytes | | K/uL | LAB | | + + + + + + | Absolute | 0.02 | 0.00 - 0.50 | EXTERNAL | | | Eosinophils | | K/uL | LAB | | + + + + + + | Absolute | 0.06 | 0.00 - 0.10 | EXTERNAL | | | Basophils | | K/uL | LAB | | + + + + + + | RBC | RBC AND PLT MORPHOLOGY | | EXTERNAL | | | Morphology | APPEAR NORMAL | | LAB | | + + + + + + | Platelet | ADEQUATE | | EXTERNAL | | | Estimate | | | LAB | | + + + + + + | Differentia | SLIDE SCANNED, AGREES | | EXTERNAL | | | l Comments | WITH AUTOMATED | | LAB | | | | RESULTS.Comment: Testing | | | | | | performed at [facility];[id number] | | | | | [address];[place], [place] | | | | | | [address] | | | | + + + + + + + + | Specimen | + + | Blood specimen | | (specimen) | + + + +---------+ + + | Performing | Address | City/State/Zipcode | Phone Number | | Organization | | | | + +---------+ + + | EXTERNAL LAB | | | | + +---------+ + + Comprehensive Metabolic Panel (11/12/2017 1:22 AM PDT) + + + + + + | Component | Value | Ref Range | Performed | Pathologist | | | | | At | Signature | + + + + + + | Na | 142 | 135 - 145 | EXTERNAL | | | | | mmol/L | LAB | | + + + + + + | K | 3.9 | 3.5 - 4.9 | EXTERNAL | | | | | mmol/L | LAB | | + + + + + + | Cl | 108 | 99 - 109 mmol/L | EXTERNAL | | | | | | LAB | | + + + + + + | CO2 | 27 | 23 - 32 mmol/L | EXTERNAL | | | | | | LAB | | + + + + + + | Anion Gap | 11 | 5 - 20 mmol/L | EXTERNAL | | | | | | LAB | | + + + + + + | Glucose, | 119 (H) | 65 - 99 mg/dL | EXTERNAL | | | Fasting | | | LAB | | + + + + + + | BUN | 15 | 8 - 25 mg/dL | EXTERNAL | | | | | | LAB | | + + + + + + | Creatinine | 1.0 | 0.70 - 1.30 | EXTERNAL | | | | | mg/dL | LAB | | + + + + + + | BUN/Creatin | 15 | | EXTERNAL | | | ine Ratio | | | LAB | | + + + + + + | Calcium | 8.3 (L) | 8.5 - 10.5 | EXTERNAL | | | | | mg/dL | LAB | | + + + + + + | Protein, | 6.7 | 6.3 - 8.2 g/dL | EXTERNAL | | | Total | | | LAB | | + + + + + + | Albumin | 3.7 | 3.6 - 5.0 g/dL | EXTERNAL | | | | | | LAB | | + + + + + + | Globulin | 2.9 | 1.3 - 4.9 g/dL | EXTERNAL | | | | | | LAB | | + + + + + + | A/G Ratio | 1.3 | 1.0 - 2.4 | EXTERNAL | | | | | | LAB | | + + + + + + | Bilirubin | 0.5 | 0.1 - 1.5 mg/dL | EXTERNAL | | | Total | | | LAB | | + + + + + + | ALP, | 51 | 35 - 115 U/L | EXTERNAL | | | External | | | LAB | | + + + + + + | AST | 40 | 10 - 45 U/L | EXTERNAL | | | | | | LAB | | + + + + + + | ALT | 33 | 10 - 65 U/L | EXTERNAL | | | | | | LAB | | + + + + + + | Estimated | >60Comment: GFR <60: | mL/min/1.73m2 | EXTERNAL | | | GFR | CHRONIC KIDNEY DISEASE, | | LAB | | | | IF FOUND OVER A 3 MONTH | | | | | | PERIOD.GFR <15: KIDNEY | | | | | | FAILURE.FOR | | | | | | AMERICANS, MULTIPLY THE | | | | | | CALCULATED GFR BY | | | | | | 1.210.This eGFR is | | | | | | calculated using the | | | | | | MDRD IDMS traceable | | | | | | equation.Testing | | | | | | performed at [facility];[address] | | | | | [facility];[place], [place] | | | | | | [address] | | | | + + + + + + + + | Specimen | + + | Blood specimen | | (specimen) | + + + +---------+ + + | Performing | Address | City/State/Zipcode | Phone Number | | Organization | | | | + +---------+ + + | EXTERNAL LAB | | | | + +---------+ + + ECG 12 lead (11/12/2017 1:14 AM PDT) + + + + + + | Component | Value | Ref Range | Performed | Pathologist | | | | | At | Signature | + + + + + + | DIAGNOSIS: | Normal sinus | | EXTERNAL | | | | rhythmNormal ECGNo | | LAB | | | | previous ECGs | | | | | | availableThis ECG | | | | | | contains Unconfirmed | | | | | | Interpretation | | | | | | Statements. See ED | | | | | | Record for Physician | | | | | | Interpretation. | | | | | | Confirmed by MUSE READ | | | | | | ONLY, -COMPUTER ([id number]), | | | | | | online content editor DORA COBB (2) | | | | | | on 11/12/2017 1:36:42 PM | | | | | | | | | | + + + + + + + + | Specimen | + + | | + + + + + | Narrative | Performed At | + + + | Historically converted procedure from [facility] environment | EXTERNAL LAB | + + + + +---------+ + + | Performing | Address | City/State/Zipcode | Phone Number | | Organization | | | | + +---------+ + + | EXTERNAL LAB | | | | + +---------+ + + documented in this encounter Visit Diagnoses + + | Diagnosis | + + | Fall from horse, initial encounter | + + | Closed fracture of cervical vertebra, unspecified cervical vertebral level, initial | | encounter (HCC) | + + documented in this encounter
--- OUTSIDE RECORDS SUMMARY | ~2019-04-01 | XMS | Encounter Summary ---
Demographics + + + | Address | [address] | | | [place] [address] | + + + | Home Phone | | + + + | Preferred Language | Unknown | + + + | Marital Status | | + + + | Amish Affiliation | Unknown | + + + | Race | Unknown | + + + | Ethnic Group | Unknown | + + + Author + + + | Author | [facility] | | | and [place] | + + + | Organization | [facility] | | | and [place] | + + + | Address | Unknown | + + + | Phone | Unavailable | + + + Support + + + + + | Name | Relationship | Address | Phone | + + + + + | Radha Dowling | ECON | [address] | | | | | [place] | | | | | [address] | | + + + + + Care Team Providers + +------+ + | Care Astrophysics Professor Name | Role | Phone | + +------+ + PCP | Unavailable | + +------+ + Encounter Details +--------+ + + + + | Date | Type | Department | Care Team | Description | +--------+ + + + + | 05/22/ | Hospital | [facility] | Conversion | S/P cervical spinal | | 2019 | Encounter | [facility] | Transaction, | fusion; Closed | | | | [address] [place] | Provider Unknown | nondisplaced | | | | [address] [place], [place] | [phone] | fracture of fourth | | | | [address] | | cervical vertebra | | | | [phone] | Nate Rajan, | with routine | | | | | 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 | | | | | [...] XR CERVICAL SPINE 2 | Routin | 05/22/2018 | | Results for this | | OR 3 VIEWS | e | 9:04 AM | | procedure are in the | | | | PST | | results section. | + +--------+ + + + documented in this encounter Results XR Cervical Spine 2 or 3 Views (05/22/2018 9:04 AM PST) + + | Specimen | + + | | + + + + + | Impressions | Performed At | + + + | 1. Status post anterior and interbody fixation at C4 through C7. 2. | | | Lucency involving the anterior inferior endplate of C6, slightly | | | more apparent, which could be secondary to technical factors. | | | Correlate clinically to exclude loosening. Signed by: Dada Rojas | | | Sign Date/Time: 05/22/2018 1:03 PM | | + + + + + + | Narrative | Performed At | + + + | CERVICAL SPINE TWO OR THREE VIEWS CLINICAL INFORMATION: Cervical | | | spinal fusion. Closed nondisplaced fracture of fourth cervical | | | vertebra with routine healing, unspecified fracture morphology, | | | subsequent encounter. COMPARISON: Radiographs from 02/11/2018 | | | FINDINGS: Anterior plate and screw and interbody fixation of the | | | cervical spine from 8 C4 through C7. Hardware appears intact. | | | Slightly increased lucency involving the anterior inferior endplate | | | of C6 which may be secondary to technical factors. No evidence for | | | acute fracture or subluxation. | | + + + + + | Procedure Note | + + | [facility] Conversion - 10/28/2018 10:36 PM PDT CERVICAL SPINE TWO OR THREE VIEWS | | CLINICAL INFORMATION: | | Cervical spinal fusion. Closed nondisplaced fracture of fourth cervical | | vertebra with routine healing, unspecified fracture morphology, | | subsequent encounter. | | COMPARISON: | | Radiographs from 02/11/2018 | | FINDINGS: | | Anterior plate and screw and interbody fixation of the cervical spine | | from 8 C4 through C7. Hardware appears intact. Slightly increased | | lucency involving the anterior inferior endplate of C6 which may be | | secondary to technical factors. No evidence for acute fracture or | | subluxation. | | IMPRESSION: | | 1. Status post anterior and interbody fixation at C4 through C7. | | 2. Lucency involving the anterior inferior endplate of C6, slightly | | more apparent, which could be secondary to technical factors. | | Correlate clinically to exclude loosening. | | Signed by: Dada Rojas | | Sign Date/Time: 05/22/2018 1:03 PM | + + documented in this encounter Visit Diagnoses + + | Diagnosis | + + | S/P cervical spinal fusion Arthrodesis status | + + | Closed nondisplaced fracture of fourth cervical vertebra with routine healing, | | unspecified fracture morphology, subsequent encounter | + + documented in this encounter"
--- OUTSIDE RECORDS SUMMARY | ~2019-04-01 | XMS | Clinical Summary ---
Demographics + + + | Address | [address] | | | [place] [address] | + + + | Home Phone | | + + + | Preferred Language | Unknown | + + + | Marital Status | | + + + | Anabaptist Affiliation | Unknown | + + + | Race | Unknown | + + + | Ethnic Group | Unknown | + + + Author + + + | Author | [facility] (Historical as of | | | 11-01-18) | + + + | Organization | [facility] (Historical as of | | | 11-01-18) | + + + | Address | Unknown | + + + | Phone | Unavailable | + + + Support + + + + + | Name | Relationship | Address | Phone | + + + + + | Radha Dowling | ECON | [address] | | | | | [place] | | | | | [address] | | + + + + + Care Team Providers + +------+ + | Care Doctor Of Dental Surgery Name | Role | Phone | + +------+ + PP | Unavailable | + +------+ + Allergies + + + + + + | Active Allergy | Reactions | Severity | Noted | Comments | | | | | Date | | + + + + + + | Hydromorphone | Agitation | Low | 11/13/19 | | | | | | 18 | | + + + + + + Current Medications + + + +---------+------+------+-------+ | Prescription | Sig. | Disp. | Refills | Star | End | Statu | | | | | | t | Date | s | | | | | | Date | | | + + + +---------+------+------+-------+ | risperiDONE | take 1 or 2 tablets | | 0 | 08/3 | | Activ | | (RISPERDAL) 0.25 MG | by mouth every 6 | | | 1/20 | | e | | tablet | hours if needed for | | | 18 | | | | | AGITATION | | | | | | + + + +---------+------+------+-------+ | oxyCODONE | Take one to two | 80 | 0 | 09/1 | | Activ | | (ROXICODONE) 5 MG | tablets as needed | tablet | | 3/20 | | e | | immediate release | for pain every 6 | | | 18 | | | | tabletIndications: | hours | | | | | | | Closed fracture of | | | | | | | | cervical vertebra, | | | | | | | | unspecified cervical | | | | | | | | vertebral level, | | | | | | | | initial encounter | | | | | | | | (HCC) | | | | | | | + + + +---------+------+------+-------+ | diazePAM (VALIUM) | Take 1 tablet by | 60 | 0 | 09/ | | Activ | | 5 MG | mouth every 6 (six) | tablet | | 3/20 | | e | | tabletIndications: | hours as needed for | | | 18 | | | | Closed fracture of | Muscle spasms. | | | | | | | cervical vertebra, | | | | | | | | unspecified cervical | | | | | | | | vertebral level, | | | | | | | | initial encounter | | | | | | | | ([facility]) | | | | | | | + + + +---------+------+------+-------+ | hospital bed | Dispense and provide | 1 each | 0 | 10/0 | | Activ | | (medical | instruction as | | | 5/20 | | e | | device)Indications: | needed. | | | 18 | | | | Closed nondisplaced | | | | | | | | fracture of fourth | | | | | | | | cervical vertebra | | | | | | | | with routine | | | | | | | | healing, unspecified | | | | | | | | fracture | | | | | | | | morphology, | | | | | | | | subsequent encounter | | | | | | | + + + +---------+------+------+-------+ Active Problems + + + | Problem | Noted Date | + + + | Closed nondisplaced fracture of fourth cervical vertebra with | 11/12/2017 | | routine healing | | + + + | Closed nondisplaced fracture of seventh cervical vertebra with | 11/12/2017 | | routine healing | | + + + | Injury to ligament of cervical spine | 11/12/2017 | + + + | Left arm weakness | 11/12/2017 | + + + Social History + +-------+ [...] + +---------+ + | Alcohol Use | Drinks/We | oz/Week | Comments | | | ek | | | + + +---------+ + | No | | | | + + +---------+ + + + + | Sex Assigned at | Date Recorded | | | | + + + | Not on file | | + + + Last Filed Vital Signs + + + + | Vital Sign | Reading | Time Taken | + + + + | Blood Pressure | 140/79 | 11/14/2017 3:11 AM PDT | + + + + | Pulse | 86 | 11/14/2017 3:11 AM PDT | + + + + | Temperature | 36.8 C (98.2 F) | 11/14/2017 3:11 AM PDT | + + + + | Respiratory Rate | 16 | 11/14/2017 3:11 AM PDT | + + + + | Oxygen Saturation | 95% | 11/14/2017 3:11 AM PDT | + + + + | Inhaled Oxygen | - | - | | Concentration | | | + + + + | Weight | 90.7 kg (200 lb) | 05/22/2018 10:47 AM PST | + + + + | Height | 188 cm (6' 2") | 05/22/2018 10:47 AM PST | + + + + | Body Mass Index | 25.68 | 05/22/2018 10:47 AM PST | + + + + Plan of Treatment + + + + + | Health Maintenance | Due Date | Last Done | Comments | + + + + + | Vaccine: | | | | | Dtap/Tdap/Td (1 - | 0 | | | | Tdap) | | | | + + + + + | Colon Cancer | | | | | Screening [...] | Area | Manufacture | Device | Expira | Model | | | | | r | | tion | / | | | | | | Identi | Date | Serial | | | | | | fier | | / Lot | + +------+--------+ +--------+--------+--------+ | Algrft Db Dbx 05.0cc Fd - | | N/A: | MTF - | | 06/13/ | [id number] | | [id number]: | | Spine | SYNTHES - | | 2020 | | | Qty: 1 on 11/12/2017 by | | sAhlyn | MTFS | | | /[id number] | | Nghia White MD | | al | | | | [id number] | | | | | | | | [id number] | | | | | | | | / | + +------+--------+ +--------+--------+--------+ | Spacer Cc Acf Lordotic 8mm | | N/A: | MUSCULOSKEL | | 07/26/ | [id number] | | Adv - | | Spine | ETAL | | 2020 | | | [id number]: | | Cervic | TRANSPLA - | | | /[id number] | | Qty: 1 on 11/12/2017 by | | yissel | UZIEL | | | [id number] | | Nghia White MD | | | | | | 088 / | + +------+--------+ +--------+--------+--------+ | Spacer Cc Acf Lordotic 6mm | | N/A: | MUSCULOSKEL | | 07/04/ | [id number] | | Adv - | | Spine | ETAL | | 2019 | | | [id number]: Qty: | | Cervic | TRANSPLA - | | | /[id number] | | 1 on 11/12/2017 by Cindy | Pasha dey | UZIEL | | | [id number] | | MD Nghia | | | | | | 24 / | + +------+--------+ +--------+--------+--------+ | Spacer Cc Acf Lordotic 8mm | | N/A: | MUSCULOSKEL | | 07/26/ | [id number] | | Adv - | | Spine | ETAL | | 1 | | | [id number]: | | Cervic | TRANSPLA - | | | /[id number] | | Qty: 1 on 11/12/2017 by | | al | MUSC | | | [id number] | | Nghia White MD | | | | | | 087 / | + +------+--------+ +--------+--------+--------+ | Screw F/A Slf-Tp Prov | | N/A: | GLOBUS | | | 150.03 | | 4.2x16mm - | | Spine | MEDICAL - | | | 6 / / | | [id number]: Qty: 4 on | | Cervic | GLBU | | | | | 11/12/2017 by Cindy, | | al | | | | | | MD Nghia | | | | | | | + +------+--------+ +--------+--------+--------+ | Screw F/A Slf-Tp Prov | | N/A: | GLOBUS | | | 150.03 | | 4.2x18mm - | | Spine | MEDICAL - | | | 8 / / | | [id number]: Qty: 4 on | | Cervic | GLBU | | | | | 11/12/2017 by Cindy, | | al | | | | | | MD Nghia | | | | | | | + +------+--------+ +--------+--------+--------+ | Plate Cerv Ant Prov 3lvl 54mm | | N/A: | GLOBUS | | | 150.35 | | - [id number]: Qty: 1 | | Spine | MEDICAL - | | | 4 / / | | on 11/12/2017 by Cindy, | | Cervic | GLBU | | | | | MD Nghia | | al | | | | | + +------+--------+ +--------+--------+--------+ Results Not on filefrom Last 3 Months Insurance + +--------+ +------+-------+---------+ | Payer | Benefi | Subscriber | Type | Phone | Address | | | t Plan | ID | | | | | | / | | | | | | | Group | | | | | + +--------+ +------+-------+---------+ | [employer] | PROVID | [id number] | PPO | | | | PLAN | ENCE | | | | | | | HEALTH | | | | | | | PLAN | | | | | + +--------+ +------+-------+---------+ + +--------+ +--------+ + + | Guarantor Name | Accoun | Relation to | Date | Phone | Billing Address | | | t Type | Patient | of | | | | | | | | | | + +--------+ +--------+ + + | JOEL CANELA | Person | Self [birth year] | Home: | [address] | | | al/Fam | | 1 | [phone] | [place] | | | adithya | | | [phone] | + +--------+ +--------+ + +
--- OUTSIDE RECORDS SUMMARY | ~2019-04-01 | XMS | Encounter Summary ---
Demographics + + + | Address | [address] | | | [place] [address] | + + + | Home Phone | | + + + | Preferred Language | Unknown | + + + | Marital Status | | + + + | Church Affiliation | Unknown | + + + | Race | Unknown | + + + | Ethnic Group | Unknown | + + + Author + + + | Author | [facility] | | | and [place] | + + + | Organization | [facility] | | | and [place] | + + + | Address | Unknown | + + + | Phone | Unavailable | + + + Support + + + + + | Name | Relationship | Address | Phone | + + + + + | Radha Dowling | ECON | [address] | | | | | [place] | | | | | [address] | | + + + + + Care Team Providers + +------+ + | Care Animal Care Taker Name | Role | Phone | + [...] Unknown | | | | | [place] | [phone] | | | | | [address] | | | | | | [phone] | | | +--------+ + + + [...]
--- OUTSIDE RECORDS SUMMARY | ~2019-04-01 | XMS | Encounter Summary ---
Demographics + + + | Address | [address] | | | [place] [address] | + + + | Home Phone | | + + + | Preferred Language | Unknown | + + + | Marital Status | | + + + | Church Affiliation | Unknown | + + + | Race | Unknown | + + + | Ethnic Group | Unknown | + + + Author + + + | Author | [facility] | | | and [place] | + + + | Organization | [facility] | | | and [place] | + + + | Address | Unknown | + + + | Phone | Unavailable | + + + Support + + + + + | Name | Relationship | Address | Phone | + + + + + | Radha Dowling | ECON | [address] | | | | | [place] | | | | | [address] | | + + + + + Care Team Providers + +------+ + | Care Engraver Letter Name | Role | Phone | + [...] | | | bilateral | | MD oJhnny | | | | | | | [address] | | | | | | | [address] [place] | | | | | | | [place] | | | | | | | [address] | | | | | | | Phone: | | | | | | | [phone] | | | | | | | Fax: | | | | | | | [phone] | + +--------+ + + + + Encounter Details +--------+---------+ + + + | Date | Type | Department | Care Team | Description | +--------+---------+ + + + | 03/30/ | [facility] | [facility] | Owen [facility]head | Primary | | 2020 | Visit | ORTHOPEDIC SURGERY | MD [address] | osteoarthritis of | | | | [address] [facility] | [address] [place] | left knee (Primary | | | | [place], [place] | [place] [address] | Dx) | | | | [address] | [phone] | | | | | [phone] | | | +--------+---------+ + + + [...] on managing symptoms. Tr eatment may include: Ujvs-dvn-mlniqwa or prescription medicines taken by mouth to [...] get worse New symptoms Date Last Reviewed: 05/26/201519991196-3028 [employer]. [address] [place] [address]. All righ ts reserved. This information is not intended as a substitute for professional medical care. Always follow your healthcare professional's instructions. documented in this encounter Progress Notes Owen Whitehead MD - 03/30/2019 3:45 PM PSTFormatting of this note might be dif ferent from the original. [facility] RETURN CLINIC VISIT Pt. Name/Age/: Joel [...] file Gets together: Not on file Attends christian service: Not on file Active member of [...] made to ensure accuracy; however, inadvertent computerized head up operator helper errors may be pre sent. I appreciate [...]
--- OUTSIDE RECORDS SUMMARY | ~2019-04-01 | XMS | Encounter Summary ---
Demographics + + + | Address | [address] | | | [place] [address] | + + + | Home Phone | | + + + | Preferred Language | Unknown | + + + | Marital Status | | + + + | Congregational Affiliation | Unknown | + + + | Race | Unknown | + + + | Ethnic Group | Unknown | + + + Author + + + | Author | [facility] | | | and [place] | + + + | Organization | [facility] | | | and [place] | + + + | Address | Unknown | + + + | Phone | Unavailable | + + + Support + + + + + | Name | Relationship | Address | Phone | + + + + + | Radha Dowling | ECON | [address] | | | | | [place] | | | | | [address] | | + + + + + Care Team Providers + +------+ + | Care Manager Of Loss Prevention Operations Name | Role | Phone | + [...] Unknown | | | | | [place] | [phone] | | | | | [address] | | | | | | [phone] | | | +--------+ + + + [...]
--- OUTSIDE RECORDS SUMMARY | ~2019-04-01 | XMS | Encounter Summary ---
Demographics + + + | Address | [address] | | | [place] [address] | + + + | Home Phone | | + + + | Preferred Language | Unknown | + + + | Marital Status | | + + + | Confucianist Affiliation | Unknown | + + + | Race | Unknown | + + + | Ethnic Group | Unknown | + + + Author + + + | Author | [facility] | | | and [place] | + + + | Organization | [facility] | | | and [place] | + + + | Address | Unknown | + + + | Phone | Unavailable | + + + Support + + + + + | Name | Relationship | Address | Phone | + + + + + | Radha Dowling | ECON | [address] | | | | | [place] | | | | | [address] | | + + + + + Care Team Providers + +------+ + | Care Song And Dance Performer Name | Role | Phone | + +------+ + | Nena Diop | PCP | | | PA | | | + +------+ + Encounter Details +--------+ + + + + | Date | Type | Department | Care Team | Description | +--------+ + + + + | 10/28/ | Hospital | [facility] | Owen Whitehead | Pain in both knees, | | 2019 | Encounter | [facility] [address] | [address] | unspecified | | | | [address] [place] | [address] [place] | chronicity | | | | [place], [place] | [place] [address] | | | | | [address] | [phone] | | | | | [phone] | | | +--------+ + + + [...] | 18 | 9 | | 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 | | | | | [...]
--- OUTSIDE RECORDS SUMMARY | ~2019-04-01 | XMS | Encounter Summary ---
Demographics + + + | Address | [address] | | | [place] [address] | + + + | Home Phone | | + + + | Preferred Language | Unknown | + + + | Marital Status | | + + + | Mu-Ism Affiliation | Unknown | + + + | Race | Unknown | + + + | Ethnic Group | Unknown | + + + Author + + + | Author | [facility] | | | and [place] | + + + | Organization | [facility] | | | and [place] | + + + | Address | Unknown | + + + | Phone | Unavailable | + + + Support + + + + + | Name | Relationship | Address | Phone | + + + + + | Radha Dowling | ECON | [address] | | | | | [place] | | | | | [address] | | + + + + + Care Team Providers + +------+ + | Care Wildlife Manager Name | Role | Phone | + +------+ + | Nena Diop | PCP | | | PA | | | + +------+ + Encounter Details +--------+ + + + + | Date | Type | Department | Care Team | Description | +--------+ + + + + | 03/02/ | Abstract | [facility] | Provider, | | | 2019 | | MEDICINE MARIANA | [address] | | | | | [address] | [place]. | | | | | [place] | [place] [address] | | | | | [address] | | | | | | [phone] | | | +--------+ + + + [...]
--- OUTSIDE RECORDS SUMMARY | ~2019-04-01 | XMS | Encounter Summary ---
Demographics + + + | Address | [address] | | | [place] [address] | + + + | Home Phone | | + + + | Preferred Language | Unknown | + + + | Marital Status | | + + + | Spiritism Affiliation | Unknown | + + + | Race | Unknown | + + + | Ethnic Group | Unknown | + + + Author + + + | Author | [facility] | | | and [place] | + + + | Organization | [facility] | | | and [place] | + + + | Address | Unknown | + + + | Phone | Unavailable | + + + Support + + + + + | Name | Relationship | Address | Phone | + + + + + | Radha Dowling | ECON | [address] | | | | | [place] | | | | | [address] | | + + + + + Care Team Providers + +------+ + | Care Project Architect Name | Role | Phone | + +------+ + | Nick Yeh DO | PCP | | + +------+ + Reason for Visit + + + | Reason | Comments | + + + | Appointment | | + + + Encounter Details +--------+ + + + + | Date | Type | Department | Care Team | Description | +--------+ + + + + | 03/19/ | Telephone | [facility] [place] | Owen Whitehead | Appointment | | 2020 | | ORTHOPEDIC SURGERY | [address] | | | | | [address] [facility] | [facility] [place] | | | | | [place] | [place] [address] | | | | | [address] | [phone] | | | | | [phone] | | | +--------+ + + + [...]
--- OUTSIDE RECORDS SUMMARY | ~2019-04-01 | XMS | Encounter Summary ---
Demographics + + + | Address | [address] | | | [place] [address] | + + + | Home Phone [...] + + | Author | [facility] | | | and [place] | + + + | Organization | [facility] | | | and [place] | + + + | Address | Unknown | + + + | Phone | Unavailable | + + + Support + + + + + | Name | Relationship | Address | Phone | + + + + + | Radha Dowling | ECON | [address] | | | | | [place] | | | | | [address] | | + + + + + Care Team Providers + +------+ + | Care Sub Acute Care Nurse Name | Role | Phone | + [...] Unknown | | | | | [place] | [phone] | | | | | [address] | | | | | | [phone] | | | +--------+ + + + [...] + +--------+ + + + | CT MAXILLOFACIAL WO | Routin | 11/11/2017 | | Results for this | | CONTRAST | e | 10:00 PM | | procedure are in the | | | | PDT | | results section. | + +--------+ + + + documented in this encounter Results CT Maxillofacial wo Contrast (11/11/2017 10:00 PM PDT) + + | Specimen | [...]
--- OUTSIDE RECORDS SUMMARY | ~2019-04-01 | XMS | Encounter Summary ---
Demographics + + + | Address | [address] | | | [place] [address] | + + + | Home Phone | | + + + | Preferred Language | Unknown | + + + | Marital Status | | + + + | Christianity Affiliation | Unknown | + + + | Race | Unknown | + + + | Ethnic Group | Unknown | + + + Author + + + | Author | [facility] | | | and [place] | + + + | Organization | [facility] | | | and [place] | + + + | Address | Unknown | + + + | Phone | Unavailable | + + + Support + + + + + | Name | Relationship | Address | Phone | + + + + + | Radha Dowling | ECON | [address] | | | | | [place] | | | | | [address] | | + + + + + Care Team Providers + +------+ + | Care Drop Wirer Name | Role | Phone | + [...] | | | | [place] | [phone] | | | | | [address] | | | | | | [phone] | | | +--------+ + + + [...]
--- OUTSIDE RECORDS SUMMARY | ~2019-04-01 | XMS | Encounter Summary ---
Demographics + + + | Address | [address] | | | [place] [address] | + + + | Home Phone | | + + + | Preferred Language | Unknown | + + + | Marital Status | | + + + | Adventism Affiliation | Unknown | + + + | Race | Unknown | + + + | Ethnic Group | Unknown | + + + Author + + + | Author | [facility] | | | and [place] | + + + | Organization | [facility] | | | and [place] | + + + | Address | Unknown | + + + | Phone | Unavailable | + + + Support + + + + + | Name | Relationship | Address | Phone | + + + + + | Radha Dowling | ECON | [address] | | | | | [place] | | | | | [address] | | + + + + + Care Team Providers + +------+ + | Care Dockworker Name | Role | Phone | + +------+ + PCP | Unavailable | + +------+ + Encounter Details +--------+ + + + + | Date | Type | Department | Care Team | Description | +--------+ + + + + | 11/12/ | Hospital | [facility] | Silvia White MD | Fall from horse, | | 2018 - | Encounter | CENTER SUR[facility] 8 | [address] | initial encounter; | | | | [address] | 5TH FLOOR | Closed fracture of | | 11/14/ | [facility] | [place] | cervical vertebra, | | 2018 | | [address] | [address] | unspecified cervical | | | | [phone] | [phone] | vertebral level, | | | | | | initial encounter | | | | | | ([facility]) | +--------+ + + + + Social [...] 1051 Date of Service: 11/14/17904 Status: Signed Recycling Or Rubbish Collector: Silvia White MD (Physician) [facility] Service: Neurosurgery Discharge Summary Date of Admission: [...] postop. He was maint ained in an Rainbow collar. He did have some impulsivity in [...] - ANTERIOR; Surgeon: Silvia White MD; Location: [facility]; Service: Neurosurgery; Laterality: N/A; C4-7 Allergies Allergen [...] biceps 3/5, triceps 3/5, WE 4/ 5, upset operator 4/5. Numbness in left 1st - 3rd [...] for Cspine fractures and ligament injury. -Continue Rainbow collar -Plan d/c home -No work or driving for now -Followup in 2 weeks 2. Closed head injury, continues to be impulsive, sometimes agitated/anxious. -Should improve with time, non-surgical 3. Left arm weakness. 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 No discharge procedures on file. Follow up: Silvia White MD [address] [facility] [address] In 2 weeks For re-check Jack Funez MD [address] [place] [address] [place] [address] Medication List START taking these [...] 1635 Date of Service: 11/14/17904 Status: Signed Recycling Or Rubbish Collector: Linette Cochran RN (Registered Nurse) Discharge Planning: CM sent HH ref to [facility], spoke to pt PCP does not sign [...] 0716 Date of Service: 11/14/17712 Status: Signed Recycling Or Rubbish Collector: Silvia White MD (Physician) [facility] Service: Neurological Surgery Progress Note Hospital Day: [...] biceps 3/5, triceps 3/5, WE 4/ 5, upset operator 4/5. Numbness in left 1st - 3rd [...] for Cspine fractures and ligament injury. -Continue Rainbow collar -Plan d/c home today -No work [...] Notes by Silvia White MD at 11/13/17 2613 Author: Silvia White MD Service: Neurosurgery Author Type: Physician Filed: 11/13/171901 Date of Service: 11/13/171855 Status: Signed Recycling Or Rubbish Collector: Silvia White MD (Physician) [facility] Service: Neurological Surgery Progress Note Hospital Day: [...] biceps 3/5, triceps 3/5, WE 4/ 5, upset operator 4/5. Numbness in left 1st - 3rd [...] for Cspine fractures and ligament injury. -Continue Rainbow collar -Continue drain one more day 2. [...] Author: Percy Callejas Service: (none) Author Type: Flower Picker Filed: 11/13/171807 Date of Service: 11/13/171754 Status: Signed Recycling Or Rubbish Collector: Percy Callejas (Flower Picker) Request by pt & d/t elrmjyytk-urbrantik-ilvxoo distress ("It happened so fast") r/t to [...] and self-sufficiency. 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 onver sophy Transaction, Provider Unknown - 11/13/2017 11:35 AM PDT Case Management by Linette Cochran RN at 11/13/171134 Author: Linette Cochran RN Service: (none) Author Type: Registered Nurse Filed: 11/13/171135 Date of Service: 11/13/171134 Status: Signed Recycling Or Rubbish Collector: Linette Cochran RN (Registered Nurse) Discharge Planning: CM attended RN rounding, pt to remain likely one more day, no change to ADC plan of home with spouse, pt resides in [facility], ref sent to [facility]. my Bender - 11/13/2017 11:05 AM PDTFormatting of this note might be different from the origi nal. Progress Notes by Amy Mills PA-C at 11/13/17 1105 Author: mAy Mills PA-C Service: General Surgery Author Type: Physician Assista nt - Certified Filed: 11/13/17 1310 Date of Service: 11/13/17 1105 Status: Signed Recycling Or Rubbish Collector: Amy Mills PA-C (Physician Chief Green Officer - Certified) Progress Note Hospital Day: LOS: 1 day Post-Op Day: 1 Day Post-Op Subjective This is a 56 y.o. male patient who presented to [facility] with a diagn osis of fall from [...] Left arm weakness Signed: Amy Mills PA-C [facility] Acute Care Surgery Portions of this chart [...] 11/12/172018 Date of Service: 11/12/172017 Status: Signed Recycling Or Rubbish Collector: Hadley Ochoa RN (Registered Nurse) Report off to REY[facility] Trejo PACU. Patient in stable condition. HR 80-90s. Will continue to karis tor. onver sophy Transaction, Provider Unknown - 11/12/2017 8:07 PM PDT Nurse Progress Note by Hadley Ochoa RN at 11/12/172006 Author: Hadley Ochoa RN Service: (none) Author Type: Registered Nurse Filed: 11/12/172011 Date of Service: 11/12/172006 Status: Signed Recycling Or Rubbish Collector: Hadley Ochoa RN (Registered Nurse) Dr. Espino [...] 11/12/171957 Date of Service: 11/12/171949 Status: Signed Recycling Or Rubbish Collector: Hadley Ochoa RN (Registered Nurse) Dr. Espino [...] 180 Date of Service: 11/12/171799 Status: Signed Recycling Or Rubbish Collector: Nakia Bhagat RN (Registered Nurse) End of shift chart review done. Nakia Bhagat RN onver sophy Transaction, Provider Unknown - 11/12/2017 1:58 PM PDT Case Management by SONIA Jefferson at 11/12/17 1358 Author: SONIA Jefferson Service: (none) Author Type: Immigration Guard Filed: 11/12/17 1401 Date of Service: 11/12/17 1358 Status: Addendum Recycling Or Rubbish Collector: SONIA Jefferson (Immigration Guard) Related Notes: Original Note by SONIA Jefferson (Immigration Guard) filed at 11/12/17 1400 11/12/17 1356 Discharge Planning Evaluation Admitting Diagnosis AMS, neck trauma Readmission No Living Arrangements Spouse/significant other (Radha [phone]) Support Systems Spouse/significant other Type of Residence [...] the business. They are interested in private-pay [employer] information, possibly home health... Depending on his recovery. CM also supplied healthcare POA/advanced directive paperwork. Patient's PCP is: JACK FUNEZ Patient's insurance: [employer] Coverage concerns: no Medication coverage/concerns: yes/no Community [...] 11/12/17407 Date of Service: 11/12/17407 Status: Signed Recycling Or Rubbish Collector: Rachid Woodruff RPH (Pharmacist) Note ccl 95.9ml/min [...] NEGATIVE Testing | | | performed at [facility];[address] [place] [address];[place] [address] | | + + + + +---------+ [...] 3:40AM Referring Provider | | | Line: [phone] ID: [id number] | | + + + [...] performed from the aortic arch through the [place] of [place]. Routine | | | axial [...] performed from the aortic arch through the [place] of | | Car. Routine axial CT [...] 2017 | | 3:40AM Referring Provider Line: [phone] ID: [id number] | | | |Right Carotid: [...] 12 2017 3:40AM Referring Provider Line: [phone] ID: [id number] | + + MRI Brain [...] 3:24AM Referring Provider Line: | | | [phone] ID: [id number] | | + + + [...] | | 2017 3:24AM Referring Provider Line: [phone] ID: [id number] | | | |Ventricles/Cisterns: No [...] 12 2017 3:24AM Referring Provider Line: [phone] ID: [id number] | + + MRI Cervical [...] | | 2017 3:21AM Referring Provider Line: [phone] ID: [id number] | | + + + [...] Nov 12 2017 3:21AM Referring Provider Line: [phone] ID: [id number] | |C2-C3: Unremarkable. | | [...] 12 2017 3:21AM Referring Provider Line: [phone] ID: [id number] | + + Protime INR [...] | | | | | performed at [facility] | | | | | | [facility];[place], [place] | | | | | | [address] | | | | + + + [...] | | | | | performed at [facility];[address] | | | | | | [address];[place], [place] | | | | | | [address] | | | | + + + [...] | | | | | performed at [facility];[address] | | | | | | [facility];[place], [place] | | | | | | [address] | | | | + + + [...] | | | | | ONLY, -COMPUTER (816), | | | | | | index editor DORA COBB (2) | | | | | | on 11/12/2017 1:36:42 PM | | | | | | | | | | + + + + + + + + | Specimen | + + | | + + + + + | Narrative | Performed At | + + + | Historically converted procedure from [facility] environment | EXTERNAL LAB | + + [...]
--- OUTSIDE RECORDS SUMMARY | ~2019-04-01 | XMS | Clinical Summary ---
Demographics + + + | Address | [address] | | | [place] [address] | + + + | Home Phone | | + + + | Preferred Language | Unknown | + + + | Marital Status | | + + + | Samaritan Affiliation | Unknown | + + + | Race | Unknown | + + + | Ethnic Group | Unknown | + + + Author + + + | Author | [facility] | | | and [place] | + + + | Organization | [facility] | | | and [place] | + + + | Address | Unknown | + + + | Phone | Unavailable | + + + Support + + + + + | Name | Relationship | Address | Phone | + + + + + | Radha Dowling | ECON | [address] | | | | | [place] | | | | | [address] | | + + + + + Care Team Providers + +------+ + | Care Fruit Peeler Name | Role | Phone | + [...] | MTF - | | 06/13/ | 708558 | | [id number]: | | Spine | SYNTHES - | | 2019 | | | Qty: 1 on 11/12/2017 by | | Cervic | MTFS | | | /[id number] | | Nghia White MD | | al | | | | 716838 | | | | | | | | 147138 | | | | | | | | / | + +------+--------+ +--------+--------+--------+ | Spacer Cc Acf Lordotic 8mm | | N/A: | MUSCULOSKEL | | 07/26/ | 137373 | | Adv - | | Spine | ETAL | | 2020 | | | [id number]: | | Cervic | TRANSPLA - | | | /[id number] | | Qty: 1 on 11/12/2017 by | | al | [facility]C | | | [id number] | | Nghia White MD | | | | | | 088 / | + +------+--------+ +--------+--------+--------+ | Spacer Cc Acf Lordotic 6mm | | N/A: | MUSCULOSKEL | | 07/04/ | 615667 | | Adv - | | Spine | ETAL | | 2019 | | | [id number]: Qty: | | Cervic | TRANSPLA - | | | /[id number] | | 1 on 11/12/2017 by Cindy, | | al | [facility] | | | 770384 | | MD Nghia | | | | | | 24 / | + +------+--------+ +--------+--------+--------+ | Spacer Cc Acf Lordotic 8mm | | N/A: | MUSCULOSKEL | | 07/26/ | 903403 | | Adv - | | Spine | ETAL | | 2020 | | | [id number]: | | Cervic | TRANSPLA - | | | /[id number] | | Qty: 1 on 11/12/2017 by | | yissel | [facility] | | | 817112 | | Nghia White MD | | | | | | 087 / | + +------+--------+ +--------+--------+--------+ | Screw F/A Slf-Tp Prov | | N/A: | GLOBUS | | | 150.03 | | 4.2x16mm - | | Spine | MEDICAL - | | | 6 / / | | [id number]: Qty: 4 on | | Cervic | [...] | | 8 / / | | [id number]: Qty: 4 on | | Cervic | GLBU | | | | | 11/12/2017 by Cindy, | | yissel | | | | | | MD Nghia | | | | | | | + +------+--------+ +--------+--------+--------+ | Plate Cerv Ant Prov 3lvl 54mm | | N/A: | GLOBUS | | | 150.35 | | - [id number]: Qty: 1 | | Spine | MEDICAL [...] +---------+------+ | [facility] | PHP | [id number] | 03/18/19 | [phone] | | PPO | | PLAN | [...] Person | Self | [birth year] | [address] | | | al/Fam | | 1961 | [phone] | [address] [place] | | | [place] | | | 4 (Home) | [address] | + +--------+ +--------+ + + Advance Directives + + + + + | Type | Date Recorded | Patient | Explanation | | | | Mathematical Engineering Technician | | + + + + + | Power of | | | | | Collar Tailor | | | | + + + + + | Advance | | | | | Directive | | | | + + + + +
--- OUTSIDE RECORDS SUMMARY | ~2019-04-01 | XMS | Clinical Summary ---
Demographics + + + | Address | [address] | | | [place] [address] | + + + | Home Phone | | + + + | Preferred Language | Unknown | + + + | Marital Status | | + + + | Zoroastrianism Affiliation | Unknown | + + + | Race | Unknown | + + + | Ethnic Group | Unknown | + + + Author + + + | Author | [facility] (Historical as of | | | 11-01-18) | + + + | Organization | [facility] (Historical as of | | | 11-01-18) | + + + | Address | Unknown | + + + | Phone | Unavailable | + + + Support + + + + + | Name | Relationship | Address | Phone | + + + + + | Radha Dowling | ECON | [address] | | | | | [place] | | | | | [address] | | + + + + + Care Team Providers + +------+ + | Care Statement Processor Name | Role | Phone | + [...] | | | | | | | ([facility]) | | | | | | | [...] | MTF - | | 06/13/ | 052006 | | [id number]: | | Spine | SYNTHES - | | 2020 | | | Qty: 1 on 11/12/2017 by | | Ashlyn | MTFS | | | /[id number] | | Nghia White MD | | al | | | | 963432 | | | | | | | | 359462 | | | | | | | | / | + +------+--------+ +--------+--------+--------+ | Spacer Cc Acf Lordotic 8mm | | N/A: | MUSCULOSKEL | | 07/26/ | 810891 | | Adv - | | Spine | ETAL | | 2020 | | | [id number]: | | Cervic | TRANSPLA - | | | /[id number] | | Qty: 1 on 11/12/2017 by | | yissel | UZIEL | | | 223932 | | Nghia White MD | | | | | | 088 / | + +------+--------+ +--------+--------+--------+ | Spacer Cc Acf Lordotic 6mm | | N/A: | MUSCULOSKEL | | 07/04/ | 717451 | | Adv - | | Spine | ETAL | | 2019 | | | [id number]: Qty: | | Cervic | TRANSPLA - | | | /[id number] | | 1 on 11/12/2017 by Cindy | Pasha dey | UZIEL | | | [id number] | | MD Nghia | | | | | | 24 / | + +------+--------+ +--------+--------+--------+ | Spacer Cc Acf Lordotic 8mm | | N/A: | MUSCULOSKEL | | 07/26/ | 459821 | | Adv - | | Spine | ETAL | | 1 | | | [id number]: | | Cervic | TRANSPLA - | | | /[id number] | | Qty: 1 on 11/12/2017 by | | al | [facility] | | | [id number] | | Nghia White MD | | | | | | 087 / | + +------+--------+ +--------+--------+--------+ | Screw F/A Slf-Tp Prov | | N/A: | GLOBUS | | | 150.03 | | 4.2x16mm - | | Spine | MEDICAL - | | | 6 / / | | [id number]: Qty: 4 on | | Cervic | [...] | | 8 / / | | [id number]: Qty: 4 on | | Cervic | GLBU | | | | | 11/12/2017 by Cindy, | | al | | | | | | MD Nghia | | | | | | | + +------+--------+ +--------+--------+--------+ | Plate Cerv Ant Prov 3lvl 54mm | | N/A: | GLOBUS | | | 150.35 | | - [id number]: Qty: 1 | | Spine | MEDICAL [...] +------+-------+---------+ | [facility] | PROVID | [id number] | PPO | | | | PLAN [...] | Self | [birth year] | Home: | [address] | | | al/Fam | | 1 | [phone] [place] | | | ad[place]ya | | | [phone] | + +--------+ +--------+ + +
--- OUTSIDE RECORDS SUMMARY | ~2019-04-01 | XMS | Encounter Summary ---
Demographics + + + | Address | [address] | | | [place] [address] | + + + | Home Phone | | + + + | Preferred Language | Unknown | + + + | Marital Status | | + + + | Congregational Affiliation | Unknown | + + + | Race | Unknown | + + + | Ethnic Group | Unknown | + + + Author + + + | Author | [facility] | | | and [place] | + + + | Organization | [facility] | | | and [place] | + + + | Address | Unknown | + + + | Phone | Unavailable | + + + Support + + + + + | Name | Relationship | Address | Phone | + + + + + | Radha Dowling | ECON | [address] | | | | | [place] | | | | | [address] | | + + + + + Care Team Providers + +------+ + | Care Clinical Dermatologist Name | Role | Phone | + +------+ + PCP | Unavailable | + +------+ + Encounter Details +--------+ + + + + | Date | Type | Department | Care Team | Description | +--------+ + + + + | 12/26/ | Hospital | [facility] | Conversion | S/P cervical spinal | | 2018 | Encounter | [facility] XRAY | Transaction, | fusion | | | | [address] | Provider Unknown | | | | | [address] [place], [place] | [phone] | | | | | [address] | | | | | | [phone] | Nghia White MD | | | | | | [address] [facility] [address] | | | | | | FLOOR [place], [place] | | | | | | [address] | | | | | | [phone] | | | | | | | [...] | 18 | 9 | | bed (behavioral medical director) | needed. | | | | | [...]
--- OUTSIDE RECORDS SUMMARY | ~2019-04-01 | XMS | Encounter Summary ---
Demographics + + + | Address | [address] | | | [place] [address] | + + + | Home Phone [...] Author | [facility] | | | and [place] | + + + | Organization | [facility] | | | and [place] | + + + | Address | Unknown | + + + | Phone | Unavailable | + + + Support + + + + + | Name | Relationship | Address | Phone | + + + + + | Radha Dowling | ECON | [address] | | | | | [place] | | | | | [address] | | + + + + + Care Team Providers + +------+ + | Care Inductor Tester Name | Role | Phone | + +------+ + | Nick Yeh DO | PCP | | + +------+ + Encounter Details +--------+ + + + + | Date | Type | Department | Care Team | Description | +--------+ + + + + | 03/10/ | Abstract | [facility] | Nick Yeh, | | | 2019 | | [facility] [place] | DO [address] | | | | | [address] | [place] | | | | | [place] | [address] | | | | | [address] | | | | | | [phone] | | | +--------+ + + + [...]
--- OUTSIDE RECORDS SUMMARY | ~2019-04-01 | XMS | Encounter Summary ---
Demographics + + + | Address | [address] | | | [place] [address] | + + + | Home Phone | | + + + | Preferred Language | Unknown | + + + | Marital Status | | + + + | Rastafarian Affiliation | Unknown | + + + | Race | Unknown | + + + | Ethnic Group | Unknown | + + + Author + + + | Author | [facility] | | | and [place] | + + + | Organization | [facility] | | | and [place] | + + + | Address | Unknown | + + + | Phone | Unavailable | + + + Support + + + + + | Name | Relationship | Address | Phone | + + + + + | Radha Dowling | ECON | [address] | | | | | [place] | | | | | [address] | | + + + + + Care Team Providers + +------+ + | Care National Sales Consultant Name | Role | Phone | [...] | | | [address] [facility] | [facility] [place] | | | | | [place] | [place] [address] | | | | | [address] | [phone] | | | | | [phone] | | | +--------+ + + + [...]
--- OUTSIDE RECORDS SUMMARY | ~2019-04-01 | XMS | Encounter Summary ---
Demographics + + + | Address | [address] | | | [place] [address] | + + + | Home Phone | | + + + | Preferred Language | Unknown | + + + | Marital Status | | + + + | Hoahaoism Affiliation | Unknown | + + + | Race | Unknown | + + + | Ethnic Group | Unknown | + + + Author + + + | Author | [facility] | | | and [place] | + + + | Organization | [facility] | | | and [place] | + + + | Address | Unknown | + + + | Phone | Unavailable | + + + Support + + + + + | Name | Relationship | Address | Phone | + + + + + | Radha Dowling | ECON | [address] | | | | | [place] | | | | | [address] | | + + + + + Care Team Providers + +------+ + | Care Preparation Room Worker Name | Role | Phone | + [...] Unknown | | | | | [place] | [phone] | | | | | [address] | | | | | | [phone] | | | +--------+ + + + [...]
--- OUTSIDE RECORDS SUMMARY | ~2019-04-01 | XMS | Encounter Summary ---
Demographics + + + | Address | [address] | | | [place] [address] | + + + | Home Phone | | + + + | Preferred Language | Unknown | + + + | Marital Status | | + + + | Gnosticist Affiliation | Unknown | + + + | Race | Unknown | + + + | Ethnic Group | Unknown | + + + Author + + + | Author | [facility] | | | and [place] | + + + | Organization | [facility] | | | and [place] | + + + | Address | Unknown | + + + | Phone | Unavailable | + + + Support + + + + + | Name | Relationship | Address | Phone | + + + + + | Radha Dowling | ECON | [address] | | | | | [place] | | | | | [address] | | + + + + + Care Team Providers + +------+ + | Care Sales And Marketing Specialist Name | Role | Phone | [...] Results; | | 2019 | | [facility] [place] | DO [address] | Referral | | | | [address] | [place] | | | | | [place] | [address] | | | | | [address] | | | | | | [phone] | | | +--------+ + + + [...]
--- OUTSIDE RECORDS SUMMARY | ~2019-04-01 | XMS | Encounter Summary ---
Demographics + + + | Address | [address] | | | [place] [address] | + + + | Home Phone | | + + + | Preferred Language | Unknown | + + + | Marital Status | | + + + | Alevism Affiliation | Unknown | + + + | Race | Unknown | + + + | Ethnic Group | Unknown | + + + Author + + + | Author | [facility] | | | and [place] | + + + | Organization | [facility] | | | and [place] | + + + | Address | Unknown | + + + | Phone | Unavailable | + + + Support + + + + + | Name | Relationship | Address | Phone | + + + + + | Radha Dowling | ECON | [address] | | | | | [place] | | | | | [address] | | + + + + + Care Team Providers + +------+ + | Care Procurement Professional Name | Role | Phone | + [...] [place] | | | | | | [address] | [place], [place] | | | | | | Phone: | [phone] | | | | | | [phone] | Phone: | | | | | | Fax: | [phone] | | | | | | [phone] | Fax: | | | | | | | [phone] | + + + + + + + Reason for Visit + + + | Reason | Comments | + + + | Establish Care | | + + + Encounter Details +--------+---------+ + + + | Date | Type | Department | Care Team | Description | +--------+---------+ + + + | 03/04/ | Office | [facility] | Nick Yeh, | Encounter to | | 2019 | Visit | [facility] | DO [address] | establish care | | | | [address] | [place] [facility] | (Primary Dx); | | | | [place], [place] | [address] | Preventative health | | | | [address] | | care; Colon cancer | | | | [phone] | | screening; Prostate | | | [...] encounter Patient Instructions Patient Instructions Shanta Ramos, Chemical Dependency Counselor - 03/04/2019 2:00 PM PSTFormatti roman of this note might be different from the original. Please complete fasting labs: Please fast 10 hours on average prior to blood test. Water and black coffee are fine Lab Hours: [facility]: [address] Saturday-Saturday 7 [...] 10 business days, please call our Referral Public Works Director at [phone] to check on the status of the [...] men in this age group Every visit [address] [place] [address] [facility] Date Last Reviewed: 04/18/201619998748-6485 [employer]. [address] [place] [id number]. All righ ts reserved. This information is [...] care. Prior pcp was Dr. Reeves in [place]. Preventive Health/Routine Physical Exam: Patient presents for [...] 3. Colon cancer screening AMB REFERRAL TO [facility]ASCO 4. Prostate cancer screening PSA, [...] screening Referral placed. - AMB REFERRAL TO [facility]ASCO 4. Prostate cancer screening Labs [...] nuñez DO. Electronically signed by: Shanta Ramos, Chemical Dependency Counselor 03/04/2019 1:51 PM I have reviewed and edited this note: Nick Yeh DO 03/05/19 I, Nick Yeh DO , personally performed the services described in this documentation, as scribed in my presence by Shanta Ramos and it is both accurate and complete. Electronical ly signed by Nick Yeh DO on 03/05/2019 at 12:54 PM . This note is dictated using zoidu voice recognition software. This note was dictated [...]
--- OUTSIDE RECORDS SUMMARY | ~2019-04-01 | XMS | Encounter Summary ---
Demographics + + + | Address | [address] | | | [place] [address] | + + + | Home Phone [...] | Author | [facility] | | | and [place] | + + + | Organization | [facility] | | | and [place] | + + + | Address | Unknown | + + + | Phone | Unavailable | + + + Support + + + + + | Name | Relationship | Address | Phone | + + + + + | Radha Dowling | ECON | [address] | | | | | [place] | | | | | [address] | | + + + + + Care Team Providers + +------+ + | Care Boat Canvas Installer Name | Role | Phone | + +------+ + PCP | Unavailable | + +------+ + Encounter Details +--------+ + + + + | Date | Type | Department | Care Team | Description | +--------+ + + + + | 05/22/ | Hospital | [facility] | Conversion | S/P cervical spinal | | 2019 | Encounter | [facility] | Transaction, | fusion; Closed | | | | [address] [place] | Provider Unknown | nondisplaced | | | | [address] [place], [place] | [phone] | fracture of fourth | | | | [address] | | cervical vertebra | | | | [phone] | Nate Rajan, | with routine | | | | | LEGAL BILLING COORDINATOR [address] | healing, unspecified | | | | | [address] | fracture | | | | | [place] [address] | morphology, | | | | | [phone] | subsequent encounter | | | | [...] 18 | 9 | | bed (medical referral coordinator) | needed. | | | | | [...]
--- OUTSIDE RECORDS SUMMARY | ~2019-04-01 | XMS | Encounter Summary ---
Demographics + + + | Address | [address] | | | [place] [address] | + + + | Home Phone | | + + + | Preferred Language | Unknown | + + + | Marital Status | | + + + | Temple Affiliation | Unknown | + + + | Race | Unknown | + + + | Ethnic Group | Unknown | + + + Author + + + | Author | [facility] | | | and [place] | + + + | Organization | [facility] | | | and [place] | + + + | Address | Unknown | + + + | Phone | Unavailable | + + + Support + + + + + | Name | Relationship | Address | Phone | + + + + + | Radha Dowling | ECON | [address] | | | | | [place] | | | | | [address] | | + + + + + Care Team Providers + +------+ + | Care Wool Supplier Name | Role | Phone | + +------+ + | Nick Yeh DO | PCP | | + +------+ + Encounter Details +--------+ + + + + | Date | Type | Department | Care Team | Description | +--------+ + + + + | 10/05/ | Orders Only | [facility] | Nate Rajan, | | | 2018 | | NEUROSURGERY [address] | FABRIC FINISHER [address] | | | | | [address] | [address] | | | | | [place], [place] | [place] [address] | | | | | [address] | [phone] | | | | | [phone] | | | +--------+ + + + [...]
--- OUTSIDE RECORDS SUMMARY | ~2019-04-01 | XMS | Encounter Summary ---
Demographics + + + | Address | [address] | | | [place] [address] | + + + | Home Phone | | + + + | Preferred Language | Unknown | + + + | Marital Status | | + + + | Presybeterian Affiliation | Unknown | + + + | Race | Unknown | + + + | Ethnic Group | Unknown | + + + Author + + + | Author | [facility] | | | and [place] | + + + | Organization | [facility] | | | and [place] | + + + | Address | Unknown | + + + | Phone | Unavailable | + + + Support + + + + + | Name | Relationship | Address | Phone | + + + + + | Radha Dowling | ECON | [address] | | | | | [place] | | | | | [address] | | + + + + + Care Team Providers + +------+ + | Care Pc Tech Name | Role | Phone | + [...] Provider Unknown | | | | | [place], [place] | [phone] | | | | | [address] | | | | | | [phone] | | | +--------+ + + + [...]
== END 2019-04-01 22:46 | disposition home or self-care (01) ==
LOC: ED 20:17
DX: S06.9X1A Unspecified intracranial injury with loss of consciousness of 30 minutes or less, initial encounter (principal); W22.8XXA Striking against or struck by other objects, initial encounter
CPT/HCPCS: 70450; 99284-25